=== PATIENT | male | born 1945 | race African-American/Black ===

== ENCOUNTER 2017-06-14 08:28 | Day surgery (SDC) | payer MEDICARE, BC ==
[2017-06-14 08:45] VITALS: BP 171/75; TEMP 98.2
[2017-06-14] MEDS ORDERED: Epoetin (ESRD) 10,000 UNITS/ML VIAL SC SCH (08:45)
[2017-06-14] MEDS ORDERED: FLU VACC TS2017-18 (>65YR) 0.5 ML SYRINGE IM ONE (12:00)
== END 2017-06-14 10:17 | disposition home or self-care (01) ==
LOC: ONC/OP 08:28
PROVIDERS: ATTEND Internal Medicine Nephrology
DX: D63.1 Anemia in chronic kidney disease (principal); E78.5 Hyperlipidemia, unspecified; E11.22 Type 2 diabetes mellitus with diabetic chronic kidney disease; I12.0 Hypertensive chronic kidney disease with stage 5 chronic kidney disease or end stage renal disease; N18.6 End stage renal disease; I25.10 Atherosclerotic heart disease of native coronary artery without angina pectoris; Z99.2 Dependence on renal dialysis; Z88.1 Allergy status to other antibiotic agents; Z87.891 Personal history of nicotine dependence; Z79.01 Long term (current) use of anticoagulants; Z79.82 Long term (current) use of aspirin; Z79.84 Long term (current) use of oral hypoglycemic drugs; Z90.5 Acquired absence of kidney; Z95.9 Presence of cardiac and vascular implant and graft, unspecified
CPT/HCPCS: 85014; 85018; 85049; 96372; Q4081

== ENCOUNTER 2017-06-28 10:04 | Day surgery (SDC) | payer MEDICARE, BC ==
[2017-06-28 10:21] VITALS: BP 115/70; TEMP 98.3
[2017-06-28] MEDS ORDERED: Epoetin (ESRD) 10,000 UNITS/ML VIAL SC SCH (10:30)
[2017-06-28 10:38] LABS: Hematocrit 31.8 % (42.0-52.0)
--- OUTSIDE RECORDS SUMMARY | 2017-07-03 03:56 | XMS | Clinical Summary ---
:1945 Author Organization [facility] Address [address] [place] [address] Phone Care Team Providers Name Role Phone , Primary Care Provider Unavailable Allergies Active Allergy Reactions Severity Noted Date Comments Cefaclor Rash Low 08/21/2012 Current Medications Prescription Sig. Disp. Refills Start Date End Date Status GLYBURIDE ORAL Take 10 mg by mouth Active daily . HYDROcodone-acetaminophen Take 1 tablet by Active (VICODIN) 5-500 mg per mouth every 6 (six) tablet hours as needed. 1-2 tabs as needed sevelamer (RENVELA) 800 Take 800 mg by Active mg tablet mouth 3 (three) times daily with meals . folic acid-multivitamins Take 1 tablet by Active (B COMPLEX-VITAMIN mouth daily. C-FOLIC ACID) 0.8 mg Tab tablet cholecalciferol, vitamin Take 3,000 Units by Active D3, 1,000 unit capsule mouth daily. fluticasone (FLONASE) 50 1 spray by Nasal Active mcg/actuation nasal spray route daily. cetirizine (ZYRTEC) 10 MG Take 10 mg by mouth Active tablet daily. atorvastatin (LIPITOR) 40 Take 40 mg by mouth Active MG tablet daily. metoprolol (TOPROL-XL) 50 Take 50 mg by mouth Active MG 24 hr tablet daily. cinacalcet (SENSIPAR) 30 Take 30 mg by mouth Active MG tablet daily. clopidogrel (PLAVIX) 75 Take 75 mg by mouth Active mg tablet daily. aspirin 81 MG EC tablet Take 81 mg by mouth Active daily. Active Problems Problem Noted Date Secondary hyperparathyroidism of renal origin (HCC) 11/06/2016 Essential hypertension with goal blood pressure less than 140/90 11/06/2016 Coronary artery disease involving [place] coronary artery of [place] heart 11/06 without angina pectoris Patient awaiting renal transplant 11/06/2016 End stage renal disease (HCC) 06/03/2015 Pre-transplant evaluation for ESRD (end stage renal disease) 06/03/2015 History of prostate cancer 06/03/2015 Preop testing 07/24/2013 CAD (coronary artery disease) 07/24/2013 ESRD (end stage renal disease) (HCC) 08/21/2012 HTN (hypertension) 08/21/2012 Hyperlipidemia 08/21/2012 Hemochromatosis 08/21/2012 Smoking 08/21/2012 Family History Medical History Relation Name Comments Unremarkable Brother Cristobal Unremarkable Brother Gus Diabetes Brother Ajay Hypertension Brother Ajay Colon cancer Father from it Breast cancer Mother Hypertension Mother Unremarkable Sister Velma Diabetes Sister Tatiana Hypertension Sister Tatiana Relation Name Status Comments Brother Josh Alive 39 Brother Cristobal Alive Brother Gus Alive 50 Brother Ajay Alive 68 Daughter Martina Alive 48 Daughter Daylin Alive 38 Daughter Scharanda Alive 42 Father (Age 70's) Colon cancer Mother (Age 73) Breast cancer Sister (Age 2 mo) pneumonia Sister Velma Alive 40 Sister Catia Alive 58 Sister Tatiana Alive 62 Son Caio Alive 35 Son Donato Alive 35 Son Afia Alive 25 Son Mauricio Alive 38 Social History Tobacco Use Types Packs/Day Years Used Date Never Smoker Smokeless Tobacco: Never Used Alcohol Use Drinks/Week oz/Week Comments No 0.0 No alcohol use Sex Assigned at Date Recorded Not on file Last Filed Vital Signs Vital Sign Reading Time Taken Blood Pressure 178/84 11/06/2016 10:48 AM AUDIO VIDEO REPAIRER Pulse 97 11/06/2016 10:48 AM AUDIO VIDEO REPAIRER Temperature 35.9 C (96.7 F) 11/06/2016 10:48 AM AUDIO VIDEO REPAIRER Respiratory Rate 18 11/06/2016 10:48 AM AUDIO VIDEO REPAIRER Oxygen Saturation 100% 07/25/2013 11:32 AM AUDIO VIDEO REPAIRER Inhaled Oxygen Concentration - - Weight 98.5 kg (217 lb 1.6 oz) 11/06/2016 10:48 AM AUDIO VIDEO REPAIRER Height 175.3 cm (5' 9") 11/06/2016 10:48 AM AUDIO VIDEO REPAIRER Body Mass Index 32.06 11/06/2016 10:48 AM AUDIO VIDEO REPAIRER Plan of Treatment Health Maintenance Due Date Last Done Comments INFLUENZA VACCINE 06/09/2017 Results Not on filefrom Last 3 Months
== END 2017-06-28 10:50 | disposition home or self-care (01) ==
LOC: ONC/OP 10:04
PROVIDERS: ATTEND Internal Medicine Nephrology
DX: E11.22 Type 2 diabetes mellitus with diabetic chronic kidney disease (principal); N18.6 End stage renal disease; D63.1 Anemia in chronic kidney disease; E78.5 Hyperlipidemia, unspecified; Z88.1 Allergy status to other antibiotic agents; Z87.891 Personal history of nicotine dependence
CPT/HCPCS: 36415; 85014; 85018; 85049; 96372; Q4081

== ENCOUNTER 2017-07-12 09:59 | Day surgery (SDC) | payer MEDICARE, BC ==
[2017-07-12 10:28] LABS: Hematocrit 31.8 % (42.0-52.0)
[2017-07-12] MEDS ORDERED: Epoetin (ESRD) 10,000 UNITS/ML VIAL SC SCH (10:30)
--- OUTSIDE RECORDS SUMMARY | 2017-07-12 10:41 | XMS | Clinical Summary ---
:1945 Author Organization [facility] Address [address] [place] [address] Phone Care Team Providers Name Role Phone [...] than 140/90 11/06/2016 Coronary artery disease involving [place] coronary artery of [place] heart 11/06 without angina pectoris Patient awaiting [...] Taken Blood Pressure 178/84 11/06/2016 10:48 AM TRADE EMBALMER Pulse 97 11/06/2016 10:48 AM TRADE EMBALMER Temperature 35.9 C (96.7 F) 11/06/2016 10:48 AM TRADE EMBALMER Respiratory Rate 18 11/06/2016 10:48 AM TRADE EMBALMER Oxygen Saturation 100% 07/25/2013 11:32 AM TRADE EMBALMER Inhaled Oxygen Concentration - - Weight 98.5 kg (217 lb 1.6 oz) 11/06/2016 10:48 AM TRADE EMBALMER Height 175.3 cm (5' 9") 11/06/2016 10:48 AM TRADE EMBALMER Body Mass Index 32.06 11/06/2016 10:48 AM TRADE EMBALMER Plan of Treatment Health Maintenance Due Date Last Done Comments INFLUENZA VACCINE 06/09/2017 Results Not on filefrom Last 3 Months
[2017-07-12 16:06] VITALS: BP 140/62; TEMP 98.6
== END 2017-07-12 16:06 | disposition home or self-care (01) ==
LOC: ONC/OP 09:59
PROVIDERS: ATTEND Internal Medicine Nephrology
DX: E11.22 Type 2 diabetes mellitus with diabetic chronic kidney disease (principal); N18.6 End stage renal disease; D63.1 Anemia in chronic kidney disease; E78.5 Hyperlipidemia, unspecified; Z88.1 Allergy status to other antibiotic agents; Z87.891 Personal history of nicotine dependence
CPT/HCPCS: 36415; 85014; 85018; 96372; Q4081

== ENCOUNTER 2017-07-29 09:27 | Day surgery (SDC) | payer MEDICARE, BC ==
[2017-07-29 09:41] VITALS: BP 136/63; TEMP 97.9
[2017-07-29] MEDS ORDERED: Epoetin (ESRD) 10,000 UNITS/ML VIAL SC SCH (09:45)
[2017-07-29 10:01] LABS: Hematocrit 29.3 % (42.0-52.0)
== END 2017-07-29 16:59 | disposition home or self-care (01) ==
LOC: ONC/OP 09:27
PROVIDERS: ATTEND Internal Medicine Nephrology
DX: I12.0 Hypertensive chronic kidney disease with stage 5 chronic kidney disease or end stage renal disease (principal); N18.6 End stage renal disease; E11.22 Type 2 diabetes mellitus with diabetic chronic kidney disease; D63.1 Anemia in chronic kidney disease; E78.5 Hyperlipidemia, unspecified; Z79.82 Long term (current) use of aspirin; Z79.02 Long term (current) use of antithrombotics/antiplatelets; Z79.84 Long term (current) use of oral hypoglycemic drugs; Z79.899 Other long term (current) drug therapy; Z99.2 Dependence on renal dialysis; Z88.1 Allergy status to other antibiotic agents; Z90.5 Acquired absence of kidney; Z90.79 Acquired absence of other genital organ(s); Z85.528 Personal history of other malignant neoplasm of kidney; Z85.46 Personal history of malignant neoplasm of prostate; Z87.891 Personal history of nicotine dependence
CPT/HCPCS: 36415; 85014; 85018; 96372

== ENCOUNTER 2017-08-09 09:55 | Day surgery (SDC) | payer MEDICARE, BC ==
[2017-08-09] MEDS ORDERED: Epoetin (ESRD) 20,000 UNITS/ML SC SCH (10:15)
[2017-08-09 10:19] LABS: Hematocrit 29.4 % (42.0-52.0)
[2017-08-09 10:38] VITALS: BP 137/62; TEMP 97.4
[2017-08-09 10:43] LABS: Iron 140 ug/dL (65-175)
== END 2017-08-09 11:53 | disposition home or self-care (01) ==
LOC: ONC/OP 09:55
PROVIDERS: ATTEND Internal Medicine Nephrology
DX: N18.9 Chronic kidney disease, unspecified (principal); D63.1 Anemia in chronic kidney disease; Z88.1 Allergy status to other antibiotic agents; Z87.891 Personal history of nicotine dependence
CPT/HCPCS: 36415; 82728; 83540; 83550; 85014; 85018; 96372; Q4081

== ENCOUNTER 2017-08-23 08:04 | Day surgery (SDC) | payer MEDICARE, BC ==
[2017-08-23 08:19] VITALS: BP 130/60; TEMP 97.5
[2017-08-23 08:30] LABS: Hematocrit 31.1 % (42.0-52.0)
[2017-08-23] MEDS ORDERED: Epoetin (ESRD) 20,000 UNITS/ML SC SCH (08:30)
== END 2017-08-23 08:51 | disposition home or self-care (01) ==
LOC: ONC/OP 08:04
PROVIDERS: ATTEND Internal Medicine Nephrology
DX: E11.22 Type 2 diabetes mellitus with diabetic chronic kidney disease (principal); I12.0 Hypertensive chronic kidney disease with stage 5 chronic kidney disease or end stage renal disease; N18.6 End stage renal disease; E78.5 Hyperlipidemia, unspecified; Z99.2 Dependence on renal dialysis; Z79.84 Long term (current) use of oral hypoglycemic drugs; Z79.02 Long term (current) use of antithrombotics/antiplatelets; Z79.82 Long term (current) use of aspirin; Z79.899 Other long term (current) drug therapy; Z88.1 Allergy status to other antibiotic agents; Z90.5 Acquired absence of kidney; Z85.46 Personal history of malignant neoplasm of prostate; Z85.528 Personal history of other malignant neoplasm of kidney; Z87.891 Personal history of nicotine dependence
CPT/HCPCS: 36415; 85014; 85018; 96372; Q4081

== ENCOUNTER 2017-09-06 09:49 | Day surgery (SDC) | payer MEDICARE, BC ==
[2017-09-06 09:58] VITALS: BP 128/62; TEMP 98.2
[2017-09-06 10:22] LABS: Hemoglobin 10.4 g/dL (14.0-18.0)
[2017-09-06] MEDS ORDERED: Epoetin (NON-ESRD) 20,000 UNITS/ML ML SC SCH (10:45)
== END 2017-09-06 12:29 | disposition home or self-care (01) ==
LOC: ONC/OP 09:49
PROVIDERS: ATTEND Internal Medicine Nephrology
DX: E11.22 Type 2 diabetes mellitus with diabetic chronic kidney disease (principal); I12.0 Hypertensive chronic kidney disease with stage 5 chronic kidney disease or end stage renal disease; N18.6 End stage renal disease; E78.5 Hyperlipidemia, unspecified; Z99.2 Dependence on renal dialysis; Z79.84 Long term (current) use of oral hypoglycemic drugs; Z79.02 Long term (current) use of antithrombotics/antiplatelets; Z79.82 Long term (current) use of aspirin; Z79.899 Other long term (current) drug therapy; Z88.1 Allergy status to other antibiotic agents; Z90.5 Acquired absence of kidney; Z90.79 Acquired absence of other genital organ(s); Z85.46 Personal history of malignant neoplasm of prostate; Z85.528 Personal history of other malignant neoplasm of kidney; Z87.891 Personal history of nicotine dependence
CPT/HCPCS: 36415; 85014; 85018; 96372; J0885

== ENCOUNTER 2017-09-23 08:45 | Day surgery (SDC) | payer MEDICARE, BC ==
[2017-09-23 09:14] VITALS: BP 159/66; TEMP 98.7
[2017-09-23 09:24] LABS: Hemoglobin 10.3 g/dL (14.0-18.0)
[2017-09-23] MEDS ORDERED: Epoetin (NON-ESRD) 20,000 UNITS/ML ML IVP SCH (10:00)
[2017-09-23] MEDS ORDERED: Epoetin (NON-ESRD) 20,000 UNITS/ML ML SC SCH (10:30)
[2017-09-23 10:35] LABS: Anion Gap 11 mmol/L (10-20); BUN (Urea Nitrogen) 52 mg/dL (8.4-25.7); Calc. Creatinine Clearance 0 mL/min (70-130); Calcium 10.5 mg/dL (7.8-10.44); Carbon Dioxide 23 mmol/L (23-31); Chloride 113 mmol/L (98-107); Estimated GFR-MDRD 19; Glucose 120 mg/dL (80-115); Potassium 4.8 mmol/L (3.5-5.1); Sodium 142 mmol/L (136-145)
== END 2017-09-23 11:04 | disposition home or self-care (01) ==
LOC: ONC/OP 08:45
PROVIDERS: ATTEND Internal Medicine Nephrology
DX: E11.22 Type 2 diabetes mellitus with diabetic chronic kidney disease (principal); N18.6 End stage renal disease; E78.5 Hyperlipidemia, unspecified; E83.119 Hemochromatosis, unspecified; Z88.1 Allergy status to other antibiotic agents; Z90.5 Acquired absence of kidney; Z85.46 Personal history of malignant neoplasm of prostate; Z99.2 Dependence on renal dialysis
CPT/HCPCS: 36415; 80048; 85014; 85018; 96372; J0885

== ENCOUNTER 2017-10-04 09:55 | Day surgery (SDC) | payer MEDICARE, BC ==
[2017-10-04 10:22] LABS: Hemoglobin 11.1 g/dL (14.0-18.0)
== END 2017-10-04 10:31 | disposition home or self-care (01) ==
LOC: ONC/OP 09:55
PROVIDERS: ATTEND Internal Medicine Nephrology
DX: E11.22 Type 2 diabetes mellitus with diabetic chronic kidney disease (principal); I12.0 Hypertensive chronic kidney disease with stage 5 chronic kidney disease or end stage renal disease; N18.6 End stage renal disease; E78.5 Hyperlipidemia, unspecified; E11.51 Type 2 diabetes mellitus with diabetic peripheral angiopathy without gangrene; Z53.8 Procedure and treatment not carried out for other reasons; Z99.2 Dependence on renal dialysis; Z79.84 Long term (current) use of oral hypoglycemic drugs; Z79.02 Long term (current) use of antithrombotics/antiplatelets; Z79.82 Long term (current) use of aspirin; Z79.899 Other long term (current) drug therapy; Z88.1 Allergy status to other antibiotic agents; Z90.5 Acquired absence of kidney; Z90.79 Acquired absence of other genital organ(s); Z98.890 Other specified postprocedural states; Z85.528 Personal history of other malignant neoplasm of kidney; Z85.46 Personal history of malignant neoplasm of prostate; Z87.891 Personal history of nicotine dependence
CPT/HCPCS: 36415; 85014; 85018

== ENCOUNTER 2017-10-18 09:30 | Day surgery (SDC) | payer MEDICARE, BC ==
[2017-10-18 09:40] VITALS: BP 129/61; TEMP 97.6
[2017-10-18 10:00] LABS: Hemoglobin 10.6 g/dL (14.0-18.0)
[2017-10-18] MEDS ORDERED: Epoetin (ESRD) 10,000 UNITS/ML VIAL SC SCH (11:00)
== END 2017-10-18 11:21 | disposition home or self-care (01) ==
LOC: ONC/OP 09:30
PROVIDERS: ATTEND Internal Medicine Nephrology
DX: E11.22 Type 2 diabetes mellitus with diabetic chronic kidney disease (principal); I12.0 Hypertensive chronic kidney disease with stage 5 chronic kidney disease or end stage renal disease; N18.6 End stage renal disease; E78.5 Hyperlipidemia, unspecified; Z99.2 Dependence on renal dialysis; Z79.02 Long term (current) use of antithrombotics/antiplatelets; Z79.84 Long term (current) use of oral hypoglycemic drugs; Z79.82 Long term (current) use of aspirin; Z79.899 Other long term (current) drug therapy; Z88.1 Allergy status to other antibiotic agents; Z90.5 Acquired absence of kidney; Z90.79 Acquired absence of other genital organ(s); Z85.46 Personal history of malignant neoplasm of prostate; Z85.528 Personal history of other malignant neoplasm of kidney; Z87.891 Personal history of nicotine dependence
CPT/HCPCS: 36415; 85014; 85018; 96372

== ENCOUNTER 2017-11-01 08:52 | Day surgery (SDC) | payer MEDICARE, BC ==
[2017-11-01 09:27] VITALS: BP 152/69; TEMP 98.2
[2017-11-01 09:41] LABS: Hemoglobin 10.7 g/dL (14.0-18.0)
[2017-11-01] MEDS ORDERED: Epoetin (ESRD) 10,000 UNITS/ML VIAL SC SCH (10:00)
== END 2017-11-01 10:11 | disposition home or self-care (01) ==
LOC: ONC/OP 08:52
PROVIDERS: ATTEND Internal Medicine Nephrology
DX: I12.0 Hypertensive chronic kidney disease with stage 5 chronic kidney disease or end stage renal disease (principal); E11.22 Type 2 diabetes mellitus with diabetic chronic kidney disease; N18.6 End stage renal disease; D63.1 Anemia in chronic kidney disease; E78.5 Hyperlipidemia, unspecified; Z88.1 Allergy status to other antibiotic agents; Z90.5 Acquired absence of kidney; Z99.2 Dependence on renal dialysis
CPT/HCPCS: 36415; 85014; 85018; 96372

== ENCOUNTER 2017-11-15 08:43 | Day surgery (SDC) | payer MEDICARE, BC ==
[2017-11-15 09:25] LABS: Hemoglobin 10.3 g/dL (14.0-18.0)
[2017-11-15] MEDS ORDERED: Epoetin (ESRD) 10,000 UNITS/ML VIAL SC SCH (09:45)
[2017-11-15 10:36] VITALS: BP 147/65; TEMP 97.9
== END 2017-11-15 10:36 | disposition home or self-care (01) ==
LOC: ONC/OP 08:43
PROVIDERS: ATTEND Internal Medicine Nephrology
DX: I12.0 Hypertensive chronic kidney disease with stage 5 chronic kidney disease or end stage renal disease (principal); E11.22 Type 2 diabetes mellitus with diabetic chronic kidney disease; N18.6 End stage renal disease; E11.51 Type 2 diabetes mellitus with diabetic peripheral angiopathy without gangrene; E78.5 Hyperlipidemia, unspecified; Z88.1 Allergy status to other antibiotic agents; Z90.5 Acquired absence of kidney; Z99.2 Dependence on renal dialysis; Z85.528 Personal history of other malignant neoplasm of kidney; Z85.46 Personal history of malignant neoplasm of prostate
CPT/HCPCS: 85014; 85018; 96372; Q4081

== ENCOUNTER 2017-11-29 08:42 | Day surgery (SDC) | payer MEDICARE, BC ==
[2017-11-29 08:50] VITALS: BP 169/69; TEMP 98.1
== END 2017-11-29 09:30 | disposition home or self-care (01) ==
LOC: ONC/OP 08:42
PROVIDERS: ATTEND Internal Medicine Nephrology
DX: D64.9 Anemia, unspecified (principal); Z88.1 Allergy status to other antibiotic agents; Z53.8 Procedure and treatment not carried out for other reasons
CPT/HCPCS: 36415; 85014; 85018

== ENCOUNTER 2018-01-10 09:07 | Day surgery (SDC) | payer MEDICARE, BC ==
[2018-01-10] MEDS ORDERED: Epoetin (ESRD) 10,000 UNITS/ML VIAL SC SCH (09:45)
[2018-01-10 10:00] VITALS: BP 163/70; TEMP 98.1
== END 2018-01-10 10:24 | disposition home or self-care (01) ==
LOC: ONC/OP 09:07
PROVIDERS: ATTEND Internal Medicine Nephrology
DX: E11.22 Type 2 diabetes mellitus with diabetic chronic kidney disease (principal); I12.0 Hypertensive chronic kidney disease with stage 5 chronic kidney disease or end stage renal disease; N18.6 End stage renal disease; D63.1 Anemia in chronic kidney disease; Z99.2 Dependence on renal dialysis; Z79.84 Long term (current) use of oral hypoglycemic drugs; Z79.82 Long term (current) use of aspirin; Z79.02 Long term (current) use of antithrombotics/antiplatelets; Z79.899 Other long term (current) drug therapy; Z88.1 Allergy status to other antibiotic agents; Z90.5 Acquired absence of kidney; Z85.528 Personal history of other malignant neoplasm of kidney; Z85.46 Personal history of malignant neoplasm of prostate
CPT/HCPCS: 36415; 85014; 85018; 96372; Q4081

== ENCOUNTER 2018-02-07 08:48 | Day surgery (SDC) | payer MEDICARE, BC ==
[2018-02-07] MEDS ORDERED: Epoetin (ESRD) 10,000 UNITS/ML VIAL SC SCH (09:00)
[2018-02-07 09:35] LABS: Hemoglobin 8.7 g/dL (14.0-18.0); Platelet Count 141 thou/uL (130-400)
== END 2018-02-07 18:40 | disposition home or self-care (01) ==
LOC: ONC/OP 08:48
PROVIDERS: ATTEND Internal Medicine Nephrology
DX: I12.0 Hypertensive chronic kidney disease with stage 5 chronic kidney disease or end stage renal disease (principal); E11.22 Type 2 diabetes mellitus with diabetic chronic kidney disease; N18.6 End stage renal disease; D63.1 Anemia in chronic kidney disease; Z99.2 Dependence on renal dialysis; Z79.84 Long term (current) use of oral hypoglycemic drugs; Z79.82 Long term (current) use of aspirin; Z79.02 Long term (current) use of antithrombotics/antiplatelets; Z79.899 Other long term (current) drug therapy; Z88.1 Allergy status to other antibiotic agents; Z90.5 Acquired absence of kidney; Z85.528 Personal history of other malignant neoplasm of kidney; Z85.46 Personal history of malignant neoplasm of prostate
CPT/HCPCS: 36415; 85014; 85018; 85049; 96372; Q4081

== ENCOUNTER 2018-03-10 08:48 | Day surgery (SDC) | payer MEDICARE, BC ==
[2018-03-10 09:57] LABS: Hemoglobin 9.9 g/dL (14.0-18.0); Platelet Count 115 thou/uL (130-400)
[2018-03-10] MEDS ORDERED: Epoetin (NON-ESRD) 20,000 UNITS/ML ML IVP SCH (10:15)
[2018-03-10 10:37] VITALS: BP 149/67; TEMP 98
== END 2018-03-10 10:38 | disposition home or self-care (01) ==
LOC: ONC/OP 08:48
PROVIDERS: ATTEND Internal Medicine Nephrology
DX: N18.9 Chronic kidney disease, unspecified (principal); D63.1 Anemia in chronic kidney disease; Z88.1 Allergy status to other antibiotic agents
CPT/HCPCS: 36415; 85014; 85018; 85049; 96372; J0885

== ENCOUNTER 2018-04-18 08:53 | Day surgery (SDC) | payer MEDICARE, BC ==
[2018-04-18 09:13] VITALS: BP 127/61; TEMP 97.8
[2018-04-18 09:55] LABS: Hemoglobin 8.5 g/dL (14.0-18.0); Platelet Count 269 thou/uL (130-400)
[2018-04-18] MEDS ORDERED: Epoetin (ESRD) 20,000 UNITS/ML SC SCH (10:00)
== END 2018-04-18 13:11 | disposition home or self-care (01) ==
LOC: ONC/OP 08:53
PROVIDERS: ATTEND Internal Medicine Nephrology
DX: N18.9 Chronic kidney disease, unspecified (principal); D63.1 Anemia in chronic kidney disease; Z79.02 Long term (current) use of antithrombotics/antiplatelets; Z79.82 Long term (current) use of aspirin; Z79.84 Long term (current) use of oral hypoglycemic drugs; Z79.899 Other long term (current) drug therapy; Z88.1 Allergy status to other antibiotic agents
CPT/HCPCS: 36415; 85014; 85018; 85049; 96372; Q4081

== ENCOUNTER 2018-06-13 08:50 | Day surgery (SDC) | payer MEDICARE, BC ==
[2018-06-13 09:11] VITALS: BP 169/71; TEMP 98.1
[2018-06-13 09:26] LABS: Hemoglobin 10.5 g/dL (14.0-18.0); Platelet Count 132 thou/uL (130-400)
[2018-06-13] MEDS ORDERED: Epoetin (ESRD) 20,000 UNITS/ML SC SCH (09:45)
== END 2018-06-13 10:12 | disposition home or self-care (01) ==
LOC: ONC/OP 08:50
PROVIDERS: ATTEND Internal Medicine Nephrology
DX: N18.9 Chronic kidney disease, unspecified (principal); D63.1 Anemia in chronic kidney disease
CPT/HCPCS: 36415; 85014; 85018; 85049; 96372; Q4081

== ENCOUNTER 2018-07-11 08:59 | Day surgery (SDC) | payer MEDICARE, BC ==
[2018-07-11 09:32] LABS: Hemoglobin 10.7 g/dL (14.0-18.0); Platelet Count 124 thou/uL (130-400)
[2018-07-11] MEDS ORDERED: Epoetin (ESRD) 10,000 UNITS/ML VIAL ONE (09:43)
[2018-07-11] MEDS ORDERED: Epoetin (ESRD) 10,000 UNITS/ML VIAL SC SCH (10:00)
[2018-07-11 12:01] VITALS: BP 163/71; TEMP 97.9
== END 2018-07-11 12:01 | disposition home or self-care (01) ==
LOC: ONC/OP 08:59
PROVIDERS: ATTEND Internal Medicine Nephrology
DX: N18.9 Chronic kidney disease, unspecified (principal); D63.1 Anemia in chronic kidney disease
CPT/HCPCS: 36415; 85014; 85018; 85049; 96372; Q4081

== ENCOUNTER 2018-08-08 08:45 | Day surgery (SDC) | payer MEDICARE, BC ==
[2018-08-08 09:23] LABS: Hemoglobin 10.2 g/dL (14.0-18.0)
[2018-08-08] MEDS ORDERED: Epoetin (ESRD) 10,000 UNITS/ML VIAL ONE (09:42)
[2018-08-08 10:00] VITALS: BP 191/83; TEMP 98.4
[2018-08-08] MEDS ORDERED: Epoetin (ESRD) 10,000 UNITS/ML VIAL SC SCH (10:00)
== END 2018-08-08 14:32 | disposition home or self-care (01) ==
LOC: ONC/OP 08:45
PROVIDERS: ATTEND Internal Medicine Nephrology
DX: N18.9 Chronic kidney disease, unspecified (principal); D63.1 Anemia in chronic kidney disease
CPT/HCPCS: 36415; 85014; 85018; 96372; Q4081

== ENCOUNTER 2018-09-05 08:17 | Day surgery (SDC) | payer MEDICARE, BC ==
[2018-09-05 08:43] VITALS: BP 156/71; TEMP 97.9
[2018-09-05 09:06] LABS: Hemoglobin 9.9 g/dL (14.0-18.0)
[2018-09-05] MEDS ORDERED: Epoetin (ESRD) 10,000 UNITS/ML VIAL ONE (09:10)
== END 2018-09-05 10:06 | disposition home or self-care (01) ==
LOC: ONC/OP 08:17
PROVIDERS: ATTEND Internal Medicine Nephrology
DX: N18.9 Chronic kidney disease, unspecified (principal); D63.1 Anemia in chronic kidney disease
CPT/HCPCS: 36415; 85014; 85018; 96372; Q4081

== ENCOUNTER 2018-10-03 07:35 | Day surgery (SDC) | payer MEDICARE, BC ==
[2018-10-03 08:55] LABS: Hemoglobin 9.4 g/dL (14.0-18.0)
[2018-10-03] MEDS ORDERED: Epoetin (ESRD) 10,000 UNITS/ML VIAL ONE (08:59)
[2018-10-03 09:15] VITALS: BP 151/69; TEMP 98.4
[2018-10-03] MEDS ORDERED: Epoetin (ESRD) 10,000 UNITS/ML VIAL SC SCH (09:15)
== END 2018-10-03 11:04 | disposition home or self-care (01) ==
LOC: ONC/OP 07:35
PROVIDERS: ATTEND Internal Medicine Nephrology
DX: N18.9 Chronic kidney disease, unspecified (principal); D63.1 Anemia in chronic kidney disease; Z79.02 Long term (current) use of antithrombotics/antiplatelets; Z79.82 Long term (current) use of aspirin; Z79.84 Long term (current) use of oral hypoglycemic drugs; Z79.899 Other long term (current) drug therapy; Z88.1 Allergy status to other antibiotic agents
CPT/HCPCS: 36415; 85014; 85018; 96374; Q4081

== ENCOUNTER 2018-11-03 08:46 | Day surgery (SDC) | payer MEDICARE, BC ==
[2018-11-03 09:05] VITALS: BP 156/70; TEMP 98.3
[2018-11-03 09:42] LABS: Band 1 % (5-11); Eosinophils 2 % (0-10); Hemoglobin 10.1 g/dL (14.0-18.0); Hypochromia SLIGHT = 6-15 cells (100X) (0-5/hpf); Lymphocytes 19 % (21-51); MDiff Complete? YES; Mean Corpuscular HGB CONC 30.6 g/dL (32.0-36.0); Mean Corpuscular Hemoglobin 30.9 pg (27.0-31.0); Mean Platelet Volume 10.8 fL (7.4-10.4); Monocytes 5 % (0-10); Neutrophil 73 % (42-75); Ovalocytes SLIGHT = 2-5 cells (100X) (0-1/hpf); Platelet Clumps SLIGHT; Platelet Count 52 thou/uL (130-400); Platelet Morphology Comment Appears Decreased; Polychromasia SLIGHT = 2-3 cells (100X) (0-2/hpf); Red Blood Cell (RBC) Count 3.28 mill/uL (4.70-6.10); Schistocytes SLIGHT = 2-5 cells (100X) (0-1/hpf); White Blood Cell (WBC) Count 4.1 thou/uL (4.8-10.8)
[2018-11-03] MEDS ORDERED: Epoetin (ESRD) 10,000 UNITS/ML VIAL FS SCH (10:00)
== END 2018-11-03 11:31 | disposition home or self-care (01) ==
LOC: ONC/OP 08:46
PROVIDERS: ATTEND Internal Medicine Nephrology
DX: N18.9 Chronic kidney disease, unspecified (principal); D63.1 Anemia in chronic kidney disease
CPT/HCPCS: 36415; 85025; 96372; Q4081

== ENCOUNTER 2018-12-05 08:15 | Day surgery (SDC) | payer MEDICARE, BC ==
[2018-12-05 08:54] LABS: #Lymphocytes 0.4 thou/uL (1.20-3.40); #Monocytes 0.3 thou/uL (0.11-0.59); #Neutrophils 2.4 thou/uL (1.40-6.50); %Basophils 1.1 % (0.0-1.0); %Eosinophils 1.4 % (0.0-10.0); %Lymphocytes 11.9 % (21.0-51.0); %Monocytes 10.1 % (0.0-10.0); %Neutrophils 75.6 % (42.0-75.0); Hemoglobin 9.7 g/dL (14.0-18.0); Mean Corpuscular HGB CONC 32.1 g/dL (32.0-36.0); Mean Corpuscular Hemoglobin 30.5 pg (27.0-31.0); Mean Corpuscular Volume 95.1 fL (78.0-98.0); Mean Platelet Volume 8.6 fL (7.4-10.4); Platelet Count 122 thou/uL (130-400); RBC Distribution Width 14.4 % (11.5-14.5); Red Blood Cell (RBC) Count 3.16 mill/uL (4.70-6.10); White Blood Cell (WBC) Count 3.2 thou/uL (4.8-10.8)
[2018-12-05] MEDS ORDERED: Epoetin (ESRD) 10,000 UNITS/ML VIAL IVP SCH (09:00)
[2018-12-05 12:46] VITALS: BP 175/71; TEMP 97.7
== END 2018-12-05 12:47 | disposition home or self-care (01) ==
LOC: ONC/OP 08:15
PROVIDERS: ATTEND Internal Medicine Nephrology
DX: N18.9 Chronic kidney disease, unspecified (principal); D63.1 Anemia in chronic kidney disease; Z88.1 Allergy status to other antibiotic agents
CPT/HCPCS: 85025; 96372; Q4081

== ENCOUNTER 2019-01-02 08:20 | Day surgery (SDC) | payer MEDICARE, BC ==
[2019-01-02 08:40] VITALS: BP 170/67; TEMP 97.7
[2019-01-02 09:04] LABS: Hemoglobin 8.8 g/dL (14.0-18.0)
[2019-01-02] MEDS ORDERED: Epoetin (ESRD) 10,000 UNITS/ML VIAL SC SCH ×2 (09:15)
== END 2019-01-02 09:32 | disposition home or self-care (01) ==
LOC: ONC/OP 08:20
PROVIDERS: ATTEND Internal Medicine Nephrology
DX: N18.9 Chronic kidney disease, unspecified (principal); D63.1 Anemia in chronic kidney disease; Z88.1 Allergy status to other antibiotic agents
CPT/HCPCS: 85014; 85018; 96372; Q4081

== ENCOUNTER 2019-01-27 12:47 | Inpatient (IN) | payer MEDICARE, BC ==
[2019-01-27 13:37] LABS: #Lymphocytes 0.4 thou/uL (1.20-3.40); #Monocytes 0.3 thou/uL (0.11-0.59); #Neutrophils 2.9 thou/uL (1.40-6.50); %Basophils 0.1 % (0.0-1.0); %Lymphocytes 11.3 % (21.0-51.0); %Monocytes 7.2 % (0.0-10.0); %Neutrophils 80.4 % (42.0-75.0); Hemoglobin 9.6 g/dL (14.0-18.0); Mean Corpuscular HGB CONC 31.9 g/dL (32.0-36.0); Mean Corpuscular Hemoglobin 31.9 pg (27.0-31.0); Mean Platelet Volume 9.6 fL (7.4-10.4); Platelet Count 122 thou/uL (130-400); RBC Distribution Width 15.1 % (11.5-14.5); White Blood Cell (WBC) Count 3.6 thou/uL (4.8-10.8)
[2019-01-27 14:04] LABS: ALT (SGPT) 26 U/L (8-55); AST (SGOT) 28 U/L (5-34); Albumin 4.3 g/dL (3.4-4.8); Alkaline Phosphatase 94 U/L (40-150); Anion Gap 12 mmol/L (10-20); BUN (Urea Nitrogen) 63 mg/dL (8.4-25.7); Bilirubin, Total 0.4 mg/dL (0.2-1.2); Calc. Creatinine Clearance 0 mL/min (70-130); Calcium 9.9 mg/dL (7.8-10.44); Carbon Dioxide 16 mmol/L (23-31); Chloride 114 mmol/L (98-107); Estimated GFR-MDRD 15; Globulin 3.1 g/dL (2.4-3.5); Glucose 111 mg/dL (83-110); Lipase 65 U/L (8-78); Potassium 5.2 mmol/L (3.5-5.1); Protein, Total 7.4 g/dL (5.8-8.1); Sodium 137 mmol/L (136-145)
[2019-01-27 14:15] LABS: Phosphorus 4.8 mg/dL (2.3-4.7)
[2019-01-27 14:18] LABS: Hemoglobin A1c 4.4 % (4.0-6.0)
[2019-01-27 15:21] LABS: Bilirubin Negative (Negative); Blood, Urine Negative (Negative); Clarity CLEAR (Clear); Glucose, Urine (Dipstick) Negative (Negative); Leukocyte Negative (Negative); Nitrite Negative (Negative); Protein, Urine (Dipstick) 100 mg/dL (Neg-Trace); Specific Gravity, Urine 1.013 (1.002-1.036); Urobilinogen 0.2 mg/dL (0.2-1.0); pH, Urine 5.5 (5.0-9.0)
[2019-01-27 15:27] LABS: Bacteria/HPF None Seen HPF (None Seen); Hyaline Casts/LPF 0-3 HYALINE CAST LPF (0-3 Hyaline); Squamous Epithelial None Seen HPF (0-3); WBC/HPF None Seen HPF (0-3)
[2019-01-27] MEDS ORDERED: cloNIDine 0.1 MG TAB PO SCH (18:15)
[2019-01-27] MEDS ORDERED: Ondansetron PF 4 MG/2 ML Vial IVP PRN (20:25)
[2019-01-27] MEDS ORDERED: Ondansetron ODT 4 MG TAB PO PRN ×2 (20:25→20:26)
[2019-01-27] MEDS ORDERED: Acetaminophen 325 MG TAB PO PRN (20:25)
[2019-01-27] MEDS ORDERED: Dronabinol 2.5 MG CAP PO PRN (20:26)
[2019-01-27] MEDS ORDERED: Dextrose 5% in Water 1,000 ML IV PRN (20:51)
[2019-01-27] MEDS ORDERED: Dextrose 50% Abboject 50 ML SYRINGE SLOW IVP PRN (20:51)
[2019-01-27] MEDS ORDERED: HumaLOG 300 UNITS/3 ML VIAL SC PRN (20:51)
[2019-01-27] MEDS ORDERED: Famotidine 20 MG TAB PO SCH (21:00)
[2019-01-27] MEDS: Sodium Bicarbonate 150 MEQ in Dextrose 5% in Water 1,000 ML IV SCH (21:32)
[2019-01-27] MEDS: Tacrolimus 0.5 MG CAP PO SCH (21:42)
[2019-01-27] MEDS: Tacrolimus 1 MG CAP PO SCH (21:42)
[2019-01-28 05:39] LABS: #Lymphocytes 0.4 thou/uL (1.20-3.40); #Monocytes 0.2 thou/uL (0.11-0.59); #Neutrophils 1.5 thou/uL (1.40-6.50); %Eosinophils 1.7 % (0.0-10.0); %Lymphocytes 18.6 % (21.0-51.0); %Monocytes 9.4 % (0.0-10.0); %Neutrophils 70.4 % (42.0-75.0); Hemoglobin 7.8 g/dL (14.0-18.0); Mean Corpuscular Hemoglobin 31.8 pg (27.0-31.0); Mean Corpuscular Volume 99.4 fL (78.0-98.0); Mean Platelet Volume 9.9 fL (7.4-10.4); Platelet Count 88 thou/uL (130-400); RBC Distribution Width 14.9 % (11.5-14.5); Red Blood Cell (RBC) Count 2.44 mill/uL (4.70-6.10); White Blood Cell (WBC) Count 2.2 thou/uL (4.8-10.8)
[2019-01-28] MEDS: Levothyroxine Sodium 50 MCG TAB PO SCH (05:52)
[2019-01-28 05:57] LABS: Albumin 3.5 g/dL (3.4-4.8); Anion Gap 12 mmol/L (10-20); BUN (Urea Nitrogen) 60 mg/dL (8.4-25.7); BUN/Creatinine Ratio 14.49; Calc. Creatinine Clearance 16 mL/min (70-130); Calcium 9.5 mg/dL (7.8-10.44); Carbon Dioxide 17 mmol/L (23-31); Chloride 114 mmol/L (98-107); Estimated GFR-MDRD 17; Glucose 94 mg/dL (83-110); Phosphorus 4.3 mg/dL (2.3-4.7); Potassium 4.6 mmol/L (3.5-5.1); Sodium 138 mmol/L (136-145)
[2019-01-28] MEDS: Atenolol 50 MG TAB PO SCH (07:31)
[2019-01-28] MEDS: Enoxaparin Sodium 30 MG/0.3 ML SYRINGE SC SCH (07:32)
--- NOTE | 2019-01-28 07:55 | HP ---
PRIMARY CARE DOCTOR: None reported. The patient used to see a doctor in [facility]. CODE STATUS: Full code. TIME OF EVALUATION: 8 p.m. CHIEF COMPLAINT: Weight loss of 20 pounds. HISTORY OF PRESENT ILLNESS: This is a 73 years old male patient with past medical history of kidney transplant, colon cancer, status post colon resection, prostate cancer. The patient came with severe diarrhea for more than a month with severe weigh loss of 20 pounds since November. The patient reported having 3-4 diarrhea on a daily basis and reported appetite is good. Also, he reported having generalized weakness. His symptoms were severe. No clear triggers, no alleviating factors. The patient follows with Dr. Smith, who is an oncologist in [facility]. He is not very familiar with the treatment that he is getting for cancer. He reported just having surgery, however, in the medication reconciliation there are other medications reported. REVIEW OF SYSTEMS: CONSTITUTIONAL: The patient had no fever or chills. The patient had generalized weakness, significant weight loss. RESPIRATORY: No cough, sputum production, or shortness of breath. CARDIOVASCULAR: No chest pain or palpitation. GASTROINTESTINAL: No nausea, no vomiting. The patient has severe diarrhea. No abdominal pain. BEHAVIORAL PEDIATRICIAN: No dizziness, headache or feeling lightheaded. GENITOURINARY: No burning on urination. EXTREMITIES: No leg swelling. All other systems were reviewed and negative except for the findings mentioned above. PAST MEDICAL HISTORY: Positive for stents, diabetes type 2, hypertension, dialysis fistula in the left arm. SURGICAL HISTORY: Dialysis shunt, kidney transplant recipient. PSYCHIATRIC HISTORY: No previous psych history. SOCIAL HISTORY: The patient denies alcohol, drugs and is a former tobacco user. FAMILY HISTORY: Reviewed, reported negative by the patient. KNOWN ALLERGIES: Ceclor, Ceftin, cephalosporins. REPORTED MEDICATIONS: 1. Atenolol. 2. Azathioprine. 3. Calcitriol. 4. Cyanocobalamin. 5. Dronabinol. 6. Procrit. 7. Famotidine. 8. Hydralazine. 9. Levothyroxine. 10. Zofran. 11. Prednisone. 12. Sodium bicarb. 13. Tacrolimus. PHYSICAL EXAMINATION: VITAL SIGNS: On presentation blood pressure 168/71 with heart rate 55, respiratory rate 19, temperature 97.5. Pain 0/10, oxygen saturation was 100 on room air. GENERAL APPEARANCE: The patient is alert, oriented, not in acute distress. HEENT: Eyes normal conjunctivae. Moist oral mucosa. Anicteric. No JVD. RESPIRATORY: Bilateral air entry. No rales. No wheezes. Symmetric expansion. CARDIOVASCULAR: Normal rate. Regular rhythm. No murmurs. No gallop. No edema. ABDOMEN: Soft. Normal bowel sounds. MUSCULOSKELETAL: Baseline range of motion and strength. No tenderness. SKIN: Warm, intact. No pallor. No rash. No redness. EXTREMITIES: Peripheral pulses are present. Capillary refill seems to be intact. NEUROLOGICAL: No evidence of any new focal weakness. Baseline speech. Cranial nerves seems to be intact. PSYCH: The patient is in good mood. No anxiety. Optimal judgment. LABORATORY DATA: Labs were reviewed. The patient has white count 3.6, hemoglobin 9.6, MCV 100, platelet count 122. Chemistry 137, potassium 5.2, chloride 114, carbon dioxide 16, anion gap 12, BUN 63, creatinine 4.72 with a GFR of 15, glucose 111. Hemoglobin A1c is 4.4, calcium 9.9, phosphorus 4.8. UA was done and was negative. ASSESSMENT AND PLAN: The patient will be placed in the hospital for the following medical problems. 1. Chronic diarrhea with significant weight loss. This most likely is a recurrence of colon cancer, the patient does have an oncologist here who might need to be consulted. We will start with consult from Gastroenterology since the last colonoscopy was done before colon surgery that was done in [facility]. Dr. Madison did a colonoscopy on 07/14/2014 with polypectomy. 2. Chronic kidney disease, status post kidney transplant. The patient is not on hemodialysis right now, however, creatinine is 4.72 and has been in that range before as per previous records. Dr. Prasad has been following this patient. We will call him for consultation. Reconcile home medications. 3. Uncontrolled hypertension. The patient presented with systolic blood pressure 218 and diastolic within normal limits. This has corrected. Reconcile home medications. Restart clonidine, hydralazine, and atenolol. 4. Controlled diabetes which was 111, reconcile home medications. Place the patient on sliding scale for optimal control. 5. Microcytic anemia. Hemoglobin 9.6. We will monitor, we will defer to Nephrology any further correction of anemia. 6. High non gap metabolic acidosis due to chronic kidney disease stage 4. Dr. Prasad is being consulted. 7. Deep venous thrombosis prophylaxis. 8. History of coronary artery disease is chronic, seems to be stable. Job ID: [id number]
--- NOTE | 2019-01-28 08:43 | CON ---
DATE OF CONSULTATION: 01/27/2019 REASON FOR CONSULTATION: Severe diarrhea, weight loss of 30 pounds over the last 2 months. HISTORY OF PRESENT ILLNESS: Mr. Mauricio Marsh is a very pleasant 73-year-old male, who is known to me for more than 20 years. The patient has not seen me over the last couple of years. The patient has had type 2 diabetes mellitus, hypothyroidism, chronic kidney disease. He had a left kidney transplant at [facility] in [place] in 2017. The patient has had a GI bleeding in 2018 and had a colonoscopy in [place]. He was found to have a sessile polyp over the ileocecal area, which was removed. The polyp showed carcinoma in situ with focal area of adenocarcinoma. He underwent right colectomy with ileostomy in April 2018 in [place]. The patient did well surgery. He has had some transient diarrhea for a while. The diarrhea began a problem in November 2018. He had been having diarrhea. He has had multiple large volume watery stools. Everytime he eats, he has to run to the bathroom. He says when he drinks water, the water comes out right away. He has been losing weight steadily. He lost about 10 pounds as per the patient's . The ER MD states he lost 20 pounds. The patient had 3 to 4 stools and stools are large volume watery stools. He has some minimal abdominal discomfort in the right upper quadrant area. He has had no fever. He has had no nausea, no vomiting. The patient has had some stool exam done in the past, which came back negative for any pathology. His tells me that they checked his stool for C. difficile sometime back and stools came back negative. The stool has been very foul smelling as per the patient and the patient's . There is no history of nausea or vomiting. There is history of hematochezia and dark stools. The patient complains of fatigue, tiredness, and weakness because of progressive weight loss, not able to keep any maintenance as he just has diarrhea after each meal. The patient has no history of any lactose intolerance. He has no relevant history. MEDICAL ILLNESS: 1. Hemochromatosis, has multiple phlebotomies over the years. 2. Coronary artery disease, status post stent placement. 3. Type 2 diabetes mellitus. 4. Hypertension. 5. Hemochromatosis. 6. Chronic kidney disease. 7. Colon polyps. 8. Colon cancer in April 2018, status post right colectomy and ileostomy. 9. Left radical nephrectomy for kidney transplant. 10. History of prostate cancer surgery in the past. 11. AV fistula for dialysis access. 12. Status post kidney transplant. He also had a right nephrectomy. ALLERGIES: CECLOR, CEFTIN, CEPHALOSPORINS. SOCIAL HISTORY: The patient does not smoke or drink alcohol. MEDICATIONS: Medication list reviewed. 1. Atenolol 100 mg p.o. once a day. 2. Azathioprine 50 mg once a day. 3. Calcitriol 0.25 mg once a day. 4. Vitamin B12 at 1000 mcg once a day. 5. Dronabinol 5 mg strength once a day. 6. He is on Procrit. 7. Famotidine. 8. Hydralazine. 9. Levothyroxine. 10. Zofran ODT. 11. Prednisone 5 mg once a day. 12. Sodium bicarbonate, etcetera. REVIEW OF SYSTEMS: A 10-point system review: CONSTITUTIONAL: History of weight loss, poor exercise tolerance, fatigue, and tiredness. No fever. HEAD: No chronic headache. No TIA. No syncope. EYES: No diplopia. No impaired vision. EARS: No ear pain or discharge. NOSE;: No nose bleeding. THROAT: No sore throat or difficulty swallowing. NECK: No neck pain or stiffness. LUNGS: No chronic coughing, hemoptysis, dyspnea. CARDIOVASCULAR: No chest pain. No palpitation. No dyspnea, orthopnea, or PND. GI: As in the history of present illness. : No dysuria or hematuria. MUSCULOSKELETAL: Occasional back pain, arthralgias. PHYSICAL EXAMINATION: GENERAL: He is a very pleasant, fragile-looking male, who appears very comfortable. He is awake, alert, and communicative. He is in no distress. VITAL SIGNS: Stable. Afebrile. Pulse is 63, blood pressure 218/88. HEENT: Conjunctivae are clear. NECK: Supple. No adenitis or thyromegaly noted. CARDIOVASCULAR: First and second heart sounds are heard. LUNGS: Clear to auscultation. ABDOMEN: Soft and nontender. He has a midline scar and also scar over the right quadrant from previous nephrectomy. No rebound or guarding. Bowel sounds are normal. EXTREMITIES: No edema. LABORATORY DATA: CBC; WBC 3600, hemoglobin is 9.6, hematocrit 30.1, MCV 100, platelet count is 122,000, polymorphs 80, lymphocytes 11. Serum chemistry; sodium 137, potassium 5.2, chloride 114, bicarb 16, BUN 63, creatinine 4.72, glucose is 111, phosphorus 4.8, calcium 9.9. Liver tests are normal. Lipase 65. CLINICAL IMPRESSION: 1. A 73-year-old with chronic diarrhea over the last 2 months. The patient has had a right colectomy with ileal resection in April 2018. The patient has lost may be about 20 to 30 pounds. He has no abdominal pain. No fever. No rectal bleeding. 2. Status post kidney transplant in 2017. 3. Diabetes. 4. Hypertension. 5. Kidney cancer, status post nephrectomy. 6. Prostate cancer surgery. 7. Hemochromatosis with phlebotomies in the past. 8. Colon polyps. RECOMMENDATIONS: I will send stool for ova and parasites, culture and C. difficile. If the stool studies come back negative, we will consider a trial of Questran 1 packet twice a day for possible bile salt malabsorption, which could be from ileal resection. I will make further recommendation after stool studies. Job ID: [id number]
[2019-01-28] MEDS: Tacrolimus 1 MG CAP PO SCH ×2 (08:53→21:07)
[2019-01-28] MEDS: Famotidine 20 MG TAB PO SCH (08:53)
[2019-01-28] MEDS: predniSONE 5 MG TAB PO SCH (08:54)
[2019-01-28] MEDS: azaTHIOprine 50 MG TAB PO SCH (08:54)
[2019-01-28] MEDS: Calcitriol 0.25 MCG CAP PO SCH (08:54)
[2019-01-28] MEDS: Tacrolimus 0.5 MG CAP PO SCH ×2 (08:54→21:07)
[2019-01-28] MEDS: Cyanocobalamin (Vitamin B-12) 1,000 MCG TAB PO SCH (08:54)
[2019-01-28] MEDS ORDERED: hydrALAZINE 25 MG TAB PO SCH (09:00)
--- NOTE | 2019-01-28 09:22 | CON ---
DATE OF CONSULTATION: 01/27/2019 CONSULTING PHYSICIAN: Osmar Martines MD REASON FOR CONSULTATION: Advanced chronic kidney disease in a patient with kidney transplant. IMPRESSION: 1. Severe allograft nephropathy, status post -donor renal transplant at [facility]. 2. Metabolic acidosis related to reduced GFR as well as chronic diarrhea. 3. Anemia of chronic kidney disease, on erythropoiesis-stimulating agent. 4. Mild metabolic acidosis related to advanced renal failure as well as metabolic acidosis with its potassium. 5. Failure to thrive with chronic diarrhea. PLAN: 1. Avoid dairy products as the patient likely does have wide lactulose intolerance at this stage. 2. Gentle rehydration with a bicarb-based infusion. 3. Renally dose all medications and avoid potentially nephrotoxic agents. 4. Gastroenterology workup. 5. Stool studies especially organisms given the immunosuppressed status of this patient. HISTORY OF PRESENT ILLNESS: History is that of 73-year-old gentleman with end-stage renal disease, status post renal transplant with significant allograft nephropathy, who for the past couple of months has lost about 20 to 25 pounds of body weight and continues to lose. The patient has been having diarrhea for quite some time. Once the patient eats anything, he moves his bowels. Therefore, this patient was brought to the ER, where on clinical evaluation revealed significant metabolic acidosis, mild hyperkalemia, and allograft nephropathy. As a result of these findings, the decision was taken to involve Renal in the management of this case. PAST MEDICAL HISTORY: Significant for, 1. End-stage renal disease, status post allograft nephropathy. 2. Hypertension. 3. Prostatic carcinoma, status post radical prostatectomy. 4. Anemia of chronic kidney disease. MEDICATIONS: Reviewed and as documented on [employer]. FAMILY HISTORY AND SOCIAL HISTORY: Pretty much unremarkable. No alcohol, no tobacco, and no illicit drug use. ALLERGIES: CEPHALOSPORINS AND QUINOLONES. REVIEW OF SYSTEMS: As documented in the body of the history. All other systems were reviewed and found not to be significantly related to presenting illness. PHYSICAL EXAMINATION: GENERAL: The patient was noted to be hemodynamically stable, but somewhat malnourished. CARDIOVASCULAR SYSTEM: First and second heart sounds were heard. RESPIRATORY SYSTEM: Clear to auscultation. DIGESTIVE SYSTEM: Revealed a benign abdomen with positive bowel sounds. EXTREMITIES: No peripheral edema. SKIN: No new gross rash. LYMPHATICS: No peripheral lymphadenopathy. SUMMARY: A 73-year-old gentleman with end-stage renal disease, status post allograft nephropathy, who presented here with chronic diarrhea and continued weight loss . Job ID: [id number]
[2019-01-28] MEDS: Sodium Bicarbonate 150 MEQ in Dextrose 5% in Water 1,000 ML IV SCH ×2 (10:34→23:58)
[2019-01-28 14:48] VITALS: BMI 21.7
[2019-01-28] MEDS: hydrALAZINE 20 MG/ML VIAL SLOW IVP PRN (16:06)
--- NOTE | 2019-01-28 16:45 | PRG ---
DATE OF SERVICE: 01/28/2019 SUBJECTIVE: This is a 73-year-old male, hospitalized with severe diarrhea, weight loss of nearly 20 pounds. The patient has had he is tolerating diet. No abdominal pain. No nausea. No vomiting. His vital signs are stable. He offers no complaints. OBJECTIVE: VITAL SIGNS: Afebrile, pulse is 64, blood pressure 150/68. CARDIOVASCULAR: Within normal limits. LUNGS: Within normal limits. ABDOMEN: Soft. No organomegaly. No tenderness. No masses. LABORATORY DATA: From today, WBC 2200, hemoglobin 7.8, hematocrit 24.3, MCV 99.4, platelet count 88,000. Chemistry panel; sodium 138, potassium 4.6, chloride 114, bicarb 17, BUN is 60, creatinine 4.14, glucose 94, calcium 9.5. CLINICAL IMPRESSION: 1. Chronic diarrhea with weight loss. 2. Colon cancer, status post right colectomy and ileal resection in April 2018. RECOMMENDATION: Obtain stool for C difficile, culture, ova and parasites. We will plan for a colonoscopy tomorrow. Job ID: [id number]
--- NOTE | 2019-01-28 18:56 | PRG ---
DATE OF SERVICE: 01/28/2019 SUBJECTIVE: Mr. Marsh is an extremely pleasant 73-year-old male with past medical history that is fairly complicated, which includes status post nephrectomy and kidney transplant in the past, recent right hemicolectomy after being diagnosed with colon cancer, hypertension, and coronary artery disease, who presented to the hospital with complaints of chronic diarrhea and unintentional weight loss of 20 pounds. While the patient has had chronic diarrhea for the past several months, he has had no bowel movement yet this morning at the time of my interview. He denies any nausea, vomiting. He denies any chest pain or shortness of breath. He has been seen in consultation with both Dr. Prasad and Dr. Madison. OBJECTIVE: VITAL SIGNS: Blood pressure 150/68, pulse 64, O2 saturation is 99% on room air, respirations 16, temperature 98.3. GENERAL: The patient is an male, resting comfortably in bed, in no acute distress. HEENT: Head is atraumatic and normocephalic. Mucous membranes are moist. NECK: Supple. No lymphadenopathy. No JVD CV: S1 and S2. Regular rate and rhythm. No appreciable murmurs, rubs, or gallops. LUNGS: Regular respiratory rate and pattern, overall clear to auscultation bilaterally. ABDOMEN: Soft. Positive bowel sounds. Nontender. Postsurgical scars evident and well healed. EXTREMITIES: No edema. +2 DP pulses bilaterally. NEUROLOGIC: Cranial nerves 2 through 12 intact. The patient is nonfocal. LABORATORY DATA: White blood cell count 2.2, RBC 2.44, hemoglobin 7.8, hematocrit 24.3, platelet count is 88, sodium 138, potassium 4.6, chloride 114, carbon dioxide 17, anion gap 12, BUN is 60, creatinine 4.14, glucose 142. Urinalysis negative aside from high level of proteinuria. ASSESSMENT: 1. Chronic diarrhea and unintentional weight loss over the last several months. 2. Colon cancer, status post right hemicolectomy 2017, with ileal resection. 3. History of prostate cancer, status post prostatectomy. 4. Status post kidney transplant December 31, 2016, now stage 4 chronic kidney disease with creatinine 4.1, on immunosuppressive therapy. 5. Pancytopenia. 6. Coronary artery disease, status post stent in the past, stable. 7. Type 2 diabetes mellitus. 8. Labile hypertension. PLAN: At this time Dr. Madison is planning for colonoscopy to be performed tomorrow. Regarding the patient's hypertension, we will increase the patient's hydralazine to 50 mg t.i.d., we will avoid all nephrotoxins. Appreciate GI and Nephrology input. Dr. Madison has recommended Questran Lite which we have also added to the patient's medication regimen. The patient is high risk given his multiple comorbidities, and meets inpatient criteria and will require at least two midnights at this time. Further recommendations based on hospital course. Job ID: [id number]
--- NOTE | 2019-01-28 20:44 | PRG ---
DATE OF SERVICE: 01/28/2019 SUBJECTIVE: The patient is seen and examined, noted with the following vital signs. OBJECTIVE: VITAL SIGNS: Afebrile. Temperature 98, pulse 57, respiratory rate of 16, O2 saturation of 100%, with blood pressure of 196/84 to 206/86. HEENT: Unremarkable. CARDIOVASCULAR SYSTEM: First and second heart sounds were heard. RESPIRATORY SYSTEM: Clear to auscultation. DIGESTIVE SYSTEM: Revealed a benign abdomen with positive bowel sounds. EXTREMITIES: No peripheral edema. SKIN: No new gross rash. LYMPHATICS: No peripheral lymphadenopathy. LABORATORY INVESTIGATION: Showed a hemoglobin of 7.8, with a white count of 2.2, platelets of 88,000. Chemistry showed a creatinine down to 4.14, BUN of 60, bicarb of 17. IMPRESSION: 1. End-stage renal disease, status post renal transplant. 2. Severe allograft nephropathy. 3. Anemia, partly anemia of chronic kidney disease, plus or minus iron deficiency. 4. Metabolic acidosis, marginal improvement. 5. Hypertension, seems to be suboptimally controlled. PLAN: 1. We will re-evaluate this patient's antihypertensive medications and make necessary adjustment to optimize hemodynamics. 2. We will continue with bicarb infusion for now. 3. Continue to hold dairy products. The patient's diarrhea seems to have improved status post discontinuation of all dairy products. 4. Renally dose all medications and avoid potentially nephrotoxic agents. 5. Further management to be dependent on the clinical course. The patient to undergo colonoscopy tomorrow. Job ID: [id number]
[2019-01-28] MEDS ORDERED: EPOETIN ALFA-EPBX (ESRD) 10,000 UNIT/ML VIAL SC SCH (21:00)
[2019-01-28] MEDS: hydrALAZINE 25 MG TAB PO SCH (21:07)
[2019-01-29] MEDS: hydrALAZINE 20 MG/ML VIAL SLOW IVP PRN ×2 (04:25→12:35)
[2019-01-29] MEDS: Levothyroxine Sodium 50 MCG TAB PO SCH (05:44)
[2019-01-29] MEDS: Atenolol 50 MG TAB PO SCH (05:45)
[2019-01-29] MEDS ORDERED: GoLYTELY 4,000 ml Bottle PO SCH (06:00)
[2019-01-29 06:11] LABS: Iron 67 ug/dL (65-175); Iron Binding Capacity, Total 178 mcg/dL (261-462)
[2019-01-29 06:12] LABS: Albumin 3.6 g/dL (3.4-4.8); Anion Gap 11 mmol/L (10-20); BUN (Urea Nitrogen) 54 mg/dL (8.4-25.7); BUN/Creatinine Ratio 14.06; Calc. Creatinine Clearance 17 mL/min (70-130); Calcium 9.4 mg/dL (7.8-10.44); Carbon Dioxide 24 mmol/L (23-31); Chloride 106 mmol/L (98-107); Estimated GFR-MDRD 19; Glucose 90 mg/dL (83-110); Iron 68 ug/dL (65-175); Phosphorus 3.3 mg/dL (2.3-4.7); Sodium 137 mmol/L (136-145)
[2019-01-29] MEDS: hydrALAZINE 25 MG TAB PO SCH ×3 (08:39→19:14)
[2019-01-29] MEDS: Famotidine 20 MG TAB PO SCH (08:40)
[2019-01-29] MEDS: predniSONE 5 MG TAB PO SCH (08:40)
[2019-01-29] MEDS: Calcitriol 0.25 MCG CAP PO SCH (08:40)
[2019-01-29] MEDS: azaTHIOprine 50 MG TAB PO SCH (08:40)
[2019-01-29] MEDS: Cyanocobalamin (Vitamin B-12) 1,000 MCG TAB PO SCH (08:40)
[2019-01-29] MEDS: Tacrolimus 0.5 MG CAP PO SCH ×2 (08:45→19:15)
[2019-01-29] MEDS: Enoxaparin Sodium 30 MG/0.3 ML SYRINGE SC SCH (08:47)
[2019-01-29] MEDS: Tacrolimus 1 MG CAP PO SCH ×2 (08:47→19:15)
[2019-01-29] MEDS: Cholestyramine/Aspartame 4 gm Packet PO SCH (12:31)
--- NOTE | 2019-01-29 12:33 | PDOC.PN ---
- Subjective Encounter Start Date: 01/29/19 Encounter Start Time: 10:00 Subjective: no abd pain or nausea -: almost finished his bowel prep -: family at bedside - Objective Resuscitation Status - Order Detail: 01/27/19 20:25 Resuscitation Status Routine Resuscitation Status: FULL: Full Resuscitation MAR Reviewed: Yes Vital Signs & Weight: Vital Signs (12 hours) Temp Pulse Resp BP BP Pulse Ox 01/29/19 11:34 98.2 F 56 L 20 179/72 H 100 01/29/19 08:39 57 L 199/69 H 01/29/19 08:00 97.6 F 57 L 18 199/69 H 98 01/29/19 05:45 186/78 H 01/29/19 04:25 186/78 H 01/29/19 04:00 98.4 F 70 16 186/78 H 98 Weight Admit Weight 155 lb 4.8 oz Weight 153 lb 14.4 oz I&O: 01/28/19 01/29/19 01/30/19 06:59 06:59 06:59 Intake Total 1081 360 Output Total 500 Balance 581 360 Result Diagrams: 01/28/19 04:46 01/29/19 05:12 Additional Labs: Accuchecks 01/29/19 01/29/19 01/28/19 11:38 04:15 21:19 POC Glucose 120 H 94 112 H 01/28/19 16:44 POC Glucose 158 H Phys Exam - Physical Examination HEENT: PERRLA, moist MMs Neck: no JVD, supple Respiratory: no wheezing, no rales Cardiovascular: RRR, no significant murmur Gastrointestinal: soft, non-tender, positive bowel sounds Musculoskeletal: no edema, pulses present Neurological: non-focal, moves all 4 limbs Psychiatric: normal affect, A&O x 3 Dx/Plan (1) CKD (chronic kidney disease) stage 4, GFR 15-29 ml/min Code(s): N18.4 - CHRONIC KIDNEY DISEASE, STAGE 4 (SEVERE) Status: Chronic (2) H/O malignant neoplasm of colon Code(s): Z85.038 - PERSONAL HISTORY OF MALIGNANT NEOPLASM OF LARGE INTESTINE Status: Chronic Comment: with prior right hemicolectomy and prox ilectomy 2017 (3) H/O kidney transplant Status: Acute (4) CAD (coronary artery disease) Code(s): I25.10 - ATHSCL HEART DISEASE OF [place] CORONARY ARTERY W/O ANG PCTRS Status: Chronic Qualifiers: Coronary Disease-Associated Artery/Lesion type: [place] artery [place] vs. transplanted heart: [place] heart Associated angina: without angina Qualified Code(s): I25.10 - Atherosclerotic heart disease of [place] coronary artery without angina pectoris (5) Anemia in chronic kidney disease Code(s): N18.9 - CHRONIC KIDNEY DISEASE, UNSPECIFIED; D63.1 - ANEMIA IN CHRONIC KIDNEY DISEASE Status: Chronic Qualifiers: Chronic kidney disease stage: stage 4 (severe) Qualified Code(s): N18.4 - Chronic kidney disease, stage 4 (severe); D63.1 - Anemia in chronic kidney disease (6) LARRY (acute kidney injury) Code(s): N17.9 - ACUTE KIDNEY FAILURE, UNSPECIFIED Status: Acute (7) Metabolic acidosis Code(s): E87.2 - ACIDOSIS Status: Acute Comment: sec to ckd/larry - Plan for colonoscopy today, h/o colon ca with weight loss -: has larry with ckd and met acidosis -: continue iv fluids with hco3 -: on imuran, prograf, prednisone for renal tx -: atenolol, hydralazine, questran, epogen weekly and synthroid * . Review of Systems - Medications/Allergies Allergies/Adverse Reactions: Allergies Allergy/AdvReac Type Severity Reaction Status Date / Time Cephalosporins Allergy Verified 01/27/19 17:27 ciprofloxacin [From Cipro] Allergy Hives Verified 01/27/19 17:27 ciprofloxacin HCl Allergy Verified 01/27/19 17:27 [From Cipro] Medications: Current Medications Acetaminophen (Tylenol) 650 mg PO Q4H PRN PRN Reason: Headache/Fever/Mild Pain (1-3) Atenolol (Tenormin) 100 mg PO DAILY [facility] Last Admin: 01/29/19 05:45 Dose: 100 mg Azathioprine (Imuran) 50 mg PO DAILY [facility] Last Admin: 01/29/19 08:40 Dose: 50 mg Calcitriol (Rocaltrol) 0.25 mcg PO DAILY [facility] Last Admin: 01/29/19 08:40 Dose: 0.25 mcg Cholestyramine Resin (Questran Light) 4 gm PO DAILY [facility] Cyanocobalamin (Vitamin B-12) 1,000 mcg PO DAILY [facility] Last Admin: 01/29/19 08:40 Dose: 1,000 mcg Dextrose/Water (Dextrose 50%) 25 gm SLOW IVP PRN PRN PRN Reason: Hypoglycemia Dronabinol (Marinol) 5 mg PO DAILY PRN PRN Reason: Nausea Enoxaparin Sodium (Lovenox) 30 mg SC 0900 [facility] Last Admin: 01/29/19 08:47 Dose: Not Given Famotidine (Pepcid) 20 mg PO QAM [facility] Last Admin: 01/29/19 08:40 Dose: 20 mg Glucagon (Glucagon) 1 mg IM PRN PRN PRN Reason: Hypoglycemia Hydralazine HCl (Apresoline) 10 mg SLOW IVP Q4H PRN PRN Reason: Hypertension Last Admin: 01/29/19 04:25 Dose: 10 mg Hydralazine HCl (Apresoline) 50 mg PO TID [facility] Last Admin: 01/29/19 08:39 Dose: 50 mg Sodium Bicarbonate 150 meq/ (Dextrose/Water) 1,150 mls @ 75 mls/hr IV .[id number] [facility] Last Admin: 01/28/19 23:58 Dose: 1,150 mls Dextrose/Water (D5w) 1,000 mls @ 0 mls/hr IV .Q0M PRN PRN Reason: Hypoglycemia Insulin Human Lispro (Humalog) 0 units SC .MILD SLIDING SCALE PRN PRN Reason: Mild Correctional Scale Levothyroxine Sodium (Synthroid) 50 mcg PO 0600 [facility] Last Admin: 01/29/19 05:44 Dose: 50 mcg Ondansetron HCl (Zofran) 4 mg IVP Q6H PRN PRN Reason: Nausea/Vomiting Ondansetron HCl (Zofran Odt) 4 mg PO Q6H PRN PRN Reason: Nausea Prednisone (Prednisone) 5 mg PO DAILY [facility] Last Admin: 01/29/19 08:40 Dose: 5 mg Sodium Chloride (Flush - Normal Saline) 10 ml IVF Q12HR [facility] Last Admin: 01/29/19 08:49 Dose: Not Given Sodium Chloride (Flush - Normal Saline) 10 ml IVF PRN PRN PRN Reason: Saline Flush Tacrolimus (Prograf) 0.5 mg PO BID [facility] Last Admin: 01/29/19 08:45 Dose: 0.5 mg Tacrolimus (Prograf) 2 mg PO BID [facility] Last Admin: 01/29/19 08:47 Dose: 2 mg
[2019-01-29] MEDS ORDERED: Ondansetron HCl/PF 4 MG/2 ML Vial IVP PRN (17:55)
[2019-01-29] MEDS ORDERED: Promethazine HCl 25 MG/ML VIAL IM PRN (17:55)
[2019-01-29] MEDS ORDERED: Promethazine HCl 25 MG/ML VIAL SLOW IVP PRN (17:55)
--- NOTE | 2019-01-29 19:56 | PRG ---
DATE OF SERVICE: 01/29/2019 SUBJECTIVE: The patient was noted with the following vital signs. PHYSICAL EXAMINATION: VITAL SIGNS: Afebrile, temperature 97.8, pulse 65, respiratory rate 16, O2 saturations 98%, blood pressure 175 to 192 over 80. GENERAL: The patient seems to be improving overall. HEENT: Unremarkable. CARDIOVASCULAR SYSTEM: First and second heart sounds were heard. RESPIRATORY SYSTEM: Clear to auscultation. DIGESTIVE SYSTEM: Benign abdomen. Positive bowel sounds. EXTREMITIES: No peripheral edema. SKIN: No new gross rash. LYMPHATICS: No peripheral lymphadenopathy. LABORATORY INVESTIGATION: Significant for chemistry with the creatinine down to 3.84, bicarb of 24, BUN of 84. Ferritin 1381 and iron of 67. IMPRESSION: 1. End-stage renal disease, status post renal transplant. 2. Severe allograft nephropathy, improving since patient got placed on bicarb drip. 3. Metabolic acidosis, resolved. 4. Anemia of chronic kidney disease. PLAN: 1. Continue with erythropoietin stimulating agent. 2. Discontinue bicarb drip. 3. If the patient's bicarb level begins to drop again, we will likely place the patient on long-term bicarb tablets. 4. Renally dose all medications and avoid potentially nephrotoxic agents. 5. Further management to be dependent on the clinical course. Job ID: [id number]
[2019-01-30] MEDS: Levothyroxine Sodium 50 MCG TAB PO SCH (06:07)
[2019-01-30 06:26] LABS: Albumin 3.5 g/dL (3.4-4.8); Anion Gap 12 mmol/L (10-20); BUN (Urea Nitrogen) 48 mg/dL (8.4-25.7); BUN/Creatinine Ratio 11.97; Calc. Creatinine Clearance 17 mL/min (70-130); Calcium 9.6 mg/dL (7.8-10.44); Carbon Dioxide 27 mmol/L (23-31); Chloride 105 mmol/L (98-107); Estimated GFR-MDRD 18; Glucose 76 mg/dL (83-110); Phosphorus 3.4 mg/dL (2.3-4.7); Potassium 4.2 mmol/L (3.5-5.1); Sodium 140 mmol/L (136-145)
[2019-01-30] MEDS: Atenolol 50 MG TAB PO SCH (07:58)
[2019-01-30] MEDS: Cyanocobalamin (Vitamin B-12) 1,000 MCG TAB PO SCH (07:58)
[2019-01-30] MEDS: Calcitriol 0.25 MCG CAP PO SCH (07:58)
[2019-01-30] MEDS: hydrALAZINE 25 MG TAB PO SCH ×2 (07:58→15:25)
[2019-01-30] MEDS: Cholestyramine/Aspartame 4 gm Packet PO SCH (07:59)
[2019-01-30] MEDS: azaTHIOprine 50 MG TAB PO SCH (07:59)
[2019-01-30] MEDS: Famotidine 20 MG TAB PO SCH (07:59)
[2019-01-30] MEDS: predniSONE 5 MG TAB PO SCH (07:59)
[2019-01-30] MEDS: Enoxaparin Sodium 30 MG/0.3 ML SYRINGE SC SCH (08:02)
--- NOTE | 2019-01-30 08:27 | OP ---
DATE OF PROCEDURE: 01/29/2019 OPERATIVE PROCEDURE: Colonoscopy with biopsy. PREOPERATIVE DIAGNOSES: A 73-year-old male with diarrhea and weight loss. He has had diarrhea for at least 2 months now. The patient has weight loss. The patient is status post right colectomy in 2018 for colon carcinoma. He is also a liver transplant patient. POSTOPERATIVE DIAGNOSES: 1. Sigmoid diverticular disease. 2. Hemorrhoids. 3. No colitis seen. 4. Healthy anastomosis. Biopsy obtained of the transverse colon and sigmoid colon to rule out microscopic colitis. DESCRIPTION OF PROCEDURE: The patient was placed on his left lateral position and was given sedation by Anesthesia Department. A rectal exam was done before the scope was advanced into the rectum. No lesions felt on rectal exam. A [employer]ax video colonoscope was introduced into the rectum and advanced all the way to the . The mucosa appears normal throughout the colon. No colitis seen. The anastomotic area appeared healthy. Withdrawal of the scope from the transverse colon into the splenic flexure, descending colon, sigmoid colon, rectum, no lesions. He does have scattered sigmoid diverticulosis. Rectal hemorrhoids. Biopsies obtained from transverse colon and also from the sigmoid colon to rule out microscopic colitis. The stomach decompressed and the scope removed. Job ID: [id number]
[2019-01-30] MEDS: Tacrolimus 0.5 MG CAP PO SCH (08:31)
[2019-01-30] MEDS: Tacrolimus 1 MG CAP PO SCH (08:31)
[2019-01-30 11:47] VITALS: TEMP 98.6
--- NOTE | 2019-01-30 13:21 | PDOC.PN ---
- Subjective Encounter Start Date: 01/30/19 Encounter Start Time: 09:40 Subjective: no sob, had 1 loose stool this am no blood in it -: is amb in hallway - Objective Resuscitation Status - Order Detail: 01/27/19 20:25 Resuscitation Status Routine Resuscitation Status: FULL: Full Resuscitation MAR Reviewed: Yes Vital Signs & Weight: Vital Signs (12 hours) Temp Pulse Resp BP BP BP Pulse Ox 01/30/19 11:00 98.6 F 65 18 167/72 H 96 01/30/19 08:00 99 01/30/19 07:58 69 171/72 H 01/30/19 07:14 98.7 F 69 18 171/72 H 99 01/30/19 04:00 98.9 F 67 16 173/77 H 97 Weight Admit Weight 155 lb 4.8 oz Weight 153 lb 14.4 oz I&O: 01/29/19 01/30/19 01/31/19 06:59 06:59 06:59 Intake Total 360 480 Balance 360 480 Result Diagrams: 01/28/19 04:46 01/30/19 05:40 Additional Labs: Accuchecks 01/30/19 01/30/19 01/29/19 11:07 06:09 19:15 POC Glucose 118 H 78 116 H Phys Exam - Physical Examination HEENT: PERRLA, moist MMs Neck: no JVD, supple Respiratory: no wheezing, no rales Cardiovascular: RRR, no significant murmur Gastrointestinal: soft, non-tender, positive bowel sounds Musculoskeletal: pulses present left UE edema likely chronic with prior AV fistula Neurological: non-focal, moves all 4 limbs Psychiatric: normal affect, A&O x 3 Dx/Plan (1) CKD (chronic kidney disease) stage 4, GFR 15-29 ml/min Code(s): N18.4 - CHRONIC KIDNEY DISEASE, STAGE 4 (SEVERE) Status: Chronic (2) H/O malignant neoplasm of colon Code(s): Z85.038 - PERSONAL HISTORY OF MALIGNANT NEOPLASM OF LARGE INTESTINE Status: Chronic Comment: with prior right hemicolectomy and prox ilectomy 2017 (3) H/O kidney transplant Status: Acute (4) CAD (coronary artery disease) Code(s): I25.10 - ATHSCL HEART DISEASE OF [place] CORONARY ARTERY W/O ANG PCTRS Status: Chronic Qualifiers: Coronary Disease-Associated Artery/Lesion type: [place] artery [place] vs. transplanted heart: [place] heart Associated angina: without angina Qualified Code(s): I25.10 - Atherosclerotic heart disease of [place] coronary artery without angina pectoris (5) Anemia in chronic kidney disease Code(s): N18.9 - CHRONIC KIDNEY DISEASE, UNSPECIFIED; D63.1 - ANEMIA IN CHRONIC KIDNEY DISEASE Status: Chronic Qualifiers: Chronic kidney disease stage: stage 4 (severe) Qualified Code(s): N18.4 - Chronic kidney disease, stage 4 (severe); D63.1 - Anemia in chronic kidney disease (6) LARRY (acute kidney injury) Code(s): N17.9 - ACUTE KIDNEY FAILURE, UNSPECIFIED Status: Acute (7) Metabolic acidosis Code(s): E87.2 - ACIDOSIS Status: Acute Comment: sec to ckd/larry - Plan hemostable -: d/w patient and , colon biopsy awaited to r/o microscopic colitis -: stool studies are -ve for inf etiology -: low fiber, renal heart healthy diet -: may dc home, d/w , no levels of prograf/imuran to be checked * .
--- NOTE | 2019-01-30 13:36 | PQF ---
DATE: 01-30-19 ATTN: MAGALYS FRANCO Please exercise your independent, professional judgment in responding to the clarification form. Clinical indicators are provided on the bottom of this form for your review Please check appropriate box(s): Conflicting documentation was noted in the Medical Record, please clarify if patient is being treated/monitored for: [ ] ESRD, S/P RENAL TRANSPLANT [ x ] LARRY / CKD 4 [ ] Other diagnosis [ ] Unable to determine In addition, please specify: Present on Admission (POA): [ x] Yes [ ] No [ ] Unable to determine For continuity of documentation, please document condition throughout progress notes and discharge summary. Thank You. CLINICAL INDICATORS - SIGNS / SYMPTOMS/ LABS PN DR. FRANCO 01-29-19: LARRY / CKD [address] 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 RHODES 01-27-[address] RHODES 01-29-19: RENALLY DOSE ALL MEDICATIONS AND AVOID POTENTIALLY NEPHROTOXIC AGENTS (This form is maintained as a part of the permanent medical record) 2014 [employer], [employer]. All Rights Reserved NICOLASA [email or web address] Office: [phone] JUANJOSE
[2019-01-30 15:25] VITALS: BP 154/69
--- NOTE | 2019-01-30 19:54 | PRG ---
DATE OF SERVICE: 01/30/2019 SUBJECTIVE: The patient is seen and examined with no new complaint. Noted with the following vital signs. OBJECTIVE: VITAL SIGNS: Afebrile, temperature 98.6, pulse 60, respiratory rate of 18, O2 saturation 97%, and blood pressure 154/69. HEENT: Unremarkable. CARDIOVASCULAR: First and second heart sounds were heard. RESPIRATORY SYSTEM: Clear to auscultation. EXTREMITIES: No peripheral edema. SKIN: No new gross rash. LYMPHATICS: No peripheral lymphadenopathy. IMPRESSION: 1. Advanced renal disease in the context of allograft nephropathy. 2. Metabolic acidosis, which seems to be improved status post bicarb infusion and slowing down of the diarrhea. 3. Chronic diarrhea, query cause. PLAN: 1. Continue to avoid dairy products. 2. Continue renal supportive measures. 3. Close outpatient Nephrology followup strongly recommended. Job ID: [id number]
--- NOTE | 2019-01-31 15:58 | DIS ---
DATE OF ADMISSION: 01/28/2019 DATE OF DISCHARGE: 01/30/2019 DISCHARGE DISPOSITION: To home. PRIMARY DISCHARGE DIAGNOSES: Acute kidney injury on top of chronic kidney disease stage 4, weight loss with prior history of colon cancer, chronic anemia, metabolic acidosis due to kidney disease, history of renal transplant, prior history of right hemicolectomy in April of 2018 for colon cancer, and coronary artery disease. PROCEDURES DONE DURING HOSPITALIZATION: H and H 8 and 24, platelet count is 88, and MCV is 99. Discharge BUN and creatinine is 48 and 4.0. Serum bicarb is 27 on the day of discharge. Albumin is 3.5. Serum iron 67, TIBC 178, percent saturation iron is 38, and ferritin is 1381. Phosphorus 4.3, magnesium 1.8, and TSH 1.03. Liver enzymes within normal limits. Initial BUN and creatinine were 63 and 4.7 with bicarb of 16 on the day of admission. Potassium was 5.2 on the day of admission. Stool for C. diff, Campylobacter antigen, shiga toxin, and E. coli 0157, all were negative. Stool for rapid parasite including Giardia and Cryptosporidium were negative. Colonoscopy with biopsies were obtained on 01/29/[address] Madison. The findings were sigmoid diverticular disease, hemorrhoids were seen. No colitis was seen. Healthy anastomosis was seen. Biopsy was obtained from transverse colon and sigmoid colon to rule out microscopic colitis. DISCHARGE MEDICATIONS: 1. Atenolol 100 mg p.o. daily. 2. Azathioprine 50 mg p.o. daily. 3. Tacrolimus 2.5 mg p.o. twice daily. 4. Prednisone 5 mg p.o. daily. 5. Synthroid 50 mcg p.o. daily. 6. Epogen 10,000 units subcu once a month. 7. Marinol 5 mg p.o. daily p.r.n. 8. Vitamin B12 of 1000 mcg p.o. daily. 9. Calcitriol 0.25 mcg p.o. daily. 10. Questran 4 g p.o. daily. 11. Pepcid 20 mg daily. 12. Hydralazine 50 mg p.o. three times daily. ALLERGIES: TO CEPHALOSPORINS AND CIPROFLOXACIN. INPATIENT CONSULTS: Dr. Madison for Gastroenterology and Dr. Prasad for Nephrology. DISCHARGE PLAN: The patient to follow up with Dr. Dick, his bdc manager in 1 to 2 weeks. The patient needs to follow up with Dr. Prasad as advised and primary care physician in 1 week. BRIEF COURSE DURING HOSPITALIZATION: The patient initially was brought to emergency room on the with complaints of weight loss for 20 pounds with severe diarrhea for almost a month. As the patient was immunocompromised due to renal transplant and him being on Imuran and Prograf, the patient was admitted to medical floor. He has had stool studies done, which have been negative for any infectious etiology. He has had consultation with Dr. Madison for Gastroenterology and had colonoscopy done in view of prior history of colon cancer and right hemicolectomy. The findings of colonoscopy have been described above. Biopsies have been obtained to rule out microscopic colitis. The patient had acute kidney injury on top of chronic kidney disease stage 4 with history of renal transplant and was gently hydrated during his stay. His creatinine has remained stable. BUN has come back to his baseline. He was evaluated by Dr. Prasad as well. He needs to follow up with Dr. Dick, his bdc manager in 1 to 2 weeks. The patient still has 1 to 2 episodes of diarrhea. He was placed on Questran for the same. He is to remain hemodynamically stable, ambulating in the room, and tolerating solid food prior to discharge. Please see a [id number] documentation for the day of discharge on [employer]. Job ID: [id number]
== END 2019-01-30 15:56 | disposition home or self-care (01) | DRG 392 ==
LOC: ERS 12:47 → 2SW 15:40 → OBSVTOIN 01-28 17:12 → T4-A 01-28 20:50
PROVIDERS: ADMIT Internal Medicine; ATTEND Internal Medicine
PROC: 0DBN8ZX Excision of Sigmoid Colon, Via Natural or Artificial Opening Endoscopic, Diagnostic (ICD-10-PCS; principal; 2019-01-29)
PROC: 0DBL8ZX Excision of Transverse Colon, Via Natural or Artificial Opening Endoscopic, Diagnostic (ICD-10-PCS; 2019-01-29)
DX: K52.9 Noninfective gastroenteritis and colitis, unspecified (principal); E87.2 Acidosis; D61.818 Other pancytopenia; N18.4 Chronic kidney disease, stage 4 (severe); N17.9 Acute kidney failure, unspecified; T86.12 Kidney transplant failure; D50.9 Iron deficiency anemia, unspecified; I25.10 Atherosclerotic heart disease of native coronary artery without angina pectoris; E03.9 Hypothyroidism, unspecified; R63.4 Abnormal weight loss; D63.1 Anemia in chronic kidney disease; E11.22 Type 2 diabetes mellitus with diabetic chronic kidney disease; I12.9 Hypertensive chronic kidney disease with stage 1 through stage 4 chronic kidney disease, or unspecified chronic kidney disease; K57.30 Diverticulosis of large intestine without perforation or abscess without bleeding; K64.9 Unspecified hemorrhoids; Z85.038 Personal history of other malignant neoplasm of large intestine; Z85.46 Personal history of malignant neoplasm of prostate; Z90.49 Acquired absence of other specified parts of digestive tract; Z87.891 Personal history of nicotine dependence; Z88.1 Allergy status to other antibiotic agents; Z88.8 Allergy status to other drugs, medicaments and biological substances; Z90.79 Acquired absence of other genital organ(s); Z68.21 Body mass index [BMI] 21.0-21.9, adult; Y83.0 Surgical operation with transplant of whole organ as the cause of abnormal reaction of the patient, or of later complication, without mention of misadventure at the time of the procedure
CPT/HCPCS: 36415; 36416; 80053; 80069; 81003; 81015; 82728; 83036; 83540; 83550; 83690; 83735; 84100; 84443; 85025; 86850; 86900; 86901; 87045; 87046; 87081; 87328; 87329; 87449; 87899; J0360; J1650; J7070; J7500; J7507; J7512; Q5105

== ENCOUNTER 2019-02-27 07:57 | Day surgery (SDC) | payer MEDICARE, BC ==
[2019-02-27 08:17] LABS: Hemoglobin 9.6 g/dL (14.0-18.0)
[2019-02-27] MEDS ORDERED: EPOETIN ALFA-EPBX (ESRD) 10,000 UNIT/ML VIAL ONE ×2 (08:20→08:28)
[2019-02-27] MEDS ORDERED: EPOETIN ALFA-EPBX (ESRD) 10,000 UNIT/ML VIAL SC SCH (08:45)
[2019-02-27 09:06] VITALS: BP 144/93; TEMP 97.7
== END 2019-02-27 09:06 | disposition home or self-care (01) ==
LOC: ONC/OP 07:57
PROVIDERS: ATTEND Internal Medicine Nephrology
DX: N18.9 Chronic kidney disease, unspecified (principal); D63.1 Anemia in chronic kidney disease
CPT/HCPCS: 85014; 85018; 96372; Q5105

== ENCOUNTER 2019-03-27 08:05 | Day surgery (SDC) | payer MEDICARE, BC ==
[2019-03-27 09:15] LABS: Platelet Count 98 thou/uL (130-400)
[2019-03-27] MEDS: EPOETIN ALFA-EPBX (ESRD) 10,000 UNIT/ML VIAL ONE (09:44)
[2019-03-27 12:59] VITALS: BP 199/80; TEMP 97.7
== END 2019-03-27 15:33 | disposition home or self-care (01) ==
LOC: ONC/OP 08:05
PROVIDERS: ATTEND Internal Medicine Nephrology
DX: N18.9 Chronic kidney disease, unspecified (principal); D63.1 Anemia in chronic kidney disease; Z88.1 Allergy status to other antibiotic agents
CPT/HCPCS: 85014; 85018; 85049; 96372; Q5105

== ENCOUNTER 2019-04-20 09:03 | Inpatient (IN) | payer MEDICARE, BC ==
--- NOTE | 2019-04-20 10:23 | CT ---
CT Abdomen Pelvis WO Con History: Abdominal pain. Diarrhea. Comparison: CT abdomen pelvis 2013 Findings: Lung bases are clear. No pericardial effusion. Transplanted right pelvic kidney is without hydronephrosis. No atrophy of the transplant kidney. Left [place] kidney slightly atrophic multiple vascular calcifications and numerous hypodensities like ly cysts. Prior right colectomy with dilatation of the colon at the suture which may be neurogenic in nature. M ild diverticular disease sigmoid colon without active current formation. Prior prostatectomy with pelvic surgical clips. No pelvic adenopathy. Advanced facet arthropathy lower lumbar spine. Ankylosis of the SI joints. Calcification of the right greater trochanteric bursa. Impression: 1. No hydronephrosis of the right pelvic kidney. No acute inflammatory process. 2. Cholelithiasis without cholecystitis.
[2019-04-20 10:31] LABS: #Eosinphils 0.1 thou/uL (0.0-0.7); #Lymphocytes 0.7 thou/uL (1.20-3.40); #Monocytes 0.4 thou/uL (0.11-0.59); #Neutrophils 1.9 thou/uL (1.40-6.50); %Basophils 0.7 % (0.0-1.0); %Eosinophils 2.1 % (0.0-10.0); %Lymphocytes 21.4 % (21.0-51.0); %Monocytes 13.6 % (0.0-10.0); %Neutrophils 62.3 % (42.0-75.0); Hemoglobin 12.4 g/dL (14.0-18.0); Mean Corpuscular HGB CONC 30.9 g/dL (32.0-36.0); Mean Corpuscular Volume 97.2 fL (78.0-98.0); Mean Platelet Volume 11.3 fL (7.4-10.4); Platelet Count 119 thou/uL (130-400); RBC Distribution Width 13.5 % (11.5-14.5); Red Blood Cell (RBC) Count 4.13 mill/uL (4.70-6.10); White Blood Cell (WBC) Count 3.1 thou/uL (4.8-10.8)
[2019-04-20 10:54] LABS: ALT (SGPT) 11 U/L (8-55); AST (SGOT) 26 U/L (5-34); Albumin 4.6 g/dL (3.4-4.8); Alkaline Phosphatase 102 U/L (40-150); Anion Gap 14 mmol/L (10-20); BUN (Urea Nitrogen) 69 mg/dL (8.4-25.7); Bilirubin, Total 0.5 mg/dL (0.2-1.2); Calc. Creatinine Clearance 0 mL/min (70-130); Calcium 10.5 mg/dL (7.8-10.44); Carbon Dioxide 12 mmol/L (23-31); Chloride 114 mmol/L (98-107); Estimated GFR-MDRD 12; Globulin 3.6 g/dL (2.4-3.5); Glucose 104 mg/dL (83-110); Lipase 45 U/L (8-78); Potassium 6.1 mmol/L (3.5-5.1); Protein, Total 8.2 g/dL (5.8-8.1); Sodium 134 mmol/L (136-145)
[2019-04-20] MEDS ORDERED: Dextrose 50% Abboject 50 ML SYRINGE ONE (11:33)
[2019-04-20] MEDS ORDERED: Insulin Regular 300 UNITS/3 ML VIAL ONE (11:33)
[2019-04-20] MEDS ORDERED: Calcium Chloride 1 GM/10 ML Abboject SYRINGE ONE (11:33)
[2019-04-20] MEDS ORDERED: Sodium Bicarbonate 150 MEQ in Dextrose 5% in Water 1,000 ML IV SCH (11:45)
[2019-04-20] MEDS ORDERED: Sodium Chloride 0.45% 1,000 ML IV SCH (11:45)
[2019-04-20 12:48] LABS: Bilirubin Negative (Negative); Blood, Urine Trace (Negative); Clarity Clear (Clear); Glucose, Urine (Dipstick) Normal (Negative); Leukocyte Negative Leu/uL (Negative); Nitrite Negative (Negative); Protein, Urine (Dipstick) 300 mg/dL (Neg-Trace); RBC/HPF 0-3 HPF (0-3); Squamous Epithelial 0-3 HPF (0-3); Urobilinogen Normal mg/dL (Less than 2); WBC/HPF 0-3 HPF (0-3)
[2019-04-20 13:12] LABS: Bacteria/HPF None Seen HPF (None Seen)
[2019-04-20] MEDS ORDERED: hydrALAZINE 25 MG TAB ONE (16:47)
[2019-04-20] MEDS ORDERED: Sodium Chloride 0.9% 1,000 ML IV SCH (20:31)
[2019-04-20] MEDS ORDERED: Acetaminophen 325 MG TAB PO PRN (20:31)
[2019-04-20] MEDS ORDERED: Ondansetron ODT 4 MG TAB SL PRN (20:31)
[2019-04-20] MEDS ORDERED: Ondansetron PF 4 MG/2 ML Vial IVP PRN (20:31)
[2019-04-20] MEDS ORDERED: cloNIDine 0.1 MG TAB PO PRN (20:32)
[2019-04-20] MEDS ORDERED: Dextrose 5% in Water 1,000 ML IV PRN (20:33)
[2019-04-20] MEDS ORDERED: Insulin Regular 300 UNITS/3 ML VIAL SC PRN ×2 (20:33)
[2019-04-20] MEDS ORDERED: Dextrose 50% Abboject 50 ML SYRINGE IVP PRN (20:33)
[2019-04-20 20:38] VITALS: BMI 21.9
[2019-04-20] MEDS ORDERED: hydrALAZINE 20 MG/ML VIAL SLOW IVP SCH (23:30)
[2019-04-20] MEDS: Sodium Bicarbonate 150 MEQ in Dextrose 5% in Water 1,000 ML IV SCH (23:34)
[2019-04-21 07:09] LABS: Anion Gap 8 mmol/L (10-20); BUN (Urea Nitrogen) 54 mg/dL (8.4-25.7); BUN/Creatinine Ratio 11.97; Calc. Creatinine Clearance 15 mL/min (70-130); Carbon Dioxide 31 mmol/L (23-31); Chloride 100 mmol/L (98-107); Estimated GFR-MDRD 16; Glucose 556 mg/dL (83-110); Phosphorus 3.4 mg/dL (2.3-4.7); Sodium 135 mmol/L (136-145)
--- NOTE | 2019-04-21 08:08 | HP ---
CHIEF COMPLAINT: Persistent diarrhea, nausea, as well as weakness. HISTORY OF PRESENT ILLNESS: Mr. Marsh is a 73-year-old male with past medical history of diabetes, hypertension, colon cancer, status post resection and chronic kidney disease, started having diarrhea for 4-5 days ago . He did not have any fever, or abdominal pain. He has nausea, but no vomiting. The patient was able to eat, but he has lost about 10 pounds in one week He has been feeling very weak, that is the reason for this visit. The patient states that there is no blood in stool. The patient was evaluated here in the ER, found to have possible acute kidney injury, started on IV fluids. Blood pressure was elevated as well. He was given a dose of hydralazine, is being admitted for further evaluation. He did not have any chest pain. No fever, shortness of breath, or headache. PAST MEDICAL HISTORY: 1. Hypertension. 2. Diabetes mellitus. 3. Coronary artery disease, status post stent. 4. Hyperlipidemia. 5. Chronic diarrhea. 6. Colon cancer, status post resection. 7. Renal cell carcinoma,, status post nephrectomy. 8. End-stage renal disease, status post renal transplant. PAST SURGICAL HISTORY: Status post colon resection, status post nephrectomy. CURRENT MEDICATIONS: The patient is on; 1. Atenolol 100 mg daily. 2. Azathioprine 50 mg daily. 3. Calcitriol 0.25 mcg daily. 4. Vitamin B12. 5. Dronabinol 5 mg. 6. Procrit weekly. 7. Pepcid 20 mg b.i.d. 8. Levothyroxine 50 mcg daily. 9. Prednisone 5 mg daily. 10. Sodium bicarbonate 650 mg b.i.d. 11. asa 81 mg daily 12. Tacrolimus 2.5 mg b.i.d. ALLERGIES: CECLOR, CEFTIN, CEPHALOSPORINS. FAMILY HISTORY: Nothing contributory. SOCIAL HISTORY: The patient lives with family. no smoking,no drinking alcohol. REVIEW OF SYSTEMS: unremarkable except diarrhoea.. PHYSICAL EXAMINATION: VITAL SIGNS: Temperature 98, pulse 56, respiration 20, blood pressure 170/ 100. HEENT: Head is normocephalic and atraumatic. Pupils are equal and reactive. Nasopharynx is pale and dry. Hard and soft palate, no lesions. SKIN: Turgor decreased. NECK: Supple. No JVD. LUNGS: Bilateral air entry. No rales. No rhonchi. HEART: SI and S2 regular. ABDOMEN: Soft, mildly distended and tender diffusely. No guarding. No rigidity. Normal bowel sounds present. RECTAL: Deferred. NEUROLOGIC: No focal deficits. LABORATORY DATA: CBC shows WBC 3.1, hemoglobin 12, hematocrit 40, platelets 119. Metabolic panel; sodium 134, potassium 6.1, chloride 114, C02 is 12, . CT scan of the abdomen unremarkable except for cholelithiasis without cholecystitis. ASSESSMENT: 1. Severe persistent diarrhea. 2. Weakness secondary to severe persistent diarrhea, acute kidney injury. 3. End-stage renal disease, status post renal transplant. 4. Uncontrolled hypertension. 5. History of colon cancer, status post right hemicolectomy. 6. Hemochromatosis. 7. Hypothyroidism. PLAN: 1. Vital signs q.4 hours. 2. Activity as tolerated. 3. Allergies, cephalosporin. 4. IV fluids, half normal at 80 mL/h. 5. Diet: Renal ADA. 6. Continue home medications. 7. GI consult. 8. Stool studies. Job ID: [id number] [facility]
[2019-04-21] MEDS: Calcitriol 0.25 MCG CAP PO SCH (08:52)
[2019-04-21] MEDS: predniSONE 5 MG TAB PO SCH (08:52)
[2019-04-21] MEDS: hydrALAZINE 25 MG TAB PO SCH ×3 (08:52→21:31)
[2019-04-21] MEDS ORDERED: Tacrolimus 1 MG CAP PO SCH ×2 (09:00→21:00)
[2019-04-21] MEDS ORDERED: Cholestyramine/Aspartame 4 gm Packet PO SCH (09:00)
--- NOTE | 2019-04-21 09:01 | CON ---
DATE OF CONSULTATION: CONSULTING PHYSICIAN: Osmar Martines MD REQUESTING PHYSICIAN: ER physician. REASON FOR CONSULTATION: Advanced renal failure in a patient with kidney transplant as well as severe hyperkalemia. IMPRESSION: 1. Advanced renal failure, query acute on chronic allograft nephropathy versus progression of his chronic allograft nephropathy. 2. Hyperkalemia related to problem #1. 3. Metabolic acidosis, likely due to diarrhea compounded by reduced GFR. 4. Dehydration. PLAN: 1. We will recommend bicarbonate infusion. We will discontinue normal saline to avoid worsening of the metabolic acidosis due to re-expansion acidosis. We will rather use a bicarbonate infusion, which will also help to address the hyperkalemia in this patient. 2. Medical treatment for hyperkalemia with insulin and glucose plus or minus calcium carbonate. 3. If the patient's renal function does not improve, renal replacement therapy (hemodialysis medically indicated). 4. Renally dose all medications and avoid potentially nephrotoxic agents. 5. Adjust antihypertensive medications to optimize hemodynamics. HISTORY OF PRESENT ILLNESS: History is that of a 73-year-old gentleman, status post renal transplant, who suffered significant allograft nephropathy has been dealing with advanced kidney disease. The patient presented with history of nausea, vomiting, and diarrhea. A clinical evaluation in the ER revealed evidence of renal dysfunction with worsening metabolic acidosis and hyperkalemia. SOCIAL HISTORY: . REVIEW OF SYSTEMS: As documented in the body of the history. All the other systems were reviewed and found not to be significantly related to presenting illness. PHYSICAL EXAMINATION: GENERAL: The patient was found to be in respiratory distress. CARDIOVASCULAR SYSTEM: First and second heart sounds were heard. RESPIRATORY SYSTEM: Clear to auscultation. DIGESTIVE SYSTEM: Revealed a benign abdomen. EXTREMITIES: No peripheral edema. SKIN: No new gross rash. LYMPHATICS: No peripheral lymphadenopathy. SUMMARY: A 73-year-old gentleman with significant allograft nephropathy, who presented here with nausea, vomiting, and diarrhea, noted to be severely hyperkalemic. I am afraid if his renal function based on allograft nephropathy in this patient, the patient might need to resume dialysis. We will go ahead and check the Prograf level in this patient also. Job ID: [id number]
[2019-04-21] MEDS: Sodium Chloride 0.45% 1,000 ML IV SCH ×2 (11:05→23:36)
[2019-04-21] MEDS: Sodium Bicarbonate 150 MEQ in Dextrose 5% in Water 1,000 ML IV SCH (11:08)
[2019-04-21] MEDS ORDERED: Ondansetron ODT 4 MG TAB PO PRN (18:05)
[2019-04-21] MEDS ORDERED: EPOETIN ALFA-EPBX (ESRD) 10,000 UNIT/ML VIAL SC SCH (18:15)
[2019-04-21] MEDS ORDERED: Prevnar 13-Val Conj/PF 0.5 ML SYRINGE IM ONE (21:00)
[2019-04-21] MEDS ORDERED: hydrALAZINE 25 MG TAB PO SCH (21:00)
[2019-04-21] MEDS: Cholestyramine/Aspartame 4 gm Packet PO SCH (21:33)
[2019-04-21] MEDS: Tacrolimus 1 MG CAP PO SCH (21:33)
[2019-04-22] MEDS: hydrALAZINE 20 MG/ML VIAL SLOW IVP PRN ×2 (02:12→11:57)
[2019-04-22] MEDS: Levothyroxine Sodium 50 MCG TAB PO SCH (05:11)
[2019-04-22 05:47] LABS: #Eosinphils 0.1 thou/uL (0.0-0.7); #Lymphocytes 0.6 thou/uL (1.20-3.40); #Monocytes 0.4 thou/uL (0.11-0.59); #Neutrophils 2.4 thou/uL (1.40-6.50); %Basophils 0.3 % (0.0-1.0); %Eosinophils 1.8 % (0.0-10.0); %Lymphocytes 18.5 % (21.0-51.0); %Monocytes 10.8 % (0.0-10.0); %Neutrophils 68.7 % (42.0-75.0); Hemoglobin 9.8 g/dL (14.0-18.0); Mean Corpuscular HGB CONC 32.1 g/dL (32.0-36.0); Mean Corpuscular Hemoglobin 30.7 pg (27.0-31.0); Mean Corpuscular Volume 95.8 fL (78.0-98.0); Mean Platelet Volume 9.5 fL (7.4-10.4); Platelet Count 115 thou/uL (130-400); RBC Distribution Width 13.1 % (11.5-14.5); Red Blood Cell (RBC) Count 3.19 mill/uL (4.70-6.10); White Blood Cell (WBC) Count 3.4 thou/uL (4.8-10.8)
[2019-04-22 06:13] LABS: ALT (SGPT) 7 U/L (8-55); AST (SGOT) 13 U/L (5-34); Albumin 3.5 g/dL (3.4-4.8); Alkaline Phosphatase 81 U/L (40-150); Anion Gap 10 mmol/L (10-20); BUN (Urea Nitrogen) 60 mg/dL (8.4-25.7); BUN/Creatinine Ratio 12.07; Bilirubin, Total 0.5 mg/dL (0.2-1.2); Calc. Creatinine Clearance 13 mL/min (70-130); Calcium 9.7 mg/dL (7.8-10.44); Carbon Dioxide 20 mmol/L (23-31); Chloride 111 mmol/L (98-107); Estimated GFR-MDRD 14; Globulin 2.5 g/dL (2.4-3.5); Glucose 85 mg/dL (83-110); Phosphorus 3.7 mg/dL (2.3-4.7); Potassium 4.6 mmol/L (3.5-5.1); Sodium 136 mmol/L (136-145)
[2019-04-22] MEDS: azaTHIOprine 50 MG TAB PO SCH (08:47)
[2019-04-22] MEDS: predniSONE 5 MG TAB PO SCH (08:47)
[2019-04-22] MEDS: hydrALAZINE 25 MG TAB PO SCH ×3 (08:47→21:13)
[2019-04-22] MEDS: Famotidine 20 MG TAB PO SCH (08:47)
[2019-04-22] MEDS: Calcitriol 0.25 MCG CAP PO SCH (08:47)
[2019-04-22] MEDS: Tacrolimus 1 MG CAP PO SCH ×2 (08:48→21:12)
[2019-04-22] MEDS: Atenolol 50 MG TAB PO SCH (08:48)
[2019-04-22] MEDS: Cyanocobalamin (Vitamin B-12) 1,000 MCG TAB PO SCH (08:50)
[2019-04-22] MEDS ORDERED: Calcitriol 0.25 MCG CAP PO SCH (09:00)
[2019-04-22] MEDS ORDERED: predniSONE 5 MG TAB PO SCH (09:00)
[2019-04-22] MEDS ORDERED: Cholestyramine/Aspartame 4 gm Packet PO SCH (09:00)
[2019-04-22] MEDS ORDERED: Tacrolimus 1 MG CAP PO SCH (09:00)
--- NOTE | 2019-04-22 09:57 | CON ---
DATE OF CONSULTATION: 04/21/2019 REASON FOR CONSULTATION: Acute diarrhea, volume depletion, worsening kidney failure. HISTORY OF PRESENT ILLNESS: Mr. Martínez is a very pleasant 73-year-old male, who is known to me from before. The patient has had multiple colon polyps removed in the past. He had a colonoscopy and was found to have when he was in [place] last year. He underwent right colectomy. He has done well after surgery. The patient was hospitalized here in January of 2019 because of acute diarrhea which lasted for several weeks. He also lost about 20 pounds. He was hospitalized and underwent stool testing and it was negative. He had a colonoscopy, which revealed no pathology. The patient was empirically placed on Questran 1 packet twice a day. He saw me about 3 weeks ago and was doing very well. He was gaining weight. He was eating well. He developed some acute diarrhea again this past Saturday. He felt weak and lethargic and also lost about 10 pounds. He was brought to the ER by the family yesterday Yesterday, the lab shows sodium 134, potassium 6.1 BUN 69, creatinine 5.8, carbon dioxide 12, calcium 10.5. Today, his numbers are getting better His BUN dropped down to 54, creatinine to 4.51. His glucose is very high. The patient had one watery stool yesterday and also received studies came back negative for Campylobacter, also C diff is pending. The patient is actually feeling better today. No abdominal pain, no nausea or vomiting. . MEDICAL ILLNESSES: 1. Colon cancer, status post surgery in [place] in 2018. 2. Hypertension. 3. Diabetes mellitus. 4. . 5. He has history of hemochromatosis before and was getting periodic phlebotomies. SOCIAL HISTORY: The patient is . Does not smoke or drink alcohol. MEDICATIONS: 1. Atenolol. 2. Azathioprine. 3. Calcitriol. 4. Vitamin B12. 5. Dronabinol. 6. Procrit. 7. Pepcid. 8. Levothyroxine 50 mcg daily. 9. Prednisone 5 mg daily. 10. Sodium bicarbonate. ALLERGIES: CELCOR, CEFTIN, CEPHALOSPORINS. REVIEW OF SYSTEMS: Reveals generalized weakness, fatigue acute diarrhea, history of weight loss PHYSICAL EXAMINATION: GENERAL: He is awake, alert, and communicative. He is oriented to time, place, and person. VITAL SIGNS: Afebrile. Pulse 67, respirations 18, blood pressure 187/64. NECK: Supple. No adenitis or thyromegaly. CARDIOVASCULAR SYSTEM: First and second heart sounds. ABDOMEN: Soft. Abdomen is nondistended No organomegaly. EXTREMITIES: Reveal no edema. LABORATORY DATA: Abdomen CAT scan shows no acute findings except for Lab data from today; sodium 135, potassium 4, chloride 100, bicarb 31, BUN 54, creatinine 4.51 stool for c difficile, Campylobacter cultures all negative. IMPRESSION: Acute on chronic diarrhea. He was doing well on Questran twice a day, but apparently he only takes Questran once a day. He has had a previous colonoscopy last admission that showed negative. He has had multiple stool studies as an outpatient also which revealed no pathology. The patient has had right colectomy malabsorption. He responds to Questran showed no pathology. RECOMMENDATION: Can increase Questran to 4 g p.o. twice a day. The diarrhea gets better, continue same treatment. If diarrhea gets worse I will follow along with the patient while in hospital. Job ID: [id number]
[2019-04-22] MEDS: Cholestyramine/Aspartame 4 gm Packet PO SCH ×2 (10:53→21:14)
[2019-04-22] MEDS: Sodium Chloride 0.45% 1,000 ML IV SCH (14:48)
--- NOTE | 2019-04-22 15:07 | PRG ---
DATE OF SERVICE: 04/22/2019 SUBJECTIVE: The patient was seen and examined today. Continues to maintain sustained clinical improvement, noted with following vital signs; OBJECTIVE: VITAL SIGNS: Afebrile, temperature 97.6, pulse 63, blood pressure 194/80 with a respiratory rate of 18, and O2 saturation of 100%. HEENT: Unremarkable. Moist oral mucosa. No conjunctival injection or icterus. NECK: Supple. CARDIOVASCULAR SYSTEM: First and second heart sounds were heard. RESPIRATORY SYSTEM: Clear to auscultation. DIGESTIVE SYSTEM: Revealed a benign abdomen. Positive bowel sounds. EXTREMITIES: No peripheral edema. SKIN: No new gross rash. LYMPHATICS: No peripheral lymphadenopathy. LABORATORY INVESTIGATION: Showed a creatinine of 4.97 with BUN of 16 and bicarb of 20. Blood sugar down to 142. CBC showed hemoglobin of 9.8, white count 3.4, platelets 115,000. 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 2. Metabolic acidosis. 3. Hyperkalemia. 4. Chronic diarrhea which seems to have improved, status post resumption of cholestyramine. 5. Anemia of chronic kidney disease. PLAN: 1. The patient to continue with current renal supportive measures; however, we discontinue the current IV fluid. 2. The patient to receive his monthly dose of Procrit. 3. Continue to avoid potentially nephrotoxic agents and renally dose all medications for low GFR. 4. Further management will be dependent on the clinical course. From all indication, if the patient continues to maintain sustained clinical improvement, discharge might be possible within the next 24 hours. Job ID: [id number]
--- NOTE | 2019-04-22 15:12 | PRG ---
DATE OF SERVICE: 04/21/2019 SUBJECTIVE: The patient was seen and examined, seems to be feeling much better. Noted with the following vital signs. OBJECTIVE: VITAL SIGNS: Afebrile, temperature 98, pulse 64, respiratory rate of 20, O2 saturation of 99% on room air with blood pressure of 176/71. HEENT: Unremarkable. Moist oral mucosa. No conjunctival injection or icterus. NECK: Supple. CARDIOVASCULAR: First and second sounds were heard. RESPIRATORY: Clear to auscultation. DIGESTIVE SYSTEM: Revealed a benign abdomen with positive bowel sounds. EXTREMITIES: No peripheral edema. SKIN: No new gross rash. LYMPHATICS: No peripheral lymphadenopathy. LABORATORY INVESTIGATION: Showed a potassium that has gone down to 4.0, bicarb of 31, BUN of 54 with a creatinine of 4.51, glucose of 556. PTH of 377.5. IMPRESSION: 1. [id number] kidney disease in the context of allograft nephropathy due to problem #2. 2. Diarrhea resulting in some prerenal state. 3. Metabolic acidosis, which has resolved. 4. Hyperkalemia, which has resolved. PLAN: 1. The patient's bicarb infusion to be discontinued at this point. 2. We will switch over to half-normal saline. 3. Continue to adjust antihypertensive medications to optimize hemodynamics. 4. Renally dose all medications and avoid potentially nephrotoxic agents. 5. At this juncture, there is no emergent indication for renal replacement therapy (hemodialysis); however, this modality of treatment is still around the corner given the advanced renal insufficiency in this patient. We will continue to follow with you. Job ID: [id number]
--- NOTE | 2019-04-22 15:26 | PRG ---
DATE OF SERVICE: 04/22/2019 SUBJECTIVE: This is a 73-year-old male admitted to hospital with severe diarrhea, weight loss of 10 pounds. Interestingly, he had one stool on admission, which was watery. Next was formed. He had one stool yesterday. The stool was again formed. He has no stool today. He is tolerating diet. No abdominal pain. No nausea. No vomiting. He is on IV fluids. He offers no complaints. Stool studies including C. difficile, Cryptosporidium, ova and parasite, and culture have been negative. The same thing happened 2 months ago. Again, the cultures were negative at that time. After he was placed on Questran, his symptoms got better. He is back on Questran 4 g p.o. twice a day. He offers no complaints. OBJECTIVE: VITAL SIGNS: Afebrile, pulse 63, blood pressure 177/68. HEENT: Conjunctivae clear. CARDIOVASCULAR: First and second heart sounds heard. LUNGS: Clear to auscultation. ABDOMEN: Soft. No organomegaly. No tenderness. No masses. CLINICAL IMPRESSION: Intermittent diarrhea with negative stool studies. He has had a right colon resection last year. It is possible that could have been bile acid malabsorption diarrhea. Other possibility, he could have ischemic bowel disease. However, he has no abdominal pain whatsoever, and again, the diarrhea stopped . RECOMMENDATIONS: 1. Continue Questran. 2. Observe another day and see how he does. If he does well, hopefully can be sent to home in the next 24 to 48 hours. Job ID: [id number]
[2019-04-23] MEDS: hydrALAZINE 20 MG/ML VIAL SLOW IVP PRN (00:11)
[2019-04-23] MEDS: Levothyroxine Sodium 50 MCG TAB PO SCH (05:19)
[2019-04-23 06:21] LABS: Albumin 3.4 g/dL (3.4-4.8); Anion Gap 12 mmol/L (10-20); BUN (Urea Nitrogen) 56 mg/dL (8.4-25.7); BUN/Creatinine Ratio 11.91; Calc. Creatinine Clearance 14 mL/min (70-130); Calcium 9.8 mg/dL (7.8-10.44); Carbon Dioxide 18 mmol/L (23-31); Chloride 111 mmol/L (98-107); Estimated GFR-MDRD 15; Glucose 75 mg/dL (83-110); Potassium 4.7 mmol/L (3.5-5.1); Sodium 136 mmol/L (136-145)
[2019-04-23] MEDS: Cholestyramine/Aspartame 4 gm Packet PO SCH ×2 (08:30→21:00)
[2019-04-23] MEDS: Calcitriol 0.25 MCG CAP PO SCH (08:31)
[2019-04-23] MEDS: Tacrolimus 1 MG CAP PO SCH ×2 (08:31→20:51)
[2019-04-23] MEDS: predniSONE 5 MG TAB PO SCH (08:31)
[2019-04-23] MEDS: azaTHIOprine 50 MG TAB PO SCH (08:31)
[2019-04-23] MEDS: Cyanocobalamin (Vitamin B-12) 1,000 MCG TAB PO SCH (08:32)
[2019-04-23] MEDS: hydrALAZINE 25 MG TAB PO SCH ×3 (08:32→20:50)
[2019-04-23] MEDS: Famotidine 20 MG TAB PO SCH (08:32)
[2019-04-23] MEDS: Atenolol 50 MG TAB PO SCH (08:35)
[2019-04-23 17:09] LABS: Tacrolimus 3.8 ng/mL (2.0-20.0)
--- NOTE | 2019-04-23 20:23 | PRG ---
DATE OF SERVICE: 04/23/2019 SUBJECTIVE: The patient is seen and examined with no new complaints, very eager to go home, noted with the following vital signs. OBJECTIVE: VITAL SIGNS: Afebrile. Temperature 98.5, pulse 65, respiratory rate of 18, O2 saturations are 99%, blood pressure 187/72 to 210/85. HEENT: Unremarkable. CARDIOVASCULAR: First and second heart sounds were heard. RESPIRATORY SYSTEM: Clear to auscultation. DIGESTIVE SYSTEM: Revealed a benign abdomen with positive bowel sounds. EXTREMITIES: No peripheral edema. SKIN: No new gross rash. LYMPHATICS: No peripheral lymphadenopathy. LABORATORY INVESTIGATION: Showed a creatinine of 4.7 with BUN of 56 and bicarb of 18. IMPRESSION: 1. Severe allograft nephropathy. 2. Metabolic acidosis. 3. Hypertension, suboptimally controlled. 4. Chronic diarrhea, which seems to have resolved. 5. Hyperkalemia, resolved. PLAN: 1. The patient's blood pressure medications to be adjusted to optimize the hemodynamics. 2. We will start this patient on supplemental sodium bicarbonate. 3. Further management will be dependent on the clinical course. Once the blood pressure is improved, the patient will be due for discharge from the renal standpoint with a very close outpatient Nephrology followup. Job ID: [id number]
[2019-04-23] MEDS: Sodium Bicarbonate Tab 325 MG TAB PO SCH (20:51)
[2019-04-24] MEDS: hydrALAZINE 20 MG/ML VIAL SLOW IVP PRN (00:15)
[2019-04-24] MEDS: Levothyroxine Sodium 50 MCG TAB PO SCH (05:38)
[2019-04-24 06:15] LABS: Albumin 3.4 g/dL (3.4-4.8); Anion Gap 11 mmol/L (10-20); BUN (Urea Nitrogen) 53 mg/dL (8.4-25.7); BUN/Creatinine Ratio 10.97; Calc. Creatinine Clearance 14 mL/min (70-130); Calcium 9.3 mg/dL (7.8-10.44); Carbon Dioxide 18 mmol/L (23-31); Chloride 110 mmol/L (98-107); Estimated GFR-MDRD 15; Glucose 121 mg/dL (83-110); Phosphorus 3.8 mg/dL (2.3-4.7); Potassium 4.5 mmol/L (3.5-5.1); Sodium 134 mmol/L (136-145)
[2019-04-24] MEDS: Tacrolimus 1 MG CAP PO SCH (08:28)
[2019-04-24] MEDS: Sodium Bicarbonate Tab 325 MG TAB PO SCH (08:28)
[2019-04-24] MEDS: Cholestyramine/Aspartame 4 gm Packet PO SCH (08:28)
[2019-04-24] MEDS: Calcitriol 0.25 MCG CAP PO SCH (08:28)
[2019-04-24] MEDS: hydrALAZINE 25 MG TAB PO SCH (08:29)
[2019-04-24] MEDS: Atenolol 50 MG TAB PO SCH (08:29)
[2019-04-24] MEDS: azaTHIOprine 50 MG TAB PO SCH (08:29)
[2019-04-24] MEDS: predniSONE 5 MG TAB PO SCH (08:29)
[2019-04-24] MEDS: Cyanocobalamin (Vitamin B-12) 1,000 MCG TAB PO SCH (08:30)
[2019-04-24] MEDS: Famotidine 20 MG TAB PO SCH (08:30)
[2019-04-24 12:25] VITALS: BP 181/69; TEMP 98
--- NOTE | 2019-04-24 12:38 | PRG ---
DATE OF SERVICE: 04/23/2019 SUBJECTIVE: This is a 73-year-old male, hospitalized with severe diarrhea, weight loss. Presently, his diarrhea symptoms got better. He is having only one stool per day, stool is formed. He is eating well. Stool studies negative for any pathology. He is on Questran 4 g twice a day. His kidney function is also getting better. Lab data today shows BUN 56, creatinine 4.7. Lytes are normal. OBJECTIVE:: VITAL SIGNS: Afebrile, . HEENT: Conjunctivae clear. CARDIOVASCULAR: First and second heart sounds heard. LUNGS: Clear to auscultation. ABDOMEN: Soft. No organomegaly. No tenderness. No masses. CLINICAL IMPRESSION:: . RECOMMENDATIONS:: 1. Continue Questran. 2. If he does well, hopefully can be sent to home in the next 24 hours. Job ID: [id number]
--- NOTE | 2019-04-26 18:41 | PRG ---
DATE OF SERVICE: SUBJECTIVE: The patient noted with the following vital signs. OBJECTIVE: VITAL SIGNS: Afebrile. Temperature 98, pulse 61, respiratory rate of 18, O2 saturations are 99% with a blood pressure of 181/69. HEENT: Unremarkable. CARDIOVASCULAR SYSTEM: First and second heart sounds were heard. RESPIRATORY SYSTEM: Clear to auscultation. DIGESTIVE SYSTEM: Revealed a benign abdomen with positive bowel sounds. EXTREMITIES: No peripheral edema. SKIN: No new gross rash. LYMPHATICS: No peripheral lymphadenopathy. LABORATORY INVESTIGATION: Showed a creatinine of 4.83 with BUN of 53, bicarb of 18. IMPRESSION: 1. Severe allograft nephropathy. 2. Dehydration, improved, status post rehydration. 3. Diarrhea, . 4. Metabolic acidosis. 5. Hyperkalemia, resolved. PLAN: 1. Close outpatient Nephrology followup. 2. The patient seems to be very close to renal replacement therapy (hemodialysis). 3. We will consider sodium bicarb supplementation. 4. Further management will be dependent on the clinical course. 5. Continue to monitor the hemodynamics and adjust blood pressure accordingly. Job ID: [id number]
--- NOTE | 2019-04-27 12:14 | PRG ---
DATE OF SERVICE: 04/24/2019 SUBJECTIVE: The patient was seen and noted with the following vital signs. OBJECTIVE: VITAL SIGNS: Afebrile, temperature 98, pulse 61, respiratory rate 18, O2 saturations 99%, blood pressure 181/69. HEENT: Unremarkable. CARDIOVASCULAR: First and second heart sounds were heard. RESPIRATORY: Clear to auscultation. DIGESTIVE SYSTEM: Revealed a benign abdomen with positive bowel sounds. EXTREMITIES: No peripheral edema. SKIN: No new gross rash. LYMPHATICS: No peripheral lymphadenopathy. IMPRESSION: 1. Acute on chronic kidney disease in the context of acute on chronic allograft nephropathy due to increased GI loss . 2. End-stage renal disease, status post renal transplant. 3. Chronic allograft nephropathy. 4. Hypertension, suboptimally controlled. PLAN: 1. From the renal standpoint, the patient to follow up with me as an outpatient. 2. We will continue to adjust antihypertensive medications to optimize the hemodynamics. 3. Anemia management will be with erythropoiesis stimulating agent. The patient is already scheduled . 4. Further management will be dependent on the clinical course. Job ID: [id number]
== END 2019-04-24 12:53 | disposition home or self-care (01) | DRG 699 ==
LOC: ERS 09:03 → ERHOLD 12:22 → T4-B 20:01
PROVIDERS: ADMIT Internal Medicine; ATTEND Internal Medicine
DX: T86.12 Kidney transplant failure (principal); N17.9 Acute kidney failure, unspecified; E87.2 Acidosis; E87.5 Hyperkalemia; E86.9 Volume depletion, unspecified; E86.0 Dehydration; E11.22 Type 2 diabetes mellitus with diabetic chronic kidney disease; E11.21 Type 2 diabetes mellitus with diabetic nephropathy; D63.1 Anemia in chronic kidney disease; E83.119 Hemochromatosis, unspecified; E03.9 Hypothyroidism, unspecified; K52.9 Noninfective gastroenteritis and colitis, unspecified; I12.9 Hypertensive chronic kidney disease with stage 1 through stage 4 chronic kidney disease, or unspecified chronic kidney disease; N18.9 Chronic kidney disease, unspecified; Y83.8 Other surgical procedures as the cause of abnormal reaction of the patient, or of later complication, without mention of misadventure at the time of the procedure; I25.10 Atherosclerotic heart disease of native coronary artery without angina pectoris; Z99.2 Dependence on renal dialysis; Z79.4 Long term (current) use of insulin; Z85.038 Personal history of other malignant neoplasm of large intestine; Z90.49 Acquired absence of other specified parts of digestive tract; Z88.8 Allergy status to other drugs, medicaments and biological substances; Z86.010 Personal history of colon polyps; Z85.528 Personal history of other malignant neoplasm of kidney
CPT/HCPCS: 36415; 36416; 74176; 80053; 80069; 80197; 81003; 81015; 83690; 83970; 85025; 87045; 87046; 87324; 87328; 87329; 87427; 87449; 96361; 96365; 96375; J0360; J1815; J7070; J7500; J7507; J7512; Q5105

== ENCOUNTER 2019-05-29 08:05 | Day surgery (SDC) | payer MEDICARE, BC ==
[2019-05-29 08:24] LABS: #Lymphocytes 0.6 thou/uL (1.20-3.40); #Monocytes 0.4 thou/uL (0.11-0.59); #Neutrophils 2.6 thou/uL (1.40-6.50); %Basophils 0.3 % (0.0-1.0); %Eosinophils 1.4 % (0.0-10.0); %Lymphocytes 16.5 % (21.0-51.0); %Monocytes 10.7 % (0.0-10.0); %Neutrophils 71.1 % (42.0-75.0); Hemoglobin 9.7 g/dL (14.0-18.0); Mean Corpuscular HGB CONC 31.2 g/dL (32.0-36.0); Mean Corpuscular Hemoglobin 30.9 pg (27.0-31.0); Mean Corpuscular Volume 99.1 fL (78.0-98.0); Mean Platelet Volume 8.8 fL (7.4-10.4); Platelet Count 103 thou/uL (130-400); RBC Distribution Width 13.7 % (11.5-14.5); Red Blood Cell (RBC) Count 3.13 mill/uL (4.70-6.10); White Blood Cell (WBC) Count 3.6 thou/uL (4.8-10.8)
[2019-05-29] MEDS: EPOETIN ALFA-EPBX (ESRD) 10,000 UNIT/ML VIAL ONE ×2 (08:31→08:32)
[2019-05-29 10:22] VITALS: BP 162/72; TEMP 98.4
== END 2019-05-29 10:22 | disposition home or self-care (01) ==
LOC: ONC/OP 08:05
PROVIDERS: ATTEND Internal Medicine Nephrology
DX: N18.9 Chronic kidney disease, unspecified (principal); D63.1 Anemia in chronic kidney disease; Z88.1 Allergy status to other antibiotic agents
CPT/HCPCS: 85025; 96372; Q5105

== ENCOUNTER 2019-06-25 08:18 | Day surgery (SDC) | payer MEDICARE, BC ==
[2019-06-25 08:40] LABS: Hemoglobin 10.1 g/dL (14.0-18.0); Platelet Count 97 thou/uL (130-400)
[2019-06-25 08:51] VITALS: TEMP 97.6
[2019-06-25] MEDS: EPOETIN ALFA-EPBX (ESRD) 10,000 UNIT/ML VIAL ONE ×2 (08:54→08:55)
[2019-06-25] MEDS ORDERED: EPOETIN ALFA-EPBX (ESRD) 10,000 UNIT/ML VIAL SC SCH (09:30)
== END 2019-06-25 09:05 | disposition home or self-care (01) ==
LOC: ONC/OP 08:18
PROVIDERS: ATTEND Internal Medicine Nephrology
DX: N18.9 Chronic kidney disease, unspecified (principal); D63.1 Anemia in chronic kidney disease; Z88.1 Allergy status to other antibiotic agents
CPT/HCPCS: 85014; 85018; 85049; 96372; Q5105

== ENCOUNTER 2019-07-24 08:11 | Day surgery (SDC) | payer MEDICARE, BC ==
[2019-07-24 08:50] LABS: Hemoglobin 8.7 g/dL (14.0-18.0)
[2019-07-24] MEDS: EPOETIN ALFA-EPBX (ESRD) 10,000 UNIT/ML VIAL ONE (08:58)
[2019-07-24 10:38] VITALS: BP 169/74; TEMP 98.5
[2019-08-07] MEDS ORDERED: EPOETIN ALFA-EPBX (ESRD) 10,000 UNIT/ML VIAL SC SCH (09:00)
== END 2019-07-24 10:41 | disposition home or self-care (01) ==
LOC: ONC/OP 08:11
PROVIDERS: ATTEND Internal Medicine Nephrology
DX: N18.9 Chronic kidney disease, unspecified (principal); D63.1 Anemia in chronic kidney disease; Z88.1 Allergy status to other antibiotic agents
CPT/HCPCS: 36415; 85014; 85018; 96372; Q5105

== ENCOUNTER 2019-08-21 08:13 | Day surgery (SDC) | payer MEDICARE, BC ==
[2019-08-21 08:40] LABS: Hemoglobin 7.7 g/dL (14.0-18.0)
[2019-08-21] MEDS: EPOETIN ALFA-EPBX (ESRD) 10,000 UNIT/ML VIAL ONE (09:17)
[2019-08-21] MEDS ORDERED: EPOETIN ALFA-EPBX (ESRD) 10,000 UNIT/ML VIAL SC SCH (09:30)
[2019-08-21] MEDS ORDERED: EPOETIN ALFA-EPBX (ESRD) 40,000 UNIT/ML VIAL ONE (09:36)
[2019-08-21 10:52] VITALS: BP 154/70; TEMP 97.6
== END 2019-08-21 09:50 | disposition home or self-care (01) ==
LOC: ONC/OP 08:13
PROVIDERS: ATTEND Internal Medicine Nephrology
DX: D64.9 Anemia, unspecified (principal)
CPT/HCPCS: 85014; 85018; 96372; Q5105

== ENCOUNTER 2019-08-31 09:31 | Observation (INO) | payer MEDICARE, BC ==
[2019-08-31 11:02] LABS: ALT (SGPT) 16 U/L (8-55); AST (SGOT) 23 U/L (5-34); Albumin 4.2 g/dL (3.4-4.8); Alkaline Phosphatase 99 U/L (40-110); Anion Gap 16 mmol/L (10-20); BUN (Urea Nitrogen) 63 mg/dL (8.4-25.7); Bilirubin, Total 0.7 mg/dL (0.2-1.2); Calc. Creatinine Clearance 0 mL/min (70-130); Calcium 7.9 mg/dL (7.8-10.44); Carbon Dioxide 16 mmol/L (23-31); Chloride 113 mmol/L (98-107); Estimated GFR-MDRD 9; Globulin 3.1 g/dL (2.4-3.5); Glucose 87 mg/dL (83-110); Lipase 26 U/L (8-78); Potassium 4.7 mmol/L (3.5-5.1); Protein, Total 7.3 g/dL (5.8-8.1); Sodium 140 mmol/L (136-145)
[2019-08-31 11:29] LABS: #Lymphocytes 0.3 thou/uL (1.20-3.40); #Monocytes 0.3 thou/uL (0.11-0.59); #Neutrophils 2.6 thou/uL (1.40-6.50); %Eosinophils 1.4 % (0.0-10.0); %Lymphocytes 9.1 % (21.0-51.0); %Neutrophils 78.5 % (42.0-75.0); Anisocytosis SLIGHT = 6-15 cells (100X) (0-5/hpf); Hemoglobin 8.3 g/dL (14.0-18.0); MDiff Complete? YES; Macrocytosis SLIGHT = 6-15 cells (100X) (0-5/hpf); Mean Corpuscular HGB CONC 30.7 g/dL (32.0-36.0); Mean Corpuscular Hemoglobin 31.5 pg (27.0-31.0); Mean Platelet Volume 9.3 fL (7.4-10.4); Platelet Count 113 thou/uL (130-400); Platelet Morphology Comment Appears Decreased; Poikilocytosis SLIGHT = 6-15 cells (100X) (0-5/hpf); RBC Distribution Width 16.7 % (11.5-14.5); Red Blood Cell (RBC) Count 2.64 mill/uL (4.70-6.10); White Blood Cell (WBC) Count 3.3 thou/uL (4.8-10.8)
--- NOTE | 2019-08-31 12:57 | CT ---
CT ABDOMEN AND PELVIS WITHOUT CONTRAST: HISTORY: Diarrhea. COMPARISON: 04/20/2019 FINDINGS: The visualized lung bases are clear. Liver: Unremarkable. Gallbladder: Stable appearing Pancreas: Stable noncontrast appearance. Spleen: Unremarkable. Adrenal glands: Unremarkable. Kidneys: Surgical absence of right kidney. The unenhanced left kidney is grossly stable without hydro nephrosis. Parenchymal hypodensities of left kidney remain, incompletely assessed by noncontrast CT imaging, although grossly stable. Right lower quadrant renal transplant is incompletely assessed by n oncontrast CT imaging. Bowel: Incomplete assessment of bowel without IV or enteric contrast. Nonspecific fluid density of the right lateral and posterior pelvis. Urinary Bladder: Mildly distended and unopacified urinary bladder. Free Air: No free air. Ascites: Pelvic ascites, as above. Osseous structures: Diffuse patchy density of the osseous structures is stable in light of the concom itant findings. A component of renal osteodystrophy could produce this imaging appearance. Correlate clinically. IMPRESSION: 1. Moderate free pelvic fluid, new from prior exam, of indeterminate etiology. Correlate clinically. 2. Additional details are described above, within limitations of noncontrast technique. Transcribed Date/Time: 08/31/2019 1:10 PM
[2019-08-31 15:48] LABS: Bacteria/HPF None Seen HPF (None Seen); Bilirubin Negative (Negative); Blood, Urine Negative (Negative); Clarity Clear (Clear); Glucose, Urine (Dipstick) Normal (Negative); Leukocyte Negative Leu/uL (Negative); Nitrite Negative (Negative); Protein, Urine (Dipstick) 100 mg/dL (Neg-Trace); RBC/HPF 0-3 HPF (0-3); Squamous Epithelial 0-3 HPF (0-3); Urobilinogen Normal mg/dL (Less than 2); WBC/HPF 0-3 HPF (0-3)
[2019-08-31] MEDS ORDERED: Acetaminophen 325 MG TAB PO PRN (17:23)
[2019-08-31] MEDS ORDERED: Sodium Chloride 0.9% 1,000 ML IV SCH (17:30)
[2019-08-31] MEDS ORDERED: Atenolol 50 MG TAB PO SCH (19:15)
[2019-08-31] MEDS ORDERED: Ondansetron ODT 4 MG TAB PO PRN (19:58)
[2019-08-31] MEDS ORDERED: Sodium Bicarbonate Tab 325 MG TAB PO SCH (21:00)
[2019-08-31] MEDS ORDERED: Magnesium Oxide 400 MG TAB PO SCH (21:45)
[2019-08-31] MEDS ORDERED: Cinacalcet HCl 30 MG TAB PO SCH (21:45)
[2019-08-31] MEDS ORDERED: Dronabinol 2.5 MG CAP PO SCH (21:45)
[2019-08-31] MEDS: Tacrolimus 1 MG CAP PO SCH (21:53)
[2019-08-31] MEDS: Atenolol 50 MG TAB PO SCH (21:53)
[2019-08-31] MEDS: Famotidine 20 MG TAB PO SCH (21:55)
[2019-09-01] MEDS: cloNIDine 0.1 MG TAB PO PRN ×3 (01:05→17:30)
[2019-09-01] MEDS ORDERED: Dextrose 50% Abboject 50 ML SYRINGE SLOW IVP PRN (01:29)
[2019-09-01] MEDS ORDERED: Dextrose 5% in Water 1,000 ML IV PRN (01:29)
[2019-09-01] MEDS ORDERED: HumaLOG 300 UNITS/3 ML VIAL SC PRN (01:29)
--- NOTE | 2019-09-01 02:31 | HP ---
PRIMARY CARE PHYSICIAN: Abner Cheung MD CHIEF COMPLAINT: Sore throat. HISTORY OF PRESENT ILLNESS: Mr. Marsh is a very pleasant 73-year-old man, who reported to the emergency room today for complaint of itchy throat and chills, onset is 2 weeks ago. Reports he started to have diarrhea at 0200 hours this morning. Reports that he did not have any upset stomach. He just woke up twice and noted that he had runny diarrhea x2. Reports that he got up times, cleaned himself up, went back to bed, went back to sleep, and then came to the emergency room for evaluation. He reports some intermittent abdominal pain, diffuse. Denied any nausea or any vomiting. PAST MEDICAL HISTORY: Pertinent for diabetes type 2; cardiac stents, 1; coronary artery disease; hypertension; has a fistula in the left arm, which is inactive. He has had kidney cancer, colon cancer, prostate cancer, and had a kidney transplant in 2018. Reports that he sees Dr. Prasad for Nephrology and reports that Dr. Franco is covering for him, and his reports that they have already spoken to Dr. Franco and that he is aware of their impending visit to the emergency room. LABORATORY DATA: White blood cell count 3.3, he is on immunosuppressant drugs for his kidney transplant, and this is close to baseline for him. Hemoglobin 8.3, last time it was checked 10 days ago, it was 7.7. Hematocrit 27.1. Platelet count 113. Chemistry; sodium 140, potassium 4.7, chloride 113, carbon dioxide 16, BUN 63, creatinine 7.64 with an estimated GFR of 9, in June 2019 it was 11, and has gone between 12 and 16 since January of this year. Other chemistry is unremarkable. He had a CT scan of abdomen and pelvis, that shows a moderate free pelvic fluid of indeterminate etiology. The patient was given a liter of sodium chloride in the emergency room. The patient states he feels about the same, but has not had any further diarrhea, and he will be admitted to [facility] for further management and observation. REVIEW OF SYSTEMS: The patient reports a sore throat and rhinorrhea. Denies any voice changes. Denies any cough or shortness of breath. Does report some diffuse abdominal pain. Reports diarrhea. Denies any recent constipation, nausea or vomiting. All systems are reviewed and are negative unless mentioned in the HPI or above. PAST MEDICAL HISTORY: See HPI. PAST SURGICAL HISTORY: He has had a dialysis shunt placed, kidney transplant recipient, colon resection, and both kidneys were removed, he does not have one on the right, his left one was transplanted. PSYCHIATRIC HISTORY: None. SOCIAL HISTORY: Denies any alcohol or drug use, is a former tobacco smoker. ALLERGIES: CECLOR, CEFUROXIME, CEPHALOSPORINS, AND CIPRO. HOME MEDICATIONS: 1. Atenolol 50 mg p.o. three times a day. 2. Azathioprine 50 mg p.o. daily. 3. Calcitriol 0.25 mcg p.o. daily. 4. Sensipar 30 mg p.o. b.i.d. 5. Vitamin B12 1000 mcg p.o. daily. 6. Marinol 5 mg p.o. at bedtime. 7. Procrit 10,000 units q.30 days. 8. Levothyroxine 50 mcg p.o. at 0600 hours. 9. Magnesium oxide 400 mg p.o. b.i.d. 10. Zofran 4 mg p.o. q.4 hours as needed. 11. Veltassa 8.4 g p.o. daily. 12. Prednisone 5 mg p.o. daily. 13. Tacrolimus 3 mg p.o. b.i.d. 14. Questran 4 g p.o. b.i.d. 15. Pepcid 20 mg p.o. daily. 16. Sodium bicarbonate 650 mg p.o. b.i.d. PHYSICAL EXAMINATION: VITAL SIGNS: Blood pressure is 160/64, pulse is 63, respirations are 16, temperature is 98.2, and pO2 sats are 100% on room air. CONSTITUTIONAL: The patient is nontoxic appearing. He is alert and oriented to person, place, and time. HEENT: Head is atraumatic and normocephalic. Eyes; pupils are equally round and reactive to light, extraocular muscles are intact. ENT; mouth exam is normal, mucous membranes are moist. NECK: Normal range of motion. Trachea is midline. RESPIRATORY/CHEST: Breath sounds are clear. Chest expansion is equal. CARDIOVASCULAR: Regular rate and rhythm. Heart sounds are normal. ABDOMEN: Some tenderness to the right lower quadrant. Bowel sounds are heard. BACK: Normal inspection. Normal range of motion. EXTREMITIES: Upper extremity; normal range of motion, motor strength is normal, radial pulse is normal. Lower extremity; normal range of motion, motor strength is normal, pedal pulse is normal, no edema is noted. NEUROLOGIC: The patient is oriented to person, place, and time. Speech is normal. SKIN: Warm, dry, normal in color that is visualized. PSYCHIATRIC: He has a normal affect. PLAN/ASSESSMENT: 1. Possible upper respiratory infection. With the patient's immunosuppressed state, we will observe overnight. The patient is anemic with a hemoglobin of 8.1, although this is within the normal range for the patient. White blood cell count is also 3.3, which is normal range for the patient. BUN and creatinine although elevated, that is also within normal limits for this patient. We have called Dr. Franco, who is covering for Dr. Prasad, to have him come see the patient and give us any further recommendations. Gentle hydration at 50 mL per hour. 2. Kidney transplant. The patient is on immunosuppressant therapy. We will restart this. See #1. 3. History of hypertension. Restart home medications. Add p.r.n. medications as needed. 4. History of hypothyroidism. Restart home medications. Check TSH level. 5. Diarrhea. The patient reports that he has not had any further stools while he has been in the emergency room. If he has another bout of diarrhea while he is hospitalized, we will collect this, send it off for C diff and culture. 6. History of diabetes, type 2. A.c. and at bedtime Accu-Cheks. The patient's blood glucose has been within normal limits while here. We will monitor sliding scale as needed for coverage. 7. Deep venous thrombosis and gastrointestinal prophylaxis have been started. 8. Case discussed with Dr. Pepper, who agrees with plan. 9. Hospital course is dependent on clinical findings. Job ID: [id number]
[2019-09-01 04:35] VITALS: BMI 21.7
[2019-09-01 05:44] LABS: #Lymphocytes 0.2 thou/uL (1.20-3.40); #Monocytes 0.3 thou/uL (0.11-0.59); #Neutrophils 1.8 thou/uL (1.40-6.50); %Basophils 1.8 % (0.0-1.0); %Eosinophils 1.5 % (0.0-10.0); %Lymphocytes 10.1 % (21.0-51.0); %Monocytes 12.4 % (0.0-10.0); %Neutrophils 74.2 % (42.0-75.0); Hemoglobin 7.8 g/dL (14.0-18.0); Mean Corpuscular HGB CONC 30.7 g/dL (32.0-36.0); Mean Corpuscular Hemoglobin 31.9 pg (27.0-31.0); Mean Platelet Volume 9.4 fL (7.4-10.4); Platelet Count 105 thou/uL (130-400); RBC Distribution Width 16.6 % (11.5-14.5); Red Blood Cell (RBC) Count 2.45 mill/uL (4.70-6.10); White Blood Cell (WBC) Count 2.4 thou/uL (4.8-10.8)
[2019-09-01] MEDS ORDERED: Levothyroxine Sodium 50 MCG TAB PO SCH (06:00)
[2019-09-01 06:10] LABS: ALT (SGPT) 11 U/L (8-55); AST (SGOT) 18 U/L (5-34); Albumin 3.6 g/dL (3.4-4.8); Alkaline Phosphatase 77 U/L (40-110); Anion Gap 14 mmol/L (10-20); BUN (Urea Nitrogen) 59 mg/dL (8.4-25.7); Bilirubin, Total 0.6 mg/dL (0.2-1.2); Calc. Creatinine Clearance 9 mL/min (70-130); Calcium 7.3 mg/dL (7.8-10.44); Carbon Dioxide 15 mmol/L (23-31); Chloride 116 mmol/L (98-107); Estimated GFR-MDRD 9; Globulin 2.6 g/dL (2.4-3.5); Glucose 79 mg/dL (83-110); Potassium 5.3 mmol/L (3.5-5.1); Protein, Total 6.2 g/dL (5.8-8.1); Sodium 140 mmol/L (136-145)
[2019-09-01] MEDS: Famotidine 20 MG TAB PO SCH (08:23)
[2019-09-01] MEDS: Sodium Bicarbonate Tab 325 MG TAB PO SCH ×2 (08:23→15:37)
[2019-09-01] MEDS: Atenolol 50 MG TAB PO SCH ×2 (08:23→15:37)
[2019-09-01] MEDS: Tacrolimus 1 MG CAP PO SCH (08:24)
[2019-09-01] MEDS: Cinacalcet HCl 30 MG TAB PO SCH ×2 (08:24→17:22)
[2019-09-01] MEDS ORDERED: Magnesium Oxide 400 MG TAB PO SCH (09:00)
[2019-09-01] MEDS ORDERED: Amlodipine 5 MG TAB PO SCH (09:00)
[2019-09-01] MEDS ORDERED: Calcitriol 0.25 MCG CAP PO SCH (09:00)
[2019-09-01] MEDS ORDERED: FLU VACC TS2019-20(65YR UP)/PF 180 MCG/0.5 ML SYRINGE IM ONE (09:00)
[2019-09-01] MEDS ORDERED: predniSONE 5 MG TAB PO SCH (09:00)
[2019-09-01] MEDS ORDERED: Cyanocobalamin (Vitamin B-12) 1,000 MCG TAB PO SCH (09:00)
[2019-09-01] MEDS ORDERED: azaTHIOprine 50 MG TAB PO SCH (09:00)
[2019-09-01] MEDS: Cholestyramine/Aspartame 4 gm Packet PO SCH ×2 (09:00→17:21)
[2019-09-01] MEDS ORDERED: Cinacalcet HCl 30 MG TAB PO SCH (09:00)
[2019-09-01] MEDS ORDERED: Patiromer Calcium Sorbitex [Veltassa] 8.4 GM PO SCH (09:00)
--- NOTE | 2019-09-01 10:02 | ULT ---
Left upper extremity venous Doppler ultrasound: 09/01/2019 HISTORY: Swelling, edema, assess for DVT TECHNIQUE: Multiplanar grayscale sonographic imaging of the venous structures FINDINGS: Left internal jugular vein, subclavian vein, and axillary vein are patent. There is a graft in the left upper extremity which is patent. Left basilic vein, cephalic vein, brachial vein patent as well. Venous structures of the forearm are not imaged. IMPRESSION: No evidence for left upper extremity DVT.
--- NOTE | 2019-09-01 11:36 | CON ---
DATE OF CONSULTATION: 09/01/2019 SERVICE: Nephrology. REASON FOR CONSULTATION: Transplant kidney management. REQUESTING PHYSICIAN/PROVIDER: Nurse practitioner, Tere Reeves. HISTORY OF PRESENT ILLNESS: A 73-year-old male with end-stage renal disease status post renal transplant, hypertension, amongst others, who presents to the hospital with itchy throat associated with chills as well as acute onset of frequent loose stools and abdominal discomfort. The patient denied fever, nausea, vomiting, hematemesis, hematuria, dysuria, hematochezia, or melena. He also denied headache, focal weakness, leg swelling, or dizziness. He also denied cough or shortness of breath. He was evaluated in the ER with CT scan of the abdomen, which showed some free fluid in the abdomen of unclear etiology. Given history of transplant with immunosuppression, the patient was admitted for observation overnight. He reports feeling better this morning. Denied fever. He desires to eat some solid food. PAST MEDICAL HISTORY: 1. Status post renal transplant. 2. End-stage renal disease. 3. Type 2 diabetes mellitus. 4. Coronary artery disease. 5. Hypertension. 6. Kidney cancer status post resection. 7. Prostatic cancer. PAST SURGICAL HISTORY: 1. Left arm AV fistula creation. 2. Cardiac catheterization. 3. Nephrectomy. 4. Kidney transplant. 5. Colon resection. FAMILY HISTORY: Reviewed, but noncontributory. SOCIAL HISTORY: The patient lives with spouse. He is a former smoker. Denied alcohol or recreational drug use. ALLERGIES: CECLOR, CEFUROXIME, CEPHALOSPORINS, AND CIPRO. HOME MEDICATIONS: 1. Zofran 4 mg q.4 p.r.n. 2. Procrit 10,000 units subcutaneously every 30 days. 3. Atenolol 50 mg t.i.d. 4. Azathioprine 50 mg p.o. daily. 5. Calcitriol 0.25 p.o. daily. 6. Cinacalcet 30 mg p.o. b.i.d. 7. Vitamin B12 of 1000 mcg p.o. daily. 8. Marinol 5 mg p.o. daily at bedtime. 9. Levothyroxine 50 mcg p.o. daily. 10. Magnesium oxide 400 mg p.o. b.i.d. 11. Patiromer, Veltassa 8.4 g p.o. daily. 12. Prednisone 5 mg p.o. daily. 13. Tacrolimus 3 mg p.o. b.i.d. 14. Cholestyramine or Questran 4 g p.o. b.i.d. 15. Pepcid 20 mg p.o. daily. 16. Sodium bicarbonate 650 mg p.o. b.i.d. REVIEW OF SYSTEMS: Twelve-point review of system performed was negative other than pertinent positives and negatives included in the history of present illness. PHYSICAL EXAMINATION: VITAL SIGNS: Temperature 98.1, pulse 63, respiratory rate 20, SpO2 of 96 on room air, and blood pressure is 176/76. GENERAL: Comfortable male patient, in no obvious distress. Afebrile. Anicteric. Acyanotic. HEENT: Normocephalic and atraumatic. Oral mucosa is moist. NECK: Supple and nontender with no JVD. CARDIOVASCULAR: Regular rhythm and rate. Normal heart sounds 1 and 2. RESPIRATORY: Fair air entry bilaterally with no obvious crackle or rhonchi or use of accessory muscles. GI: Full, soft. Mild diffuse tenderness with normal bowel sounds. EXTREMITIES: Grossly normal looking, atraumatic with no edema or erythema. Left upper limb global swelling noted as well as left upper arm AV fistula with thrill. FX ARTIST: Conscious, alert, oriented x3 with appropriate mental status. Cranial nerves 2 through 12 are grossly intact. The patient moves all extremities. DIAGNOSTIC DATA: CBC today showed WBC count of 2.4, hemoglobin of 7.8, MCV of 104, platelets of 105. On presentation yesterday, 08/31/2019, WBC was 3.3, hemoglobin 8.3, MCV 103, and platelets 113. BMP today showed sodium 140, potassium 5.3, chloride 116, CO2 of 15, BUN 59, creatinine 7.32, glucose 79, and calcium 7.3. Total bilirubin 0.6, AST 18, ALT 11, alkaline phosphatase 77, total protein 6.2, albumin 3.6, and globulin 2.6. Of note, on presentation yesterday, 08/31, sodium was 140, potassium 4.7, chloride 113, CO2 of 16, BUN 63, creatinine 7.62. Review of medical record showed that the patient's creatinine was 7.51 on 08/18 and 7.82 on 08/24. However, on 07/08, creatinine was 5.99. Urinalysis showed clear light yellow urine with pH of 6.0, specific gravity of 1.011, urine protein of 100 mg/dL, normal glucose and negative ketone, blood, nitrite, bilirubin, and leukocyte esterase. Microscopy showed 0 to 3 rbc and 0 to 3 wbc with no bacteria. The CT scan of the abdomen without contrast showed moderate free pelvic fluids, new from prior exam, of unclear etiology. Absent right kidney as well as unenhanced left kidney, that is stable with no hydronephrosis noted. ASSESSMENT: 1. Chronic allograft nephropathy: The acute component from fluid deficit/volume depletion cannot be ruled out. The patient appeared clinically dry. Creatinine and BUN are down with IV fluid therapy. 2. Hyperkalemia: Chronic. The patient is on Veltassa. Acute hyperkalemia overnight from 4.7 to 5.3 today, most likely related to worsening metabolic acidosis of hyperchloremic type, given normal saline therapy. 3. Acute upper respiratory infection: Improved. Flu screen was negative. The patient reports feeling better. 4. Transient frequent loose stool: Subsided. 5. Hypertension: Control is suboptimal. The patient also was getting IV fluid therapy. 6. Type 2 diabetes mellitus. 7. Status post right nephrectomy. 8. Hypothyroidism. 9. Left upper extremity edema. Deep vein thrombosis is a concern. 10. Abdominal tenderness. 11. Pelvic free fluid of unclear etiology. PLAN: 1. We discontinue normal saline therapy due to worsening metabolic acidosis. Mostly, the patient is tolerating clear liquid. We will also advance diet to regular renal diabetic diet. 2. We will also start the patient on amlodipine 5 mg to get adequate BP control. We will increase the dose to 10 if BP is not adequately controlled. 3. We will restart Veltassa if it is available in this hospital. 4. We will also increase sodium bicarbonate therapy to t.i.d. due to worsening metabolic acidosis. 5. We will get left upper extremity ultrasound to rule out DVT. DISPOSITION: Given that the patient is feeling a lot better, the patient can be discharged from Nephrology point of view if he is tolerating oral diet. Many thanks for involving us in the care of this patient. We will continue to follow along with you. If, however, the patient is still in the hospital, we will get Prograf level given increased creatinine to rule out calcium urine toxicity. Job ID: [id number]
[2019-09-01] MEDS ORDERED: Cepastat Lozenges 1 LOZ PO PRN (12:29)
[2019-09-01 12:51] LABS: #Lymphocytes 0.2 thou/uL (1.20-3.40); #Monocytes 0.3 thou/uL (0.11-0.59); #Neutrophils 2.2 thou/uL (1.40-6.50); %Eosinophils 0.8 % (0.0-10.0); %Lymphocytes 8.2 % (21.0-51.0); %Monocytes 10.1 % (0.0-10.0); %Neutrophils 80.8 % (42.0-75.0); Anion Gap 10 mmol/L (10-20); BUN (Urea Nitrogen) 59 mg/dL (8.4-25.7); Calc. Creatinine Clearance 9 mL/min (70-130); Calcium 7.4 mg/dL (7.8-10.44); Carbon Dioxide 19 mmol/L (23-31); Chloride 114 mmol/L (98-107); Estimated GFR-MDRD 9; Glucose 144 mg/dL (83-110); Hemoglobin 7.7 g/dL (14.0-18.0); Mean Corpuscular HGB CONC 30.9 g/dL (32.0-36.0); Mean Corpuscular Hemoglobin 31.8 pg (27.0-31.0); Mean Platelet Volume 9.6 fL (7.4-10.4); Platelet Count 98 thou/uL (130-400); Potassium 5.4 mmol/L (3.5-5.1); RBC Distribution Width 16.4 % (11.5-14.5); Red Blood Cell (RBC) Count 2.42 mill/uL (4.70-6.10); Sodium 138 mmol/L (136-145); White Blood Cell (WBC) Count 2.7 thou/uL (4.8-10.8)
[2019-09-01] MEDS ORDERED: Atenolol 50 MG TAB PO SCH (13:00)
[2019-09-01 13:09] LABS: Albumin 3.5 g/dL (3.4-4.8)
[2019-09-01 13:10] LABS: Chloride 113 mmol/L (98-107); Potassium 5.3 mmol/L (3.5-5.1); Sodium 138 mmol/L (136-145)
[2019-09-01 13:11] LABS: Calcium 7.3 mg/dL (7.8-10.44); Glucose 142 mg/dL (83-110)
[2019-09-01 13:13] LABS: Anion Gap 11 mmol/L (10-20); Carbon Dioxide 19 mmol/L (23-31)
[2019-09-01 13:14] LABS: Phosphorus 4.8 mg/dL (2.3-4.7)
[2019-09-01 13:15] LABS: Calc. Creatinine Clearance 9 mL/min (70-130); Estimated GFR-MDRD 9
[2019-09-01 13:16] LABS: BUN (Urea Nitrogen) 59 mg/dL (8.4-25.7); BUN/Creatinine Ratio 8.01
[2019-09-01 18:34] VITALS: BP 168/77; TEMP 98.4
[2019-09-01] MEDS ORDERED: DRONABINOL 5 MG PO SCH (21:00)
[2019-09-01] MEDS ORDERED: Dronabinol 2.5 MG CAP PO SCH (21:00)
--- NOTE | 2019-09-03 11:40 | DIS ---
DATE OF ADMISSION: 08/31/2019 DATE OF DISCHARGE: 09/01/2019 DISCHARGE DIAGNOSES: 1. Diarrhea. 2. Possible upper respiratory infection like infection, which was ruled out. 3. History of kidney transplant, on immunocompromised medication. 4. Hypothyroidism. 5. Chronic kidney disease. No need for dialysis. HOSPITAL COURSE: The patient is a very pleasant 73-year-old male with history of multiple cancers. He stated that he had large diarrhea x1 on the day he came into the hospital. The patient had generalized weakness. He also complained of a little bit of itchy throat. The patient states that he just recently completed a course of antibiotics a couple of days ago with amoxicillin for about 10 days. His respiratory viral panel was negative for any kind of infectious etiology. His stool also was negative including Campylobacter and E coli shiga, C diff, and also the stool culture just showed normal enteric betzy. The patient was hydrated gently. He also was seen by Nephrology given his CKD. He did have some hyperkalemia. However, he is on a medication, which the patient's did not bring and we do not carry that medication. The medication it called Veltassa. I did speak with the pairing machine operator who stated that if he is able to tolerate his meals, he is okay for discharge. The patient did tolerate his meals. I spoke with his . He will be discharged. His only new prescription will be amlodipine 5 mg and also his bicarb has been increased from twice a day to three times a day. I have conveyed this to the patient and the patient's . HOME MEDICATIONS: 1. Norvasc 5 mg daily. 2. Sodium bicarb 650 t.i.d. 3. He is on cholestyramine 4 g b.i.d. 4. Levothyroxine 50 mcg daily. 5. Prednisone 5 mg daily. 6. Atenolol 50 mg three times a day. 7. Marinol 5 mg daily. 8. He is on Sensipar 30 mg b.i.d. 9. He is on Veltassa also. 10. Tacrolimus 3 mg b.i.d. 11. Pepcid. 12. Azathioprine. DISCHARGE PHYSICAL EXAMINATION: VITAL SIGNS: On discharge, temperature of 98.4, pulse 65, respirations 16, O2 saturations 96% on room air, blood pressure 168/77. GENERAL: He is awake, alert, and oriented x3. He does not appear in distress. CARDIOVASCULAR: S1 and S2 present. No murmurs, rubs, or gallops. Again, he will be discharged home. He will follow up with his primary and also with Nephrology. Job ID: [id number]
[2019-09-04 01:07] LABS: Tacrolimus 7.6 ng/mL (2.0-20.0)
== END 2019-09-01 17:50 | disposition home or self-care (01) ==
LOC: ERS 09:31 → T4-B 15:17
PROVIDERS: ADMIT Hospitalist; ATTEND Hospitalist
DX: R19.7 Diarrhea, unspecified (principal); J02.9 Acute pharyngitis, unspecified; I12.9 Hypertensive chronic kidney disease with stage 1 through stage 4 chronic kidney disease, or unspecified chronic kidney disease; E11.22 Type 2 diabetes mellitus with diabetic chronic kidney disease; N18.9 Chronic kidney disease, unspecified; I25.10 Atherosclerotic heart disease of native coronary artery without angina pectoris; E03.9 Hypothyroidism, unspecified; D64.9 Anemia, unspecified; Z79.899 Other long term (current) drug therapy; Z87.891 Personal history of nicotine dependence; Z88.1 Allergy status to other antibiotic agents; E87.5 Hyperkalemia; Z95.5 Presence of coronary angioplasty implant and graft; Z94.0 Kidney transplant status
CPT/HCPCS: 74176; 80048; 80053; 80069; 80197; 82962 ×2; 83690; 85025 ×2; 87045; 87046; 87086; 87324; 87427 ×2; 87449 ×2; 87804 ×2; 90662; 93971; 96360; 96361 ×3; 97139; 99285; G0008; G0378 ×3; 36415; 36416; 81003; 81015; 84443; 87081; 90471; J7500; J7507; J7512

== ENCOUNTER 2019-09-24 08:12 | Day surgery (SDC) | payer MEDICARE, BC ==
[2019-09-24] MEDS ORDERED: EPOETIN ALFA-EPBX (ESRD) 40,000 UNIT/ML VIAL ONE (08:15)
[2019-09-24 08:33] LABS: Hemoglobin 7.6 g/dL (14.0-18.0)
[2019-09-24] MEDS ORDERED: EPOETIN ALFA-EPBX (ESRD) 40,000 UNIT/ML VIAL SC SCH (09:00)
== END 2019-09-24 09:03 | disposition home or self-care (01) ==
LOC: ONC/OP 08:12
PROVIDERS: ATTEND Internal Medicine Nephrology
DX: N18.9 Chronic kidney disease, unspecified (principal); D63.1 Anemia in chronic kidney disease; Z88.1 Allergy status to other antibiotic agents
CPT/HCPCS: 85014; 85018; 96372; Q5105

== ENCOUNTER 2019-09-29 08:52 | Inpatient (IN) | payer MEDICARE, BC ==
[2019-09-29 10:48] LABS: Anion Gap 15 mmol/L (10-20); BUN (Urea Nitrogen) 61 mg/dL (8.4-25.7); Calc. Creatinine Clearance 0 mL/min (70-130); Calcium 7.5 mg/dL (7.8-10.44); Carbon Dioxide 19 mmol/L (23-31); Chloride 114 mmol/L (98-107); Estimated GFR-MDRD 8; Glucose 88 mg/dL (83-110); Potassium 5.8 mmol/L (3.5-5.1); Sodium 142 mmol/L (136-145)
[2019-09-29] MEDS ORDERED: Ondansetron PF 4 MG/2 ML Vial IVP PRN (12:17)
[2019-09-29] MEDS ORDERED: Acetaminophen 325 MG TAB PO PRN (12:17)
--- NOTE | 2019-09-29 16:01 | RAD ---
EXAM: Two views chest PROVIDED CLINICAL HISTORY: Evaluate for tuberculosis be COMPARISON: 08/07/2016. FINDINGS: Cardiac silhouette is at the upper limits of normal. The pulmonary vasculature is within normal limit s. The lungs are clear. Degenerative changes are seen in the spine. Vascular calcifications are seen in thoracic aorta. Multiple vascular stents overlie the region of the left subclavian vessels as well as overlying the left axillary vessels and medial aspect left proximal forearm. Multiple surgical clips overlie the right upper quadrant. IMPRESSION: 1. No acute cardiopulmonary process. 2. No radiographic findings to suggest active tuberculosis based on this exam.
--- NOTE | 2019-09-29 16:02 | CON ---
DATE OF CONSULTATION: 09/29/2019 SUBJECTIVE: A 73-year-old male with known history of end-stage renal disease, status post renal transplant, complicated with chronic allograft nephropathy, admitted due to worsening nausea, vomiting, and poor appetite. The patient is felt to have end-stage renal disease of the transplanted kidney and dialysis is planned. The nausea and vomiting are felt to be uremic symptoms. Hence, the patient is admitted for initiation of hemodialysis. The patient was supposed to have EGD earlier today by Gastroenterology, but that was canceled due to inability to get IV access. OBJECTIVE: VITAL SIGNS: Temperature 98.3, pulse 68, respiratory rate 18, SpO2 of 97% on room air, blood pressure is 168/75. GENERAL: Comfortable male patient, in no distress. Afebrile. Anicteric. Acyanotic. HEENT: Normocephalic and atraumatic. Oral mucosa is moist. NECK: Supple and nontender. CARDIOVASCULAR: Regular rhythm and rate. Normal heart sounds 1 and 2. RESPIRATORY: Fair air entry bilaterally with few bibasilar transmitted breath sounds. No obvious crackle, rhonchi, or use of accessory muscles. GI: Full, soft, nontender, nondistended with normal bowel sounds. EXTREMITIES: Grossly normal looking atraumatic with no obvious edema or erythema. Left upper arm AV fistula with thrill noted. STEAM BOX TENDER: Conscious, alert, oriented x3 with appropriate mental status. Cranial nerves 2 through 12 are grossly intact. DIAGNOSTIC DATA: BMP showed sodium 142, potassium 5.8, chloride 114, CO2 19, BUN 61, creatinine 7.78, glucose 88, calcium 7.5. ASSESSMENT: 1. Chronic kidney disease, stage 5/end-stage renal disease: Due to acute-on- chronic allograft nephropathy. 2. Hyperkalemia, chronic. The patient is still on Veltassa yet. Potassium is still 5.8. 3. Metabolic acidosis due to chronic kidney disease. 4. Hypertension. 5. Type 2 diabetes mellitus. 6. End-stage renal disease due to right nephrectomy and diabetic nephropathy, status post renal transplant. 7. Hypothyroidism. PLAN: 1. We will initiate hemodialysis on this patient. We will plan to do dialysis for 2 hours today. 2. We will also get hepatitis panel as well as chest x-ray to help with placement. 3. Continue immunosuppression. 4. We will also consult script worker to help with placement. Once placement can be concluded, the patient can be discharged to continue outpatient hemodialysis. 5. We will reassess the patient tomorrow. We will also get renal function panel and CBC tomorrow. Many thanks for involving us in the care of this patient. We will follow along with you. Job ID: [id number] MTDD
[2019-09-29 16:24] LABS: Hep B Core Total Ab Non-Reactive (NonReactive); Hep B Core Total Index 0.12 S/CO (0-0.79)
[2019-09-29 16:28] LABS: HBSAB Concentration 1.74 mIU/mL; HBSAg Index 0.45 S/CO (0-0.99); Hep B Surf AB Non-Reactive (NonReactive); Hep B Surf Ag Non-Reactive S/CO (NonReactive)
[2019-09-29 16:29] LABS: Hep C IgG Ab Non-Reactive (NonReactive); Hep C Index 0.15 S/CO (0-0.79)
--- NOTE | 2019-09-29 18:49 | PDOC.HHP ---
Hospitalist HPI - History of Present Illness Persistent nausea History of Present Illness: 73 YO M with a PMH of HTN, DM, ESRD s/p renal transplant 2 days which pt has rejected. Pt has been having persistent nausea and dry heaves for about 4 month. Nephrology felt pt was getting uremic and wanted to restart pt's HD but wanted to get a GI w/u first to ensure his symps were not from a GI source. Pt was scheduled to have an EGD today, but that was canceled due to pt not able to get an IV access. Nephrology however wanted pt admitted to start HD and get a HD chair. Hospitalist ROS - Review of Systems Constitutional: denies: fever, chills, sweats, weakness, malaise, other Eyes: denies: pain, vision change, conjunctivae inflammation, eyelid inflammation, redness, other ENT: denies: ear pain, ear discharge, nose pain, nose discharge, nose congestion , mouth pain, mouth swelling, throat pain, throat swelling, other Respiratory: denies: cough, dry, shortness of breath, hemoptysis, SOB with excertion, pleuritic pain, sputum, wheezing, other Cardiovascular: denies: chest pain, palpitations, orthopnea, paroxysmal noc. dyspnea, edema, light headedness, other Gastrointestinal: reports: nausea. denies: vomiting, abdominal pain, diarrhea, constipation, melena, hematochezia, other Genitourinary: denies: dysuria, frequency, incontinence, hematuria, retention, other Musculoskeletal: denies: neck pain, shoulder pain, arm pain, back pain, hand pain, leg pain, foot pain, other Skin: denies: rash, lesions, edilson, bruising, other Neurological: denies: weakness, numbness, incoordination, change in speech, confusion, seizures, other Hospitalist History - Past Medical History Cardiac: reports: CAD Heme/Onc: reports: Cancer (Prostate cancer. Colon Cancer. Renal cancer.) Renal/: reports: Chronic renal failure Endocrine: reports: Diabetes - Past Surgical History Past Surgical History: reports: Other (AVG placement. Right renal nephrectomy. Right renal transplant. Cardiac stent.) - Family History Family History: reports: hypertension - Social History Alcohol: reports: None Drugs: reports: none Living Situation: With Family Activity level: independent ambulation - Exam General Appearance: NAD, awake alert Eye: PERRL, anicteric sclera ENT: normocephalic atraumatic, no oropharyngeal lesions, moist mucosa Neck: supple, symmetric, no thyromegaly, no lymphadenopathy Heart: RRR, no murmur, no gallops, no rubs, normal peripheral pulses Respiratory: CTAB, no wheezes, no rales, no ronchi, normal chest expansion Gastrointestinal: soft, non-tender, non-distended, normal bowel sounds Extremities: no cyanosis, no clubbing, no edema Skin: no lesions, no rashes Neurological: cranial nerve grossly intact, no focal deficits Musculoskeletal: normal strength, no muscle wasting Psychiatric: normal affect, normal behavior, A&O x 3 Hospitalist Results - Labs Result Diagrams: 09/29/19 08:30 Lab results: Sodium 142 mmol/L (136-145) 09/29/19 08:30 Potassium 5.8 mmol/L (3.5-5.1) H 09/29/19 08:30 Chloride 114 mmol/L (98-107) H 09/29/19 08:30 Carbon Dioxide 19 mmol/L (23-31) L 09/29/19 08:30 BUN 61 mg/dL (8.4-25.7) H 09/29/19 08:30 Creatinine 7.78 mg/dL (0.7-1.3) H 09/29/19 08:30 Glucose 88 mg/dL (83-110) 09/29/19 08:30 Calcium 7.5 mg/dL (7.8-10.44) L 09/29/19 08:30 Hospitalist H&P A/P - Problem (1) ESRD (end stage renal disease) Code(s): N18.6 - END STAGE RENAL DISEASE Status: Acute Assessment and Plan: s/p failed renal transplant. Nephrology wants pt to be started on HD for possible uremia. Will defer mgt to them. Will consult case planner for HD chair. (2) Metabolic acidosis Code(s): E87.2 - ACIDOSIS Status: Chronic Assessment and Plan: Due to CKD, will defer mgt to Nephrology. (3) Nausea Code(s): R11.0 - NAUSEA Status: Acute Assessment and Plan: A/w dry heaves. Nephrology feels this is due to early stage uremia. Pt was to have an EGd which was canceld today. This wuill be reschdule for later. Will start HD and see if pts symps improve. For now will give Karonfran PRN. (4) Diabetes Code(s): E11.9 - TYPE 2 DIABETES MELLITUS WITHOUT COMPLICATIONS Status: Acute Qualifiers: Diabetes mellitus type: type 2 Diabetes mellitus jail insulin use: unspecified jail insulin use status Diabetes mellitus complication status : without complication Qualified Code(s): E11.9 - Type 2 diabetes mellitus without complications Assessment and Plan: Will resume home meds, monitor BG, cover with SSI. (5) H/O malignant neoplasm of colon Code(s): Z85.038 - PERSONAL HISTORY OF MALIGNANT NEOPLASM OF LARGE INTESTINE Status: Chronic Assessment and Plan: s/p resection. No issues at this time. (6) Prostate cancer Code(s): C61 - MALIGNANT NEOPLASM OF PROSTATE Status: Acute Assessment and Plan: s/p Sx. No issues at this time. (7) Renal cell cancer Code(s): C64.9 - MALIGNANT NEOPLASM OF UNSP KIDNEY, EXCEPT RENAL PELVIS Status : Acute Assessment and Plan: s/p nephrectomy. No issues at this time. (8) Hyperkalemia Code(s): E87.5 - HYPERKALEMIA Status: Acute Assessment and Plan: Asymptomatic. Expect this to resolve with HD. Will monitor K levels. - Plan Plan: PPx: PPI. CODE: FULL. Dispo: Admit as inpt.
[2019-09-29] MEDS ORDERED: Ondansetron ODT 4 MG TAB PO PRN (19:09)
[2019-09-29] MEDS ORDERED: Epoetin (ESRD) 10,000 UNITS/ML VIAL SC SCH (19:15)
[2019-09-29] MEDS ORDERED: Amlodipine 5 MG TAB PO SCH (21:45)
[2019-09-29] MEDS ORDERED: Atenolol 50 MG TAB PO SCH (21:45)
[2019-09-29] MEDS ORDERED: HumaLOG 300 UNITS/3 ML VIAL SC PRN ×2 (23:31)
[2019-09-29] MEDS ORDERED: Dextrose 5% in Water 1,000 ML IV PRN (23:31)
[2019-09-29] MEDS ORDERED: Dextrose 50% Abboject 50 ML SYRINGE IVP PRN (23:31)
[2019-09-29] MEDS: Sodium Bicarbonate Tab 325 MG TAB PO SCH (23:58)
[2019-09-29] MEDS: Tacrolimus 1 MG CAP PO SCH (23:58)
[2019-09-29] MEDS: hydrALAZINE 25 MG TAB PO SCH (23:59)
[2019-09-29] MEDS: Magnesium Oxide 400 MG TAB PO SCH (23:59)
[2019-09-30] MEDS ORDERED: hydrALAZINE 20 MG/ML VIAL SLOW IVP SCH (02:30)
[2019-09-30 05:10] LABS: #Eosinphils 0.1 thou/uL (0.0-0.7); #Lymphocytes 0.4 thou/uL (1.20-3.40); #Monocytes 0.4 thou/uL (0.11-0.59); %Basophils 0.4 % (0.0-1.0); %Eosinophils 2.3 % (0.0-10.0); %Lymphocytes 12.7 % (21.0-51.0); %Monocytes 13.5 % (0.0-10.0); %Neutrophils 71.1 % (42.0-75.0); Hemoglobin 6.6 g/dL (14.0-18.0); Mean Corpuscular HGB CONC 30.6 g/dL (32.0-36.0); Mean Corpuscular Hemoglobin 31.6 pg (27.0-31.0); Mean Platelet Volume 9.5 fL (7.4-10.4); Platelet Count 108 thou/uL (130-400); RBC Distribution Width 15.1 % (11.5-14.5); Red Blood Cell (RBC) Count 2.09 mill/uL (4.70-6.10); White Blood Cell (WBC) Count 2.8 thou/uL (4.8-10.8)
[2019-09-30 05:20] LABS: Albumin 3.2 g/dL (3.4-4.8); Anion Gap 11 mmol/L (10-20); BUN (Urea Nitrogen) 42 mg/dL (8.4-25.7); BUN/Creatinine Ratio 7.54; Calc. Creatinine Clearance 11 mL/min (70-130); Calcium 7.4 mg/dL (7.8-10.44); Carbon Dioxide 24 mmol/L (23-31); Chloride 110 mmol/L (98-107); Estimated GFR-MDRD 12; Glucose 74 mg/dL (83-110); Potassium 4.6 mmol/L (3.5-5.1); Sodium 140 mmol/L (136-145)
[2019-09-30] MEDS: Levothyroxine Sodium 50 MCG TAB PO SCH (07:24)
[2019-09-30] MEDS: hydrALAZINE 25 MG TAB PO SCH ×3 (08:07→20:18)
[2019-09-30] MEDS: Atenolol 50 MG TAB PO SCH (08:07)
[2019-09-30] MEDS: Cholestyramine/Aspartame 4 gm Packet PO SCH ×2 (08:08→18:01)
[2019-09-30] MEDS: Calcitriol 0.25 MCG CAP PO SCH (08:09)
[2019-09-30] MEDS: Enoxaparin Sodium 30 MG/0.3 ML SYRINGE SC SCH (08:09)
[2019-09-30] MEDS: Famotidine 20 MG TAB PO SCH (08:09)
[2019-09-30] MEDS: Cyanocobalamin (Vitamin B-12) 1,000 MCG TAB PO SCH (08:09)
[2019-09-30] MEDS: Cinacalcet HCl 30 MG TAB PO SCH ×3 (08:09→20:18)
[2019-09-30] MEDS: Magnesium Oxide 400 MG TAB PO SCH ×2 (08:09→20:18)
[2019-09-30] MEDS: predniSONE 5 MG TAB PO SCH (08:11)
[2019-09-30] MEDS: azaTHIOprine 50 MG TAB PO SCH (08:11)
[2019-09-30] MEDS: Tacrolimus 1 MG CAP PO SCH ×2 (08:11→20:19)
[2019-09-30] MEDS: Sodium Bicarbonate Tab 325 MG TAB PO SCH ×3 (08:12→20:18)
[2019-09-30] MEDS ORDERED: Amlodipine 5 MG TAB PO SCH ×3 (09:00)
--- NOTE | 2019-09-30 10:35 | PRG ---
DATE OF SERVICE: 09/30/2019 SERVICE: Nephrology. SUBJECTIVE: A 73-year-old male with end-stage renal disease, status post renal transplant, who is seen in followup for end-stage renal disease due to chronic allograft nephropathy associated with hyperkalemia. The patient was initiated on hemodialysis yesterday. Denied nausea, vomiting, abdominal pain, or leg swelling. Reports feeling better. OBJECTIVE: VITAL SIGNS: Temperature 97.8, pulse 72, respiratory rate 16, SpO2 of 98% on room air, blood pressure is 184/81. GENERAL: Comfortable male, in no distress. Afebrile. Anicteric. Acyanotic. HEENT: Normocephalic, atraumatic. Oral mucosa is moist. CARDIOVASCULAR: Regular rhythm and rate with normal heart sounds. Systolic murmur noted. GI: Full, soft, nontender, nondistended with normal bowel sounds. EXTREMITIES: Grossly normal looking atraumatic with no obvious edema or erythema. DIAGNOSTIC DATA: CBC showed WBC count of 2.8, hemoglobin of 6.6, MCV of 103, platelet of 108. Renal function panel showed sodium 140, potassium 4.6, chloride 110, CO2 of 24, BUN 42, creatinine 5.57, glucose 74, calcium 7.4, phosphorus 3.0, albumin 3.2. ASSESSMENT: 1. Acute on chronic allograft nephropathy, now end-stage on and initiated on hemodialysis. 2. Anemia in chronic kidney disease. Hemoglobin went down to 6.6 from 7.2. The patient has chronic anemia of chronic kidney disease. 3. Uncontrolled hypertension with systolic blood pressure ranging from 180 to 200. 4. Metabolic acidosis: Improved with dialysis initiation. 5. Hyperkalemia. Improved with dialysis. 6. Status post renal transplant, on immunosuppressive therapy. PLAN: 1. We will plan on dialyzing the patient for 3 hours today. 2. We will increase amlodipine to 10 mg p.o. daily. 3. We will get iron chemistry and start the patient on IV iron as well as erythrocyte stimulating agent if indicated. 4. Esophagogastroduodenoscopy planned for evaluation of anemia. 5. Further treatment to follow depending on hospital course. We will follow along with you. Job ID: [id number]
[2019-09-30] MEDS: Patiromer Calcium Sorbitex [Veltassa] 8.4 GM PO SCH (11:03)
[2019-09-30 11:12] LABS: Iron 47 ug/dL (65-175); Iron Binding Capacity, Total 154 mcg/dL (261-462)
[2019-09-30] MEDS ORDERED: PROPOFOL 200 MG/20 ML VIAL ONE (12:31)
[2019-09-30] MEDS ORDERED: Promethazine HCl 25 MG/ML VIAL IM PRN (13:10)
[2019-09-30] MEDS ORDERED: Promethazine HCl 25 MG/ML VIAL SLOW IVP PRN (13:10)
[2019-09-30] MEDS ORDERED: Ondansetron HCl/PF 4 MG/2 ML Vial IVP PRN (13:10)
--- NOTE | 2019-09-30 14:51 | PDOC.HOSPP ---
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 EGD performed today for anemia workup with results pending. - Objective Vital Signs & Weight: Vital Signs (12 hours) Temp Pulse Resp BP Pulse Ox 09/30/19 11:24 98.0 F 18 98 09/30/19 10:26 73 171/81 H 09/30/19 07:22 97.8 F 72 16 184/81 H 98 09/30/19 04:07 98.1 F 68 16 161/77 H 100 Weight Weight 147 lb 1.6 oz I&O: 09/29/19 09/30/19 10/01/19 06:59 06:59 06:59 Intake Total 1120 Balance 1120 Result Diagrams: 09/30/19 04:42 09/30/19 04:42 Additional Labs: Accuchecks 09/30/19 09/30/19 09/30/19 10:27 05:53 04:19 POC Glucose 94 77 135 H 09/29/19 20:55 POC Glucose 284 H Laboratory Tests 09/01/19 09/01/19 09/24/19 05:06 12:21 08:17 WBC 2.4 L 2.7 L Hgb 7.8 L 7.7 L 7.6 L Phosphorus Iron TIBC Ferritin Albumin 09/29/19 09/30/19 09/30/19 08:34 04:42 10:36 WBC 3.7 L Hgb 7.3 L Phosphorus 3.0 Iron 47 L TIBC 154 L Ferritin Albumin 3.2 L 09/30/19 10:36 WBC Hgb Phosphorus Iron TIBC Ferritin 899.70 H Albumin Radiology Reviewed by me: Yes (EGD - mild gastritis) EKG Reviewed by me: Yes (Tele - SR) Hospitalist ROS - Medication Medications: Active Medications Generic Name Dose Route Start Last Admin Trade Name Freq PRN Reason Stop Dose Admin Atenolol 100 mg 09/30/19 09:00 09/30/19 08:07 Tenormin PO 100 mg DAILY [place] Administration Azathioprine 50 mg 09/30/19 09:00 09/30/19 08:11 Imuran PO 50 mg DAILY [place] Administration Calcitriol 0.25 mcg 09/30/19 09:00 09/30/19 08:09 Rocaltrol PO Not Given DAILY [facility] Cholestyramine Resin 4 gm 09/30/19 08:00 09/30/19 08:08 Questran Light PO Not Given BID[facility] Cinacalcet 30 mg 09/29/19 21:00 09/30/19 08:09 Sensipar PO Not Given BID [facility] Cyanocobalamin 1,000 mcg 09/30/19 09:00 09/30/19 08:09 Vitamin B-12 PO Not Given DAILY [facility] Dronabinol 5 mg 09/29/19 21:00 09/30/19 00:00 Marinol PO 5 mg HS [facility] Administration Enoxaparin Sodium 30 mg 09/30/19 09:00 09/30/19 08:09 Lovenox SC Not Given 0900 [facility] Famotidine 20 mg 09/30/19 09:00 09/30/19 08:09 Pepcid PO Not Given DAILY [facility] Hydralazine HCl 50 mg 09/29/19 21:00 09/30/19 08:07 Apresoline PO 50 mg TID [facility] Administration Levothyroxine Sodium 50 mcg 09/30/19 06:00 09/30/19 07:24 Synthroid PO Not Given 0600 [facility] Magnesium Oxide 400 mg 09/29/19 21:00 09/30/19 08:09 Magnesium Oxide PO Not Given BID [facility] Patiromer Calcium 0 each 09/30/19 09:00 09/30/19 11:03 Sorbitex [Veltassa] PO Not Given 8.4 Gm DAILY [facility] Prednisone 5 mg 09/30/19 09:00 09/30/19 08:11 Prednisone PO 5 mg DAILY [facility] Administration Sodium Bicarbonate 650 mg 09/29/19 21:00 09/30/19 08:12 Bicarbonate, Sodium PO Not Given TID [facility] Sodium Chloride 10 ml 09/30/19 09:00 09/30/19 08:57 Flush - Normal Saline IVF Not Given Q12HR [facility] Tacrolimus 3 mg 09/29/19 21:00 09/30/19 08:11 Prograf PO 3 mg BID [facility] Administration - Exam General Appearance: NAD, awake alert Eye: PERRL, anicteric sclera ENT: normocephalic atraumatic, no oropharyngeal lesions Neck: supple, symmetric, no JVD, no thyromegaly Heart: RRR, no gallops, no rubs, normal peripheral pulses Respiratory: CTAB, no wheezes, no rales, no ronchi, normal chest expansion Gastrointestinal: soft, non-tender, non-distended, normal bowel sounds, no palpable masses, no hepatomegaly Extremities: no cyanosis, no clubbing, no edema Skin: normal turgor, no lesions Neurological: cranial nerve grossly intact, no new deficit Musculoskeletal: generalized weakness Psychiatric: normal affect, A&O x 3 Hosp A/P (1) ESRD (end stage renal disease) on dialysis Code(s): N18.6 - END STAGE RENAL DISEASE; Z99.2 - DEPENDENCE ON RENAL DIALYSIS Status: Chronic Plan: HD initiated this hospital stay, continue HD per Renal service, CM for outpt coordination (2) Hyperkalemia Code(s): E87.5 - HYPERKALEMIA Status: Acute Plan: Resolved with initiation of HD, serial monitoring (3) Anemia in chronic kidney disease Code(s): N18.9 - CHRONIC KIDNEY DISEASE, UNSPECIFIED; D63.1 - ANEMIA IN CHRONIC KIDNEY DISEASE Status: Chronic Qualifiers: Chronic kidney disease stage: stage 4 (severe) Qualified Code(s): N18.4 - Chronic kidney disease, stage 4 (severe); D63.1 - Anemia in chronic kidney disease Plan: EGD for workup, continue Iron supplementation, Epogen, serial H/H monitoring (4) CAD (coronary artery disease) Code(s): I25.10 - ATHSCL HEART DISEASE OF [place] CORONARY ARTERY W/O ANG PCTRS Status: Chronic Qualifiers: Coronary Disease-Associated Artery/Lesion type: [place] artery [place] vs. 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
--- NOTE | 2019-09-30 17:13 | OP ---
DATE OF PROCEDURE: 09/30/2019 PROCEDURE PERFORMED: Esophagogastroduodenoscopy with biopsy. PREOPERATIVE DIAGNOSES: Abdominal pain, recurrent dry heaving, nausea, and poor appetite. POSTOPERATIVE DIAGNOSES: 1. Normal esophageal mucosa. 2. Small hiatus hernia. 3. Occasional discrete erythematous patches in the body and gastric antrum, most likely gastritis. 4. Normal duodenal bulb, descending duodenum shows darkly pigmented mucosa. This was biopsied. DESCRIPTION OF PROCEDURE: The patient was placed on his left lateral position and was given sedation by Anesthesia Department. A [employer] video gastroscope under direct vision passed down the oropharynx, past the GE junction into the stomach and subsequently into the descending duodenum. The esophageal mucosa appeared normal. The GE junction, no pathology. A small hiatal hernia. Retroflexion failed to show any pathology in fundus or cardia. The gastric body and antrum showed occasional discrete erythematous spots. The incisura angularis, no lesion seen. The pyloric channel, no pathology. The duodenal bulb, no pathology. The descending duodenum shows darkly pigmented spots throughout . Biopsy was obtained of the area. The stomach decompressed, and the scope removed. RECOMMENDATIONS: 1. Diet as tolerated. 2. Continue dialysis schedule. Job ID: [id number]
[2019-09-30] MEDS: Dronabinol 2.5 MG CAP PO SCH ×2 (20:18)
[2019-10-01 04:41] LABS: Hemoglobin 7.4 g/dL (14.0-18.0); Platelet Count 135 thou/uL (130-400)
[2019-10-01 04:57] LABS: Anion Gap 12 mmol/L (10-20); BUN (Urea Nitrogen) 24 mg/dL (8.4-25.7); Calc. Creatinine Clearance 15 mL/min (70-130); Calcium 7.5 mg/dL (7.8-10.44); Carbon Dioxide 28 mmol/L (23-31); Chloride 103 mmol/L (98-107); Estimated GFR-MDRD 16; Glucose 99 mg/dL (83-110); Sodium 139 mmol/L (136-145)
[2019-10-01] MEDS: Levothyroxine Sodium 50 MCG TAB PO SCH (05:23)
[2019-10-01 05:25] VITALS: BMI 20.7
[2019-10-01] MEDS ORDERED: Iron, Sodium Ferric Gluconate 250 MG in Sodium Chloride 0.9% 100 ML IVPB SCH (08:00)
[2019-10-01] MEDS: Tacrolimus 1 MG CAP PO SCH (08:42)
[2019-10-01] MEDS: Magnesium Oxide 400 MG TAB PO SCH (08:42)
[2019-10-01] MEDS: Famotidine 20 MG TAB PO SCH (08:42)
[2019-10-01] MEDS: predniSONE 5 MG TAB PO SCH (08:43)
[2019-10-01] MEDS: Cinacalcet HCl 30 MG TAB PO SCH (08:43)
[2019-10-01] MEDS: Cyanocobalamin (Vitamin B-12) 1,000 MCG TAB PO SCH (08:43)
[2019-10-01] MEDS: Calcitriol 0.25 MCG CAP PO SCH (08:43)
[2019-10-01] MEDS: azaTHIOprine 50 MG TAB PO SCH (08:45)
[2019-10-01] MEDS: Enoxaparin Sodium 30 MG/0.3 ML SYRINGE SC SCH (08:45)
[2019-10-01] MEDS ORDERED: Amlodipine 10 MG TAB PO SCH (09:00)
[2019-10-01] MEDS ORDERED: EPOETIN ALFA-EPBX (ESRD) 10,000 UNIT/ML VIAL SC SCH (10:18)
[2019-10-01] MEDS ORDERED: EPOETIN ALFA-EPBX (ESRD) 3,000 UNIT/ML VIAL SC SCH (11:00)
[2019-10-01] MEDS ORDERED: EPOETIN ALFA-EPBX (ESRD) 2,000 UNIT/ML VIAL SC SCH (11:00)
--- NOTE | 2019-10-01 11:40 | PRG ---
DATE OF SERVICE: 10/01/2019 SERVICE: Nephrology. SUBJECTIVE: A 73-year-old male seen and managed in followup for management of chronic allograft nephropathy. 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 Reports feeling a lot better with improved appetite. Denied nausea, vomiting, or abdominal pain. He also denied leg edema. OBJECTIVE: VITAL SIGNS: Temperature 98.1, pulse 65, respiratory rate 16, SpO2 of 100% on room air, blood pressure is 160/74. GENERAL: Male patient, in no obvious distress. Afebrile. Anicteric. Acyanotic. HEENT: Normocephalic, atraumatic. Oral mucosa is moist. NECK: Supple, nontender, with no JVD. CARDIOVASCULAR: Regular rhythm and rate. Normal heart sounds 1 and 2. Systolic murmur noted. RESPIRATORY: Good air entry bilaterally with no crackle or rhonchi or use of accessory muscles. GI: Full, soft, nontender, nondistended with normal bowel sounds. EXTREMITIES: Grossly normal looking atraumatic with no edema or erythema. Diffuse muscular atrophy noted. [place] [place] [employer]: Conscious and alert and oriented x3 with appropriate mental status. DIAGNOSTIC DATA: Hemoglobin today is 7.4, up from 6.6 yesterday. Platelet is 135. Renal BMP showed sodium 139, potassium 4.0, chloride 103, CO2 of 28, BUN 24, creatinine 4.32, glucose 99, calcium 7.5. ASSESSMENT: 1. 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 The patient was initiated on hemodialysis due to persistent uremic symptoms. 2. End-stage renal disease, status post renal transplant. 3. Status post renal transplant, on immunosuppressive therapy. 4. Anemia in chronic kidney disease. 5. Hypertension: Control is better but still suboptimal. 6. Possible GI bleeding. EGD, however, was nondiagnostic. PLAN: 1. We will dialyze the patient for 3-1/2 hours today. We will also start IV iron therapy with Procrit for anemia in CKD. 2. We will adjust antihypertensives to get adequate BP control. 3. We will continue immunosuppressive therapies for now. We will repeat CBC tomorrow. If WBC is still low, we will consider discontinuing azathioprine given that the patient is now on hemodialysis. 4. Oral intake as tolerated. 5. We will also start Nepro, that is oral dietary supplementation for protein calorie malnutrition. 6. Other treatment to follow depending on hospital course. Job ID: [id number]
[2019-10-01] MEDS: hydrALAZINE 25 MG TAB PO SCH ×2 (13:51→16:38)
[2019-10-01] MEDS: Atenolol 50 MG TAB PO SCH (13:52)
[2019-10-01] MEDS: Patiromer Calcium Sorbitex [Veltassa] 8.4 GM PO SCH (13:57)
[2019-10-01] MEDS: Cholestyramine/Aspartame 4 gm Packet PO SCH ×2 (13:58→17:35)
[2019-10-01 15:36] VITALS: BP 132/61; TEMP 97.6
--- NOTE | 2019-10-02 13:07 | DIS ---
DATE OF ADMISSION: 09/30/2019 DATE OF DISCHARGE: 10/01/2019 HOSPITAL COURSE: Mr. Marsh is a 73-year-old male with a medical history of end-stage renal disease status post renal transplant, complicated with chronic allograft nephropathy, who was admitted due to worsening nausea, vomiting, and poor appetite. He was diagnosed with uremic encephalopathy and dialysis was initiated. The patient had improved as his blood BUN decreased during dialysis. Other problems that also were resolved after dialysis for hyperkalemia and metabolic acidosis. The patient was discharged home hemodynamically stable after outpatient hemodialysis was established. PHYSICAL EXAMINATION: VITAL SIGNS: On the day of discharge, vitals were unremarkable. GENERAL: On exam, he was alert, oriented, in no apparent distress. HEENT: He had right IJ access that appeared clean and noninfected. CARDIAC: Regular rate and rhythm. No murmurs or gallops. LUNGS: Clear to auscultation bilaterally. No rales, wheezing, or rhonchi. EXTREMITIES: No edema. PSYCHIATRIC: Proper mood and affect. Alert and oriented x3. ASSESSMENT AND PLAN: Mr. Marsh is a 73-year-old male with medical history of end-stage renal disease with allograft nephropathy and failure of renal transplant, who presented with uremic encephalopathy and improved after initiation of dialysis. 1. End-stage renal disease, on hemodialysis. The patient presented with elevated BUN and potassium levels. After initiation of dialysis, the patient's symptoms have improved. He was discharged home with followup appointments with Nephrology and establishment of hemodialysis centre. 2. Hyperkalemia, resolved after initiation of hemodialysis and remained stable until discharge. 3. Anemia of chronic kidney disease. The patient underwent an EGD for workup because anemia was acute on chronic. EGD findings were unremarkable. The patient was started on Epogen and his blood levels remained within goal on the day of discharge. He will be followed by his service dispatcher and primary care physician. In addition to that, the patient was started on IV iron. Job ID: [id number] [facility]
[2019-10-09] MEDS ORDERED: EPOETIN ALFA-EPBX (ESRD) 10,000 UNIT/ML VIAL SC SCH (09:00)
== END 2019-10-01 17:55 | disposition home or self-care (01) | DRG 698 ==
LOC: SDC 08:52 → 2SW 14:15 → OBSVTOIN 09-30 12:30 → 2NO 09-30 16:34
PROVIDERS: ADMIT Hospitalist; ATTEND Hospitalist
PROC: 0DB98ZX Excision of Duodenum, Via Natural or Artificial Opening Endoscopic, Diagnostic (ICD-10-PCS; principal; 2019-09-30)
PROC: 5A1D70Z Performance of Urinary Filtration, Intermittent, Less than 6 Hours Per Day (ICD-10-PCS; 2019-10-01)
DX: T86.12 Kidney transplant failure (principal); N18.6 End stage renal disease; E87.2 Acidosis; I12.0 Hypertensive chronic kidney disease with stage 5 chronic kidney disease or end stage renal disease; Z94.0 Kidney transplant status; E11.21 Type 2 diabetes mellitus with diabetic nephropathy; E03.9 Hypothyroidism, unspecified; Z85.038 Personal history of other malignant neoplasm of large intestine; Z85.46 Personal history of malignant neoplasm of prostate; Z85.048 Personal history of other malignant neoplasm of rectum, rectosigmoid junction, and anus; E87.5 Hyperkalemia; D63.1 Anemia in chronic kidney disease; K44.9 Diaphragmatic hernia without obstruction or gangrene; Y83.8 Other surgical procedures as the cause of abnormal reaction of the patient, or of later complication, without mention of misadventure at the time of the procedure
CPT/HCPCS: 36415; 36416; 71046; 80048; 80069; 82533; 82728; 83540; 83550; 84443; 85014; 85018; 85025; 85049; 86704; 86706; 86803; 87340; 88305; J0360; J1650; J2704; J2916; J3490; J7500; J7507; J7512; Q0167; Q5105

== ENCOUNTER 2022-06-04 15:17 | Outpatient (CLI) | payer MEDICARE | END 2022-06-04 15:18 | disposition home or self-care (01) | LOC: BICRAD 15:17 | PROVIDERS: ATTEND Nurse Practitioner Family | DX: I10 Essential (primary) hypertension (principal); Z99.2 Dependence on renal dialysis | CPT/HCPCS: 71046 ==

== ENCOUNTER 2022-08-05 07:32 | Inpatient (IN) | payer MEDICARE ==
[2022-08-05 08:35] LABS: #Eosinphils 0.4 thou/uL (0.0-0.7); #Lymphocytes 1.2 thou/uL (1.20-3.40); #Monocytes 0.9 thou/uL (0.11-0.59); #Neutrophils 5.1 thou/uL (1.40-6.50); %Basophils 0.1 % (0.0-1.0); %Eosinophils 5.1 % (0.0-10.0); %Lymphocytes 15.7 % (21.0-51.0); %Monocytes 12.4 % (0.0-10.0); %Neutrophils 66.7 % (42.0-75.0); Hemoglobin 10.4 g/dL (14.0-18.0); Mean Corpuscular HGB CONC 29.4 g/dL (32.0-36.0); Mean Corpuscular Hemoglobin 29.1 pg (27.0-31.0); Mean Corpuscular Volume 98.9 fl (78.0-98.0); Mean Platelet Volume 9.5 fL (7.4-10.4); Platelet Count 114 10x3/uL (130-400); RBC Distribution Width 18.8 % (11.5-14.5); Red Blood Cell (RBC) Count 3.57 mill/uL (4.70-6.10); White Blood Cell (WBC) Count 7.6 10x3/uL (4.8-10.8)
[2022-08-05 08:42] LABS: ALT (SGPT) 7 U/L (8-55); AST (SGOT) 11 U/L (5-34); Alkaline Phosphatase 91 U/L (40-110); Anion Gap 16 mmol/L (10-20); BUN (Urea Nitrogen) 37 mg/dL (8.4-25.7); Bilirubin, Total 0.8 mg/dL (0.2-1.2); Calc. Creatinine Clearance 0 mL/min (70-130); Calcium 8.9 mg/dL (7.8-10.44); Carbon Dioxide 21 mmol/L (23-31); Chloride 103 mmol/L (98-107); Estimated GFR 4; Globulin 2.9 g/dL (2.4-3.5); Glucose 80 mg/dL (83-110); Protein, Total 6.9 g/dL (5.8-8.1); Sodium 135 mmol/L (136-145)
[2022-08-05 09:03] LABS: CKMB 0.9 ng/mL (0-6.6)
[2022-08-05] MEDS ORDERED: Ondansetron ODT 4 MG TAB PO PRN (10:03)
[2022-08-05] MEDS ORDERED: Ondansetron PF 4 MG/2 ML Vial IVP PRN (10:03)
[2022-08-05] MEDS ORDERED: HumaLOG 300 UNITS/3 ML VIAL SC PRN ×2 (10:36)
[2022-08-05] MEDS ORDERED: Dextrose 50% Abboject 50 ML SYRINGE SLOW IVP PRN (10:36)
[2022-08-05] MEDS ORDERED: Dextrose 5% in Water 1,000 ML IV PRN (10:36)
[2022-08-05 11:48] LABS: Troponin I 0.033 ng/mL (< 0.028)
[2022-08-05 12:10] LABS: Magnesium 1.9 mg/dL (1.6-2.6)
[2022-08-05] MEDS ORDERED: Iopamidol-370 76% 500 ML 1 ML ONE (13:45)
[2022-08-05 14:32] LABS: Troponin I 0.028 ng/mL (< 0.028)
[2022-08-05] MEDS ORDERED: Acetaminophen 325 MG TAB ONE (14:38)
[2022-08-05] MEDS ORDERED: Nitroglycerin 0.4 MG TAB (25 Tab Bottle) SL PRN (15:28)
[2022-08-05 18:41] LABS: SARS-CoV-2 NAA Rapid Test Not Detected (NotDetected)
[2022-08-05 22:22] VITALS: BMI 22.6
[2022-08-05] MEDS: Carvedilol 6.25 MG TAB PO SCH (22:37)
[2022-08-05] MEDS: Sevelamer Carbonate 800 MG TAB PO SCH (22:37)
[2022-08-05] MEDS: Atorvastatin Calcium 40 MG TAB PO SCH (22:40)
[2022-08-05] MEDS: Losartan 25 MG TAB PO SCH (22:40)
[2022-08-05] MEDS: Cholestyramine/Aspartame 4 gm Packet PO SCH (23:31)
[2022-08-06] MEDS: Levothyroxine Sodium 50 MCG TAB PO SCH (05:30)
[2022-08-06 05:45] LABS: Anion Gap 18 mmol/L (10-20); BUN (Urea Nitrogen) 51 mg/dL (8.4-25.7); Calc. Creatinine Clearance 5 mL/min (70-130); Calcium 9.1 mg/dL (7.8-10.44); Carbon Dioxide 22 mmol/L (23-31); Cardiac Risk 2.3 (Less than 4.5); Chloride 101 mmol/L (98-107); Cholesterol 77 mg/dl (< 200 Desired); Estimated GFR 3; Glucose 77 mg/dL (83-110); HDL Cholesterol 34 mg/dL (>60 Neg Risk); LDL Cholesterol, Calculated 32 mg/dL; Potassium 5.9 mmol/L (3.5-5.1); Sodium 135 mmol/L (136-145); Triglycerides 53 mg/dL (Less than 150)
[2022-08-06 05:53] LABS: #Eosinphils 0.3 thou/uL (0.0-0.7); #Lymphocytes 1.2 thou/uL (1.20-3.40); #Monocytes 0.8 thou/uL (0.11-0.59); #Neutrophils 4.3 thou/uL (1.40-6.50); %Basophils 0.2 % (0.0-1.0); %Eosinophils 4.8 % (0.0-10.0); %Lymphocytes 18.3 % (21.0-51.0); %Monocytes 11.2 % (0.0-10.0); %Neutrophils 65.4 % (42.0-75.0); Hemoglobin 10.3 g/dL (14.0-18.0); Mean Corpuscular HGB CONC 29.1 g/dL (32.0-36.0); Mean Corpuscular Hemoglobin 28.6 pg (27.0-31.0); Mean Corpuscular Volume 98.4 fl (78.0-98.0); Mean Platelet Volume 9.8 fL (7.4-10.4); Platelet Count 111 10x3/uL (130-400); RBC Distribution Width 18.6 % (11.5-14.5); White Blood Cell (WBC) Count 6.6 10x3/uL (4.8-10.8)
[2022-08-06] MEDS ORDERED: Dextrose 50% Abboject 50 ML SYRINGE SLOW IVP SCH (06:45)
[2022-08-06] MEDS ORDERED: Insulin Regular 300 UNITS/3 ML VIAL IVP SCH (06:45)
[2022-08-06] MEDS: Sevelamer Carbonate 800 MG TAB PO SCH ×3 (08:20→16:57)
[2022-08-06] MEDS ORDERED: Aspirin Chewable 81 MG TAB PO SCH (09:00)
[2022-08-06] MEDS: Aspirin Chewable 81 MG TAB PO SCH (14:23)
[2022-08-06] MEDS: Clopidogrel Bisulfate 75 MG TAB PO SCH (14:23)
[2022-08-06] MEDS: Cholecalciferol 1,000 UNITS (25 MCG) TAB PO SCH (14:23)
[2022-08-06] MEDS: Cyanocobalamin (Vitamin B-12) 1,000 MCG TAB PO SCH (14:24)
[2022-08-06] MEDS: Folic Acid 1 MG TAB PO SCH (14:24)
[2022-08-06] MEDS: Losartan 25 MG TAB PO SCH ×2 (14:25→22:18)
[2022-08-06] MEDS: Magnesium Oxide 400 MG TAB PO SCH (14:25)
[2022-08-06] MEDS: predniSONE 5 MG TAB PO SCH (14:25)
[2022-08-06] MEDS: Carvedilol 6.25 MG TAB PO SCH ×2 (14:25→22:18)
[2022-08-06] MEDS: Ascorbic Acid 500 mg Chewable Tablet PO SCH (14:25)
[2022-08-06] MEDS: Cinacalcet HCl 30 MG TAB PO SCH (14:29)
[2022-08-06] MEDS: Cholestyramine/Aspartame 4 gm Packet PO SCH ×2 (14:35→22:18)
[2022-08-06] MEDS: Acetaminophen 325 MG TAB PO PRN (14:38)
[2022-08-06 15:42] LABS: HBSAB Concentration Less than 8.00 mIU/mL; HBSAg Index 0.37 S/CO (0-0.99); Hep B Surf AB Non-Reactive (NonReactive); Hep B Surf Ag Non-Reactive S/CO (NonReactive)
[2022-08-06] MEDS: Atorvastatin Calcium 40 MG TAB PO SCH (22:19)
[2022-08-07 05:24] LABS: #Eosinphils 0.3 thou/uL (0.0-0.7); #Lymphocytes 1.2 thou/uL (1.20-3.40); #Monocytes 0.7 thou/uL (0.11-0.59); #Neutrophils 3.8 thou/uL (1.40-6.50); %Basophils 0.4 % (0.0-1.0); %Eosinophils 4.2 % (0.0-10.0); %Lymphocytes 19.8 % (21.0-51.0); %Monocytes 11.9 % (0.0-10.0); %Neutrophils 63.7 % (42.0-75.0); Hemoglobin 10.9 g/dL (14.0-18.0); Mean Corpuscular HGB CONC 30.4 g/dL (32.0-36.0); Mean Corpuscular Hemoglobin 29.9 pg (27.0-31.0); Mean Corpuscular Volume 98.4 fl (78.0-98.0); Mean Platelet Volume 9.9 fL (7.4-10.4); Platelet Count 117 10x3/uL (130-400); RBC Distribution Width 18.8 % (11.5-14.5); Red Blood Cell (RBC) Count 3.65 mill/uL (4.70-6.10)
[2022-08-07 05:43] LABS: Anion Gap 18 mmol/L (10-20); BUN (Urea Nitrogen) 24 mg/dL (8.4-25.7); Calc. Creatinine Clearance 8 mL/min (70-130); Calcium 9.2 mg/dL (7.8-10.44); Carbon Dioxide 25 mmol/L (23-31); Chloride 98 mmol/L (98-107); Estimated GFR 6; Glucose 79 mg/dL (83-110); Potassium 4.6 mmol/L (3.5-5.1); Sodium 136 mmol/L (136-145)
[2022-08-07] MEDS: Levothyroxine Sodium 50 MCG TAB PO SCH (06:20)
[2022-08-07] MEDS ORDERED: ADENOSINE 60 MG/20 ML VIAL ONE (10:51)
[2022-08-07] MEDS: Sevelamer Carbonate 800 MG TAB PO SCH ×3 (11:18→16:58)
[2022-08-07] MEDS: Cinacalcet HCl 30 MG TAB PO SCH (11:18)
[2022-08-07] MEDS: Cholestyramine/Aspartame 4 gm Packet PO SCH ×2 (11:18→21:58)
[2022-08-07] MEDS: Ascorbic Acid 500 mg Chewable Tablet PO SCH (11:19)
[2022-08-07] MEDS: Aspirin Chewable 81 MG TAB PO SCH (11:19)
[2022-08-07] MEDS: Cholecalciferol 1,000 UNITS (25 MCG) TAB PO SCH (11:20)
[2022-08-07] MEDS: Cyanocobalamin (Vitamin B-12) 1,000 MCG TAB PO SCH (11:20)
[2022-08-07] MEDS: Losartan 25 MG TAB PO SCH ×2 (11:20→21:58)
[2022-08-07] MEDS: Folic Acid 1 MG TAB PO SCH (11:20)
[2022-08-07] MEDS: Clopidogrel Bisulfate 75 MG TAB PO SCH (11:20)
[2022-08-07] MEDS: Carvedilol 6.25 MG TAB PO SCH ×2 (11:21→21:58)
[2022-08-07] MEDS: Magnesium Oxide 400 MG TAB PO SCH (11:21)
[2022-08-07] MEDS: predniSONE 5 MG TAB PO SCH (11:21)
[2022-08-07] MEDS ORDERED: Iopamidol-370 76% 500 ML 1 ML ONE (11:24)
[2022-08-07] MEDS: Atorvastatin Calcium 40 MG TAB PO SCH (21:58)
[2022-08-08] MEDS ORDERED: cloNIDine 0.1 MG TAB PO SCH (04:15)
[2022-08-08] MEDS: Acetaminophen 325 MG TAB PO PRN (04:28)
[2022-08-08 05:48] LABS: #Eosinphils 0.2 thou/uL (0.0-0.7); #Lymphocytes 1.3 thou/uL (1.20-3.40); #Monocytes 0.6 thou/uL (0.11-0.59); #Neutrophils 3.1 thou/uL (1.40-6.50); %Basophils 0.3 % (0.0-1.0); %Eosinophils 4.2 % (0.0-10.0); %Lymphocytes 25.7 % (21.0-51.0); %Monocytes 10.7 % (0.0-10.0); Hemoglobin 10.2 g/dL (14.0-18.0); Mean Corpuscular HGB CONC 30.6 g/dL (32.0-36.0); Mean Corpuscular Hemoglobin 29.4 pg (27.0-31.0); Mean Corpuscular Volume 96.1 fl (78.0-98.0); Mean Platelet Volume 9.4 fL (7.4-10.4); Platelet Count 115 10x3/uL (130-400); Red Blood Cell (RBC) Count 3.46 mill/uL (4.70-6.10); White Blood Cell (WBC) Count 5.2 10x3/uL (4.8-10.8)
[2022-08-08] MEDS: Levothyroxine Sodium 50 MCG TAB PO SCH (05:57)
[2022-08-08 05:59] LABS: Anion Gap 18 mmol/L (10-20); BUN (Urea Nitrogen) 34 mg/dL (8.4-25.7); Calc. Creatinine Clearance 6 mL/min (70-130); Calcium 8.8 mg/dL (7.8-10.44); Carbon Dioxide 22 mmol/L (23-31); Chloride 97 mmol/L (98-107); Estimated GFR 5; Glucose 72 mg/dL (83-110); Sodium 132 mmol/L (136-145)
[2022-08-08] MEDS: Ascorbic Acid 500 mg Chewable Tablet PO SCH (08:36)
[2022-08-08] MEDS: Aspirin Chewable 81 MG TAB PO SCH (08:36)
[2022-08-08] MEDS: Sevelamer Carbonate 800 MG TAB PO SCH ×2 (08:36→14:29)
[2022-08-08] MEDS: Carvedilol 6.25 MG TAB PO SCH (08:37)
[2022-08-08] MEDS: Cholecalciferol 1,000 UNITS (25 MCG) TAB PO SCH (08:37)
[2022-08-08] MEDS: Cyanocobalamin (Vitamin B-12) 1,000 MCG TAB PO SCH (08:38)
[2022-08-08] MEDS: Folic Acid 1 MG TAB PO SCH (08:38)
[2022-08-08] MEDS: Clopidogrel Bisulfate 75 MG TAB PO SCH (08:38)
[2022-08-08] MEDS: Magnesium Oxide 400 MG TAB PO SCH (08:39)
[2022-08-08] MEDS: Losartan 25 MG TAB PO SCH (08:39)
[2022-08-08] MEDS: predniSONE 5 MG TAB PO SCH (08:40)
[2022-08-08 14:12] VITALS: BP 158/72; TEMP 98
[2022-08-08] MEDS: Cholestyramine/Aspartame 4 gm Packet PO SCH (14:30)
[2022-08-08] MEDS: Cinacalcet HCl 30 MG TAB PO SCH (14:30)
== END 2022-08-08 15:10 | disposition home or self-care (01) | DRG 313 ==
LOC: ERS 07:32 → ERHOLD 10:03 → 2SW 18:16 → OBSVTOIN 08-07 09:43
PROVIDERS: ADMIT Internal Medicine; ATTEND Internal Medicine
PROC: 5A1D70Z Performance of Urinary Filtration, Intermittent, Less than 6 Hours Per Day (ICD-10-PCS; principal; 2022-08-06)
DX: R07.89 Other chest pain (principal); Z20.822 Contact with and (suspected) exposure to COVID-19; N18.6 End stage renal disease; E87.1 Hypo-osmolality and hyponatremia; T86.19 Other complication of kidney transplant; N25.81 Secondary hyperparathyroidism of renal origin; I13.2 Hypertensive heart and chronic kidney disease with heart failure and with stage 5 chronic kidney disease, or end stage renal disease; F17.210 Nicotine dependence, cigarettes, uncomplicated; I25.10 Atherosclerotic heart disease of native coronary artery without angina pectoris; I50.9 Heart failure, unspecified; K52.9 Noninfective gastroenteritis and colitis, unspecified; Y83.0 Surgical operation with transplant of whole organ as the cause of abnormal reaction of the patient, or of later complication, without mention of misadventure at the time of the procedure; E87.5 Hyperkalemia; D63.1 Anemia in chronic kidney disease; E11.22 Type 2 diabetes mellitus with diabetic chronic kidney disease; Z88.1 Allergy status to other antibiotic agents; Z95.0 Presence of cardiac pacemaker; Z95.5 Presence of coronary angioplasty implant and graft; Z85.46 Personal history of malignant neoplasm of prostate; Z85.038 Personal history of other malignant neoplasm of large intestine; Z85.528 Personal history of other malignant neoplasm of kidney; Z90.5 Acquired absence of kidney; Z79.899 Other long term (current) drug therapy; Z79.890 Hormone replacement therapy; Z79.51 Long term (current) use of inhaled steroids; Z90.49 Acquired absence of other specified parts of digestive tract; Z99.2 Dependence on renal dialysis
CPT/HCPCS: 36415; 36416; 71045; 71275; 74174; 78452; 80048; 80053; 80061; 82553; 83735; 83880; 84443; 84484; 85025; 85379; 86706; 87340; 90935; 93005; 93017; 93306; 96374; A9500; G0257; G0378; J0153; J1815; J7512; J7999; Q9967; U0002

== ENCOUNTER 2022-08-27 05:32 | Emergency (ER) | payer MEDICARE ==
[2022-08-27 06:21] LABS: #Eosinphils 0.4 thou/uL (0.0-0.7); #Lymphocytes 1.1 thou/uL (1.20-3.40); #Monocytes 0.8 thou/uL (0.11-0.59); #Neutrophils 4.1 thou/uL (1.40-6.50); %Basophils 0.2 % (0.0-1.0); %Eosinophils 5.6 % (0.0-10.0); %Lymphocytes 17.7 % (21.0-51.0); %Monocytes 12.8 % (0.0-10.0); %Neutrophils 63.7 % (42.0-75.0); Hemoglobin 8.5 g/dL (14.0-18.0); Mean Corpuscular HGB CONC 31.1 g/dL (32.0-36.0); Mean Corpuscular Hemoglobin 30.2 pg (27.0-31.0); Mean Corpuscular Volume 96.9 fl (78.0-98.0); Platelet Count 189 10x3/uL (130-400); RBC Distribution Width 18.2 % (11.5-14.5); Red Blood Cell (RBC) Count 2.81 mill/uL (4.70-6.10); White Blood Cell (WBC) Count 6.4 10x3/uL (4.8-10.8)
[2022-08-27 06:41] LABS: ALT (SGPT) Less than 7 U/L (8-55); AST (SGOT) 10 U/L (5-34); Alkaline Phosphatase 106 U/L (40-110); Anion Gap 18 mmol/L (10-20); BUN (Urea Nitrogen) 26 mg/dL (8.4-25.7); Bilirubin, Total 0.8 mg/dL (0.2-1.2); Calc. Creatinine Clearance 0 mL/min (70-130); Calcium 9.7 mg/dL (7.8-10.44); Carbon Dioxide 22 mmol/L (23-31); Chloride 102 mmol/L (98-107); Estimated GFR 4; Globulin 3.1 g/dL (2.4-3.5); Glucose 90 mg/dL (83-110); Potassium 4.5 mmol/L (3.5-5.1); Protein, Total 7.1 g/dL (5.8-8.1); Sodium 137 mmol/L (136-145)
[2022-08-27] MEDS ORDERED: Iopamidol-370 76% 500 ML 1 ML ONE (15:24)
== END 2022-08-27 09:40 | disposition home or self-care (01) ==
LOC: ERS 05:32
DX: R19.7 Diarrhea, unspecified (principal); I10 Essential (primary) hypertension; E11.9 Type 2 diabetes mellitus without complications; Z87.891 Personal history of nicotine dependence
CPT/HCPCS: 36415; 74177; 80053; 83690; 85025; Q9967

== ENCOUNTER 2022-08-30 09:11 | Outpatient (CLI) | payer MEDICARE | END 2022-08-30 09:12 | disposition home or self-care (01) | LOC: NM 09:11 | PROVIDERS: ATTEND Internal Medicine Hematology & Oncology | DX: C18.9 Malignant neoplasm of colon, unspecified (principal); M89.8X8 Other specified disorders of bone, other site | CPT/HCPCS: 78306; A9503 ==

== ENCOUNTER 2022-09-18 15:57 | Outpatient (CLI) | payer MEDICARE | END 2022-09-18 15:58 | disposition home or self-care (01) | LOC: BICRAD 15:57 | PROVIDERS: ATTEND Nurse Practitioner Family | DX: R07.9 Chest pain, unspecified (principal) | CPT/HCPCS: 71046 ==

== ENCOUNTER 2022-09-18 19:45 | Inpatient (IN) | payer MEDICARE ==
[2022-09-18 20:22] LABS: #Eosinphils 0.2 thou/uL (0.0-0.7); #Monocytes 0.6 thou/uL (0.11-0.59); #Neutrophils 3.2 thou/uL (1.40-6.50); %Basophils 0.8 % (0.0-1.0); %Eosinophils 3.9 % (0.0-10.0); %Lymphocytes 19.4 % (21.0-51.0); %Monocytes 11.3 % (0.0-10.0); %Neutrophils 64.6 % (42.0-75.0); Hemoglobin 9.5 g/dL (14.0-18.0); Mean Corpuscular HGB CONC 31.1 g/dL (32.0-36.0); Mean Corpuscular Hemoglobin 28.6 pg (27.0-31.0); Mean Corpuscular Volume 92.1 fl (78.0-98.0); Mean Platelet Volume 9.1 fL (7.4-10.4); Platelet Count 141 10x3/uL (130-400); RBC Distribution Width 17.2 % (11.5-14.5); Red Blood Cell (RBC) Count 3.33 mill/uL (4.70-6.10)
[2022-09-18 20:40] LABS: ALT (SGPT) Less than 7 U/L (8-55); AST (SGOT) 8 U/L (5-34); Albumin 4.1 g/dL (3.4-4.8); Alkaline Phosphatase 89 U/L (40-110); Anion Gap 16 mmol/L (10-20); BUN (Urea Nitrogen) 29 mg/dL (8.4-25.7); Bilirubin, Total 0.7 mg/dL (0.2-1.2); Calc. Creatinine Clearance 0 mL/min (70-130); Calcium 9.3 mg/dL (7.8-10.44); Carbon Dioxide 29 mmol/L (23-31); Chloride 100 mmol/L (98-107); Estimated GFR 5; Globulin 3.2 g/dL (2.4-3.5); Glucose 102 mg/dL (83-110); Potassium 4.8 mmol/L (3.5-5.1); Protein, Total 7.3 g/dL (5.8-8.1); Sodium 140 mmol/L (136-145)
[2022-09-18] MEDS ORDERED: Aspirin 325 MG TAB ONE (20:42)
[2022-09-18 21:02] LABS: CKMB 1.1 ng/mL (0-6.6)
[2022-09-18] MEDS ORDERED: Nitroglycerin 0.4 MG TAB 1 EACH ONE (22:33)
[2022-09-19] MEDS ORDERED: Acetaminophen 325 MG TAB PO PRN (00:03)
[2022-09-19] MEDS ORDERED: Insulin Regular 300 UNITS/3 ML VIAL SC PRN ×2 (00:03)
[2022-09-19] MEDS ORDERED: Dextrose 5% in Water 1,000 ML IV PRN (00:03)
[2022-09-19] MEDS ORDERED: Dextrose 50% Abboject 50 ML SYRINGE SLOW IVP PRN (00:03)
[2022-09-19] MEDS ORDERED: Ondansetron PF 4 MG/2 ML Vial IVP PRN (00:03)
[2022-09-19] MEDS ORDERED: Ondansetron ODT 4 MG TAB PO PRN (00:03)
[2022-09-19] MEDS ORDERED: hydrALAZINE 25 MG TAB PO SCH (00:30)
[2022-09-19] MEDS ORDERED: Ipratropium/Albuterol 3 ML NEB NEB SCH (00:30)
[2022-09-19 00:47] LABS: Troponin I 0.057 ng/mL (< 0.028)
[2022-09-19 00:50] LABS: Magnesium 2.1 mg/dL (1.6-2.6)
[2022-09-19 02:25] LABS: SARS-CoV-2 NAA Rapid Test Not Detected (NotDetected)
[2022-09-19 05:12] LABS: #Eosinphils 0.2 thou/uL (0.0-0.7); #Monocytes 0.5 thou/uL (0.11-0.59); #Neutrophils 3.2 thou/uL (1.40-6.50); %Basophils 0.3 % (0.0-1.0); %Eosinophils 4.6 % (0.0-10.0); %Lymphocytes 20.7 % (21.0-51.0); %Monocytes 10.9 % (0.0-10.0); %Neutrophils 63.5 % (42.0-75.0); Mean Corpuscular HGB CONC 29.7 g/dL (32.0-36.0); Mean Corpuscular Hemoglobin 27.9 pg (27.0-31.0); Mean Platelet Volume 9.5 fL (7.4-10.4); Platelet Count 127 10x3/uL (130-400); RBC Distribution Width 17.2 % (11.5-14.5); Red Blood Cell (RBC) Count 3.24 mill/uL (4.70-6.10)
[2022-09-19 05:23] LABS: Anion Gap 18 mmol/L (10-20); BUN (Urea Nitrogen) 32 mg/dL (8.4-25.7); Calc. Creatinine Clearance 0 mL/min (70-130); Calcium 8.7 mg/dL (7.8-10.44); Carbon Dioxide 24 mmol/L (23-31); Chloride 102 mmol/L (98-107); Estimated GFR 5; Glucose 64 mg/dL (83-110); Potassium 4.9 mmol/L (3.5-5.1); Sodium 139 mmol/L (136-145); Troponin I 0.055 ng/mL (< 0.028)
[2022-09-19] MEDS ORDERED: Nitroglycerin 0.4 MG TAB (25 Tab Bottle) SL PRN (07:42)
[2022-09-19] MEDS ORDERED: Morphine 2 MG/ML VIAL SLOW IVP PRN (07:46)
[2022-09-19] MEDS ORDERED: Nitroglycerin 0.4 MG TAB 1 EACH ONE (07:50)
[2022-09-19 08:40] LABS: Troponin I 0.054 ng/mL (< 0.028)
[2022-09-19 08:43] LABS: HBSAB Concentration Less than 8.00 mIU/mL; HBSAg Index 0.28 S/CO (0-0.99); Hep B Core Total Ab Non-Reactive (NonReactive); Hep B Core Total Index 0.09 S/CO (0-0.79); Hep B Surf AB Non-Reactive (NonReactive); Hep B Surf Ag Non-Reactive S/CO (NonReactive); Hep C IgG Ab Non-Reactive (NonReactive); Hep C Index 0.09 S/CO (0-0.79)
[2022-09-19 14:25] VITALS: BMI 21.5
[2022-09-19] MEDS: Carvedilol 6.25 MG TAB PO SCH ×2 (14:39→19:18)
[2022-09-19] MEDS: Aspirin Chewable 81 MG TAB PO SCH (14:43)
[2022-09-19] MEDS: Clopidogrel Bisulfate 75 MG TAB PO SCH (14:43)
[2022-09-19] MEDS: Losartan 25 MG TAB PO SCH ×2 (14:43→20:16)
[2022-09-20] MEDS ORDERED: Levothyroxine Sodium 50 MCG TAB PO SCH (08:00)
[2022-09-20] MEDS ORDERED: Losartan 25 MG TAB PO SCH ×3 (09:00→10:30)
[2022-09-20] MEDS: Sevelamer Carbonate 800 MG TAB PO SCH ×3 (09:10→17:43)
[2022-09-20] MEDS: predniSONE 5 MG TAB PO SCH (09:11)
[2022-09-20] MEDS: Aspirin Chewable 81 MG TAB PO SCH (09:11)
[2022-09-20] MEDS: Carvedilol 6.25 MG TAB PO SCH ×3 (09:11→20:35)
[2022-09-20] MEDS: Folic Acid 1 MG TAB PO SCH (09:12)
[2022-09-20] MEDS: Clopidogrel Bisulfate 75 MG TAB PO SCH (09:19)
[2022-09-20] MEDS ORDERED: Communication Order-Pharmacy FS SCH (09:45)
[2022-09-20] MEDS ORDERED: Epoetin (ESRD) 10,000 UNITS/ML VIAL SC SCH (12:15)
[2022-09-20] MEDS ORDERED: Nitroglycerin 0.4 MG TAB (25 Tab Bottle) SL PRN (12:22)
[2022-09-20] MEDS: Cholestyramine/Aspartame 4 gm Packet PO SCH (15:19)
[2022-09-20] MEDS: Atorvastatin Calcium 40 MG TAB PO SCH (20:34)
[2022-09-20] MEDS: Losartan 25 MG TAB PO SCH (20:35)
[2022-09-21 05:18] LABS: #Basophils 0.1 thou/uL (0.0-0.2); #Eosinphils 0.2 thou/uL (0.0-0.7); #Lymphocytes 0.9 thou/uL (1.20-3.40); #Monocytes 0.5 thou/uL (0.11-0.59); #Neutrophils 2.9 thou/uL (1.40-6.50); %Basophils 1.8 % (0.0-1.0); %Eosinophils 3.7 % (0.0-10.0); %Lymphocytes 20.4 % (21.0-51.0); %Monocytes 11.5 % (0.0-10.0); %Neutrophils 62.6 % (42.0-75.0); Hemoglobin 8.7 g/dL (14.0-18.0); Mean Corpuscular HGB CONC 29.6 g/dL (32.0-36.0); Mean Corpuscular Hemoglobin 27.5 pg (27.0-31.0); Mean Corpuscular Volume 92.9 fl (78.0-98.0); Mean Platelet Volume 9.5 fL (7.4-10.4); Platelet Count 138 10x3/uL (130-400); RBC Distribution Width 17.7 % (11.5-14.5); Red Blood Cell (RBC) Count 3.16 mill/uL (4.70-6.10); White Blood Cell (WBC) Count 4.6 10x3/uL (4.8-10.8)
[2022-09-21] MEDS: Carvedilol 6.25 MG TAB PO SCH ×2 (05:20→20:36)
[2022-09-21] MEDS: Levothyroxine Sodium 50 MCG TAB PO SCH (05:21)
[2022-09-21 05:25] LABS: Hemoglobin A1c 3.9 % (4.0-6.0)
[2022-09-21] MEDS: Ascorbic Acid 500 mg Chewable Tablet PO SCH (05:40)
[2022-09-21] MEDS: Cholecalciferol 1,000 UNITS (25 MCG) TAB PO SCH (05:40)
[2022-09-21] MEDS: Aspirin Chewable 81 MG TAB PO SCH (05:41)
[2022-09-21] MEDS: Clopidogrel Bisulfate 75 MG TAB PO SCH (05:41)
[2022-09-21 05:42] LABS: Anion Gap 16 mmol/L (10-20); BUN (Urea Nitrogen) 32 mg/dL (8.4-25.7); Calc. Creatinine Clearance 7 mL/min (70-130); Calcium 9.6 mg/dL (7.8-10.44); Carbon Dioxide 25 mmol/L (23-31); Chloride 103 mmol/L (98-107); Estimated GFR 5; Glucose 84 mg/dL (83-110); Potassium 4.6 mmol/L (3.5-5.1); Sodium 139 mmol/L (136-145)
[2022-09-21] MEDS: Cyanocobalamin (Vitamin B-12) 1,000 MCG TAB PO SCH (05:42)
[2022-09-21] MEDS: Folic Acid 1 MG TAB PO SCH (05:42)
[2022-09-21] MEDS: Magnesium Oxide 400 MG TAB PO SCH (05:42)
[2022-09-21] MEDS: Cinacalcet HCl 30 MG TAB PO SCH (05:43)
[2022-09-21] MEDS: Losartan 25 MG TAB PO SCH ×2 (05:44→20:37)
[2022-09-21] MEDS: predniSONE 5 MG TAB PO SCH (05:47)
[2022-09-21] MEDS ORDERED: Sodium Chloride 0.9% 1,000 ML IV SCH (06:00)
[2022-09-21] MEDS ORDERED: Midazolam HCl 2 mg/2 ml Vial ONE ×4 (06:59→09:57)
[2022-09-21] MEDS ORDERED: Nitroglycerin 100MG/250ML BOT 0 ML ONE (07:00)
[2022-09-21] MEDS ORDERED: Lidocaine 1% (PF) 30 ML VIAL ONE (07:00)
[2022-09-21] MEDS ORDERED: FENTANYL 50 MCG/ML 1 ML VIAL ONE ×2 (07:00→08:33)
[2022-09-21] MEDS ORDERED: Heparin 10,000 UNITS/ 10 ML VIAL ONE (07:00)
[2022-09-21] MEDS ORDERED: Metoprolol Tartrate 5 MG/5 ML VIAL ONE ×3 (08:08→08:50)
[2022-09-21] MEDS ORDERED: hydrALAZINE 20 MG/ML VIAL ONE ×2 (08:32→09:01)
[2022-09-21] MEDS ORDERED: Nitroglycerin 2% Ointment 1 INCH/1 GM Packet ONE (08:38)
[2022-09-21] MEDS ORDERED: Sodium Chloride 0.9% 200 ML IV PRN (08:59)
[2022-09-21] MEDS ORDERED: Acetaminophen/Codeine 30-300mg Tablet PO PRN ×2 (08:59)
[2022-09-21] MEDS ORDERED: Nitroglycerin 0.4 MG TAB (25 Tab Bottle) SL PRN (08:59)
[2022-09-21] MEDS ORDERED: Iopamidol 370 76% 100 ML VIAL ONE (09:10)
[2022-09-21] MEDS ORDERED: Carvedilol 6.25 MG TAB PO SCH (11:45)
[2022-09-21] MEDS: Cholestyramine/Aspartame 4 gm Packet PO SCH ×2 (11:46→23:06)
[2022-09-21] MEDS: Sevelamer Carbonate 800 MG TAB PO SCH ×3 (11:46→18:41)
[2022-09-21] MEDS: hydrALAZINE 25 MG TAB PO SCH ×2 (15:29→20:37)
[2022-09-21] MEDS: Atorvastatin Calcium 40 MG TAB PO SCH (20:36)
[2022-09-22] MEDS: Levothyroxine Sodium 50 MCG TAB PO SCH (05:24)
[2022-09-22 05:36] LABS: #Eosinphils 0.2 thou/uL (0.0-0.7); #Monocytes 0.5 thou/uL (0.11-0.59); #Neutrophils 3.1 thou/uL (1.40-6.50); %Basophils 0.8 % (0.0-1.0); %Eosinophils 3.9 % (0.0-10.0); %Lymphocytes 20.9 % (21.0-51.0); %Monocytes 11.2 % (0.0-10.0); %Neutrophils 63.2 % (42.0-75.0); Hemoglobin 9.1 g/dL (14.0-18.0); Mean Corpuscular HGB CONC 30.8 g/dL (32.0-36.0); Mean Corpuscular Hemoglobin 28.4 pg (27.0-31.0); Mean Corpuscular Volume 92.2 fl (78.0-98.0); Mean Platelet Volume 9.6 fL (7.4-10.4); Platelet Count 155 10x3/uL (130-400); Red Blood Cell (RBC) Count 3.19 mill/uL (4.70-6.10); White Blood Cell (WBC) Count 4.9 10x3/uL (4.8-10.8)
[2022-09-22 05:57] LABS: Anion Gap 15 mmol/L (10-20); BUN (Urea Nitrogen) 18 mg/dL (8.4-25.7); Calc. Creatinine Clearance 9 mL/min (70-130); Calcium 9.3 mg/dL (7.8-10.44); Carbon Dioxide 28 mmol/L (23-31); Chloride 98 mmol/L (98-107); Estimated GFR 8; Glucose 71 mg/dL (83-110); Magnesium 1.9 mg/dL (1.6-2.6); Phosphorus 3.4 mg/dL (2.3-4.7); Potassium 3.7 mmol/L (3.5-5.1); Sodium 137 mmol/L (136-145)
[2022-09-22] MEDS ORDERED: Amlodipine 5 MG TAB PO SCH (09:00)
[2022-09-22] MEDS: Sevelamer Carbonate 800 MG TAB PO SCH ×3 (09:03→17:09)
[2022-09-22] MEDS: Aspirin Chewable 81 MG TAB PO SCH (09:52)
[2022-09-22] MEDS: Cinacalcet HCl 30 MG TAB PO SCH (09:52)
[2022-09-22] MEDS: Cholecalciferol 1,000 UNITS (25 MCG) TAB PO SCH (09:52)
[2022-09-22] MEDS: Ascorbic Acid 500 mg Chewable Tablet PO SCH (09:53)
[2022-09-22] MEDS: Clopidogrel Bisulfate 75 MG TAB PO SCH (09:53)
[2022-09-22] MEDS: Losartan 25 MG TAB PO SCH ×2 (09:53→20:41)
[2022-09-22] MEDS: Folic Acid 1 MG TAB PO SCH (09:54)
[2022-09-22] MEDS: predniSONE 5 MG TAB PO SCH (09:54)
[2022-09-22] MEDS: Carvedilol 6.25 MG TAB PO SCH (09:54)
[2022-09-22] MEDS: Cyanocobalamin (Vitamin B-12) 1,000 MCG TAB PO SCH (09:54)
[2022-09-22] MEDS: Magnesium Oxide 400 MG TAB PO SCH (09:55)
[2022-09-22] MEDS: Cholestyramine/Aspartame 4 gm Packet PO SCH ×2 (11:12→23:13)
[2022-09-22] MEDS: hydrALAZINE 25 MG TAB PO SCH ×2 (14:58→20:40)
[2022-09-22] MEDS: Carvedilol 25 MG TAB PO SCH (20:40)
[2022-09-22] MEDS: Atorvastatin Calcium 40 MG TAB PO SCH (20:40)
[2022-09-23 05:13] LABS: #Eosinphils 0.2 thou/uL (0.0-0.7); #Lymphocytes 1.2 thou/uL (1.20-3.40); #Monocytes 0.6 thou/uL (0.11-0.59); #Neutrophils 3.5 thou/uL (1.40-6.50); %Eosinophils 4.4 % (0.0-10.0); %Monocytes 10.4 % (0.0-10.0); %Neutrophils 63.2 % (42.0-75.0); Hemoglobin 8.4 g/dL (14.0-18.0); Mean Corpuscular HGB CONC 30.3 g/dL (32.0-36.0); Mean Corpuscular Volume 92.3 fl (78.0-98.0); Mean Platelet Volume 9.1 fL (7.4-10.4); Platelet Count 149 10x3/uL (130-400); RBC Distribution Width 18.2 % (11.5-14.5); Red Blood Cell (RBC) Count 3.01 mill/uL (4.70-6.10); White Blood Cell (WBC) Count 5.5 10x3/uL (4.8-10.8)
[2022-09-23 05:43] LABS: ALT (SGPT) Less than 7 U/L (8-55); AST (SGOT) 7 U/L (5-34); Albumin 3.7 g/dL (3.4-4.8); Alkaline Phosphatase 86 U/L (40-110); Anion Gap 15 mmol/L (10-20); BUN (Urea Nitrogen) 29 mg/dL (8.4-25.7); Bilirubin, Total 0.8 mg/dL (0.2-1.2); Calc. Creatinine Clearance 6 mL/min (70-130); Calcium 9.1 mg/dL (7.8-10.44); Carbon Dioxide 26 mmol/L (23-31); Chloride 98 mmol/L (98-107); Estimated GFR 5; Globulin 2.7 g/dL (2.4-3.5); Glucose 84 mg/dL (83-110); Phosphorus 3.4 mg/dL (2.3-4.7); Potassium 4.2 mmol/L (3.5-5.1); Protein, Total 6.4 g/dL (5.8-8.1); Sodium 135 mmol/L (136-145)
[2022-09-23] MEDS: Levothyroxine Sodium 50 MCG TAB PO SCH (06:12)
[2022-09-23] MEDS: Sevelamer Carbonate 800 MG TAB PO SCH ×2 (08:33→12:06)
[2022-09-23] MEDS ORDERED: hydrALAZINE 25 MG TAB PO SCH (09:00)
[2022-09-23] MEDS: Losartan 25 MG TAB PO SCH (09:31)
[2022-09-23] MEDS: Cholecalciferol 1,000 UNITS (25 MCG) TAB PO SCH (09:31)
[2022-09-23] MEDS: Aspirin Chewable 81 MG TAB PO SCH (09:31)
[2022-09-23] MEDS: Ascorbic Acid 500 mg Chewable Tablet PO SCH (09:31)
[2022-09-23] MEDS: predniSONE 5 MG TAB PO SCH (09:32)
[2022-09-23] MEDS: Cyanocobalamin (Vitamin B-12) 1,000 MCG TAB PO SCH (09:32)
[2022-09-23] MEDS: Carvedilol 25 MG TAB PO SCH (09:32)
[2022-09-23] MEDS: Clopidogrel Bisulfate 75 MG TAB PO SCH (09:33)
[2022-09-23] MEDS: Magnesium Oxide 400 MG TAB PO SCH (09:33)
[2022-09-23] MEDS: Cinacalcet HCl 30 MG TAB PO SCH (09:33)
[2022-09-23] MEDS: Folic Acid 1 MG TAB PO SCH (09:33)
[2022-09-23] MEDS: hydrALAZINE 25 MG TAB PO SCH (09:38)
[2022-09-23] MEDS: Cholestyramine/Aspartame 4 gm Packet PO SCH (11:25)
[2022-09-23 12:38] VITALS: BP 136/62; TEMP 98
== END 2022-09-23 12:46 | disposition home or self-care (01) | DRG 286 ==
LOC: ERS 19:45 → ERHOLD 22:13 → 2SW 09-19 11:54 → OBSVTOIN 09-20 10:16
PROVIDERS: ADMIT Internal Medicine; ATTEND Internal Medicine
PROC: 4A023N7 Measurement of Cardiac Sampling and Pressure, Left Heart, Percutaneous Approach (ICD-10-PCS; principal; 2022-09-21)
PROC: B2111ZZ Fluoroscopy of Multiple Coronary Arteries using Low Osmolar Contrast (ICD-10-PCS; 2022-09-21)
PROC: B2151ZZ Fluoroscopy of Left Heart using Low Osmolar Contrast (ICD-10-PCS; 2022-09-21)
PROC: 5A1D70Z Performance of Urinary Filtration, Intermittent, Less than 6 Hours Per Day (ICD-10-PCS; 2022-09-21)
DX: I13.2 Hypertensive heart and chronic kidney disease with heart failure and with stage 5 chronic kidney disease, or end stage renal disease (principal); I50.43 Acute on chronic combined systolic (congestive) and diastolic (congestive) heart failure; J96.00 Acute respiratory failure, unspecified whether with hypoxia or hypercapnia; N18.6 End stage renal disease; N25.81 Secondary hyperparathyroidism of renal origin; I25.110 Atherosclerotic heart disease of native coronary artery with unstable angina pectoris; Z20.822 Contact with and (suspected) exposure to COVID-19; E11.22 Type 2 diabetes mellitus with diabetic chronic kidney disease; D63.1 Anemia in chronic kidney disease; I25.5 Ischemic cardiomyopathy; E03.9 Hypothyroidism, unspecified; Z99.2 Dependence on renal dialysis; Z88.1 Allergy status to other antibiotic agents; Z95.5 Presence of coronary angioplasty implant and graft; Z79.890 Hormone replacement therapy; Z79.52 Long term (current) use of systemic steroids; Z79.899 Other long term (current) drug therapy; Z90.49 Acquired absence of other specified parts of digestive tract; R07.9 Chest pain, unspecified
CPT/HCPCS: 36415; 36416; 71045; 71046; 80048; 80053; 82553; 83036; 83735; 83880; 84100; 84484; 85025; 86704; 86850; 86900; 86901; 93005; 93010; 93458; 99152; 99153; C1769; G0378; J0360; J1644; J2001; J2250; J3010; J7050; J7512; Q4081

== ENCOUNTER 2022-10-11 08:11 | Day surgery (SDC) | payer MEDICARE, OTHER ==
[2022-10-04 13:08] VITALS: BMI 22.8
[2022-10-11 08:39] LABS: PTT 30.4 sec (22.9-36.1); Prothrombin Time 13.9 sec (12.0-14.7)
[2022-10-11 09:00] LABS: #Eosinphils 0.1 thou/uL (0.0-0.7); #Lymphocytes 1.4 thou/uL (1.20-3.40); #Monocytes 0.7 thou/uL (0.11-0.59); #Neutrophils 3.8 thou/uL (1.40-6.50); %Basophils 0.5 % (0.0-1.0); %Eosinophils 1.6 % (0.0-10.0); %Lymphocytes 23.2 % (21.0-51.0); %Monocytes 10.8 % (0.0-10.0); Hemoglobin 11.3 g/dL (14.0-18.0); Mean Corpuscular HGB CONC 29.7 g/dL (32.0-36.0); Mean Corpuscular Volume 97.7 fl (78.0-98.0); Mean Platelet Volume 9.3 fL (7.4-10.4); Platelet Count 161 10x3/uL (130-400); RBC Distribution Width 19.5 % (11.5-14.5); Red Blood Cell (RBC) Count 3.91 mill/uL (4.70-6.10)
[2022-10-11 10:21] LABS: Hypochromia SLIGHT = 6-15 cells (100X) (0-5/hpf); MDiff Complete? YES; Platelet Morphology Comment Appears Adequate; Polychromasia SLIGHT = 2-3 cells (100X) (0-2/hpf)
[2022-10-11 10:53] VITALS: BP 171/77; TEMP 98.3
== END 2022-10-11 11:15 | disposition home or self-care (01) ==
LOC: CT 08:11
PROVIDERS: ATTEND Internal Medicine Hematology & Oncology
PROC: 07DR3ZX Extraction of Iliac Bone Marrow, Percutaneous Approach, Diagnostic (ICD-10-PCS; principal; 2022-10-11)
DX: C79.51 Secondary malignant neoplasm of bone (principal); C61 Malignant neoplasm of prostate; I12.0 Hypertensive chronic kidney disease with stage 5 chronic kidney disease or end stage renal disease; E11.22 Type 2 diabetes mellitus with diabetic chronic kidney disease; N18.6 End stage renal disease; Z85.038 Personal history of other malignant neoplasm of large intestine; Z85.528 Personal history of other malignant neoplasm of kidney; Z87.891 Personal history of nicotine dependence; Z79.02 Long term (current) use of antithrombotics/antiplatelets; Z79.52 Long term (current) use of systemic steroids; Z79.82 Long term (current) use of aspirin; Z79.84 Long term (current) use of oral hypoglycemic drugs; Z79.890 Hormone replacement therapy; Z79.899 Other long term (current) drug therapy; Z88.1 Allergy status to other antibiotic agents; Z90.49 Acquired absence of other specified parts of digestive tract; Z90.5 Acquired absence of kidney; Z95.0 Presence of cardiac pacemaker; Z99.2 Dependence on renal dialysis
CPT/HCPCS: 20225; 77012; 85025; 85610; 85730; 88307; 88341; 88342

== ENCOUNTER 2022-10-24 19:30 | Outpatient (CLI) | payer MEDICARE | END 2022-10-24 19:31 | disposition home or self-care (01) | LOC: SLEEPLAB 19:30 | PROVIDERS: ATTEND Nurse Practitioner Family | DX: G47.33 Obstructive sleep apnea (adult) (pediatric) (principal); R06.83 Snoring; R53.83 Other fatigue; R09.89 Other specified symptoms and signs involving the circulatory and respiratory systems; E11.9 Type 2 diabetes mellitus without complications; K21.9 Gastro-esophageal reflux disease without esophagitis; I11.0 Hypertensive heart disease with heart failure; I50.9 Heart failure, unspecified; I25.10 Atherosclerotic heart disease of native coronary artery without angina pectoris | CPT/HCPCS: 95811 ==

== ENCOUNTER 2022-12-09 23:38 | Inpatient (IN) | payer MEDICARE ==
[2022-12-10 00:31] LABS: #Eosinphils 0.2 thou/uL (0.0-0.7); #Lymphocytes 0.8 thou/uL (1.20-3.40); #Monocytes 0.5 thou/uL (0.11-0.59); #Neutrophils 3.2 thou/uL (1.40-6.50); %Eosinophils 3.5 % (0.0-10.0); %Lymphocytes 16.9 % (21.0-51.0); %Monocytes 9.8 % (0.0-10.0); %Neutrophils 69.7 % (42.0-75.0); Hemoglobin 12.3 g/dL (14.0-18.0); Mean Corpuscular HGB CONC 30.9 g/dL (32.0-36.0); Mean Corpuscular Hemoglobin 29.4 pg (27.0-31.0); Mean Corpuscular Volume 95.2 fl (78.0-98.0); Mean Platelet Volume 10.2 fL (7.4-10.4); Platelet Count 129 10x3/uL (130-400); RBC Distribution Width 19.2 % (11.5-14.5); Red Blood Cell (RBC) Count 4.18 mill/uL (4.70-6.10); White Blood Cell (WBC) Count 4.6 10x3/uL (4.8-10.8)
[2022-12-10 00:55] LABS: ALT (SGPT) 8 U/L (8-55); AST (SGOT) 14 U/L (5-34); Albumin 4.2 g/dL (3.4-4.8); Alkaline Phosphatase 97 U/L (40-110); Anion Gap 19 mmol/L (10-20); BUN (Urea Nitrogen) 44 mg/dL (8.4-25.7); Bilirubin, Total 0.9 mg/dL (0.2-1.2); Calc. Creatinine Clearance 0 mL/min (70-130); Carbon Dioxide 24 mmol/L (23-31); Chloride 104 mmol/L (98-107); Estimated GFR 5; Glucose 119 mg/dL (83-110); Lipase 23 U/L (8-78); Magnesium 2.1 mg/dL (1.6-2.6); Potassium 4.9 mmol/L (3.5-5.1); Protein, Total 7.2 g/dL (5.8-8.1); Sodium 142 mmol/L (136-145)
[2022-12-10] MEDS ORDERED: Ondansetron PF 4 MG/2 ML Vial ONE (01:00)
[2022-12-10] MEDS ORDERED: HYDROmorphone 0.5 MG/0.5 ML SYRINGE ONE (01:03)
[2022-12-10 01:16] LABS: CKMB 1.3 ng/mL (0-6.6)
[2022-12-10] MEDS ORDERED: Nitroglycerin 50 MG/250 ML BOT 250 ML ONE (04:12)
[2022-12-10] MEDS ORDERED: Ondansetron ODT 4 MG TAB PO PRN (04:55)
[2022-12-10] MEDS ORDERED: Acetaminophen 325 MG TAB PO PRN (04:55)
[2022-12-10] MEDS ORDERED: Acetaminophen 650 MG Suppository PR PRN (04:55)
[2022-12-10] MEDS ORDERED: Ondansetron PF 4 MG/2 ML Vial IVP PRN (04:55)
[2022-12-10] MEDS ORDERED: Dextrose 5% in Water 1,000 ML IV PRN (05:22)
[2022-12-10] MEDS ORDERED: HumaLOG 300 UNITS/3 ML VIAL SC PRN ×2 (05:22)
[2022-12-10] MEDS ORDERED: Dextrose 50% Abboject 50 ML SYRINGE SLOW IVP PRN (05:22)
[2022-12-10] MEDS ORDERED: Nitroglycerin 50 MG/250 ML BOT 250 ML IVPB SCH (05:30)
[2022-12-10 05:36] LABS: Troponin I 0.113 ng/mL (< 0.028)
[2022-12-10 05:50] LABS: Hep B Core Total Ab Non-Reactive (NonReactive); Hep B Core Total Index 0.09 S/CO (0-0.79)
[2022-12-10 05:51] LABS: Hep B Surf Ag Non-Reactive S/CO (NonReactive)
[2022-12-10 05:55] LABS: HBSAB Concentration 136.31 mIU/mL; Hep B Surf AB Reactive (NonReactive)
[2022-12-10 06:27] VITALS: BMI 22.7
[2022-12-10] MEDS: Heparin 5,000 UNITS/ML VIAL SC SCH ×3 (08:11→20:22)
[2022-12-10] MEDS ORDERED: hydrALAZINE 20 MG/ML VIAL SLOW IVP PRN (08:46)
[2022-12-10] MEDS ORDERED: Heparin 10,000 UNITS/ 10 ML VIAL ONE (08:49)
[2022-12-10] MEDS ORDERED: Pantoprazole 40 MG VIAL IVP SCH (09:00)
[2022-12-10] MEDS ORDERED: Losartan 25 MG TAB PO SCH (09:00)
[2022-12-10] MEDS ORDERED: Iopamidol-370 76% 500 ML MDV (1 ML CHARGE) ONE (09:00)
[2022-12-10] MEDS: Losartan 25 MG TAB PO SCH ×2 (09:25→20:22)
[2022-12-10 09:47] LABS: Troponin I 0.226 ng/mL (< 0.028)
[2022-12-10] MEDS: Carvedilol 6.25 MG TAB PO SCH ×2 (10:37→20:23)
[2022-12-10] MEDS: hydrALAZINE 25 MG TAB PO SCH (20:22)
[2022-12-10] MEDS: ERLEADA 60 MG PO SCH (20:24)
[2022-12-11 04:24] LABS: Anion Gap 12 mmol/L (10-20); BUN (Urea Nitrogen) 32 mg/dL (8.4-25.7); Calc. Creatinine Clearance 10 mL/min (70-130); Calcium 9.7 mg/dL (7.8-10.44); Carbon Dioxide 28 mmol/L (23-31); Chloride 101 mmol/L (98-107); Estimated GFR 8; Glucose 97 mg/dL (83-110); Sodium 137 mmol/L (136-145)
[2022-12-11 04:39] LABS: Band 3 % (5-11); Hemoglobin 10.8 g/dL (14.0-18.0); Hypochromia SLIGHT = 6-15 cells (100X) (0-5/hpf); Lymphocytes 34 % (21-51); MDiff Complete? YES; Mean Corpuscular HGB CONC 29.7 g/dL (32.0-36.0); Mean Corpuscular Volume 94.4 fl (78.0-98.0); Mean Platelet Volume 10.6 fL (7.4-10.4); Monocytes 4 % (0-10); Neutrophil 55 % (42-75); Platelet Count 118 10x3/uL (130-400); Platelet Morphology Comment Appears Decreased; RBC Distribution Width 19.1 % (11.5-14.5); Reactive Lymphocytes 4 % (0-10); Red Blood Cell (RBC) Count 3.87 mill/uL (4.70-6.10); White Blood Cell (WBC) Count 4.2 10x3/uL (4.8-10.8)
[2022-12-11] MEDS: Losartan 25 MG TAB PO SCH ×2 (08:45→20:47)
[2022-12-11] MEDS: Carvedilol 6.25 MG TAB PO SCH ×2 (08:45→20:47)
[2022-12-11] MEDS: Heparin 5,000 UNITS/ML VIAL SC SCH ×3 (08:46→20:48)
[2022-12-11] MEDS: hydrALAZINE 25 MG TAB PO SCH ×3 (09:47→20:47)
[2022-12-11 12:00] LABS: Hep C IgG Ab Non-Reactive (NonReactive)
[2022-12-11 12:04] LABS: Hep C Index 0.14 S/CO (0-0.79)
[2022-12-11 20:55] VITALS: BP 149/65
[2022-12-11] MEDS: ERLEADA 60 MG PO SCH (21:02)
[2022-12-12] MEDS ORDERED: Carvedilol 6.25 MG TAB PO SCH (08:46)
[2022-12-12] MEDS ORDERED: Heparin 10,000 UNITS/ 10 ML VIAL ONE (08:53)
[2022-12-12] MEDS: Heparin 5,000 UNITS/ML VIAL SC SCH (09:17)
[2022-12-12] MEDS: Losartan 25 MG TAB PO SCH (09:17)
[2022-12-12 10:10] VITALS: TEMP 98.5
== END 2022-12-12 16:08 | disposition home or self-care (01) | DRG 291 ==
LOC: ERS 23:38 → CCU 12-10 04:29
PROVIDERS: ADMIT Student in an Organized Health Care Education/Training Program; ATTEND Internal Medicine
PROC: 5A1D70Z Performance of Urinary Filtration, Intermittent, Less than 6 Hours Per Day (ICD-10-PCS; principal; 2022-12-10)
DX: I13.0 Hypertensive heart and chronic kidney disease with heart failure and stage 1 through stage 4 chronic kidney disease, or unspecified chronic kidney disease (principal); I50.23 Acute on chronic systolic (congestive) heart failure; N18.6 End stage renal disease; J96.00 Acute respiratory failure, unspecified whether with hypoxia or hypercapnia; I16.1 Hypertensive emergency; K80.30 Calculus of bile duct with cholangitis, unspecified, without obstruction; T86.19 Other complication of kidney transplant; I50.1 Left ventricular failure, unspecified; N25.81 Secondary hyperparathyroidism of renal origin; C79.51 Secondary malignant neoplasm of bone; C64.9 Malignant neoplasm of unspecified kidney, except renal pelvis; E11.22 Type 2 diabetes mellitus with diabetic chronic kidney disease; Y83.8 Other surgical procedures as the cause of abnormal reaction of the patient, or of later complication, without mention of misadventure at the time of the procedure; D63.1 Anemia in chronic kidney disease; I25.5 Ischemic cardiomyopathy; C61 Malignant neoplasm of prostate; I25.10 Atherosclerotic heart disease of native coronary artery without angina pectoris; Z95.5 Presence of coronary angioplasty implant and graft; Z99.2 Dependence on renal dialysis; Z85.038 Personal history of other malignant neoplasm of large intestine; Z88.1 Allergy status to other antibiotic agents; Z88.8 Allergy status to other drugs, medicaments and biological substances; Z79.890 Hormone replacement therapy; Z79.52 Long term (current) use of systemic steroids; Z79.899 Other long term (current) drug therapy; Z79.82 Long term (current) use of aspirin; Z79.02 Long term (current) use of antithrombotics/antiplatelets; Z85.528 Personal history of other malignant neoplasm of kidney; Z90.49 Acquired absence of other specified parts of digestive tract
CPT/HCPCS: 36415; 36416; 71045; 74177; 76705; 80048; 80053; 82553; 83690; 83735; 84484; 85025; 86704; 90935; 93005; 94660; 96374; 96375; C9113; G0257; J1170; J1644; J2405; Q9967

== ENCOUNTER 2023-04-25 08:38 | Outpatient (CLI) | payer MEDICARE | END 2023-04-25 08:39 | disposition home or self-care (01) | LOC: CT 08:38 | PROVIDERS: ATTEND Psychiatry & Neurology Neurology | DX: S06.9X9S Unspecified intracranial injury with loss of consciousness of unspecified duration, sequela (principal) | CPT/HCPCS: 70450 ==

== ENCOUNTER 2023-05-07 11:10 | Emergency (ER) | payer OTHER, MEDICARE ==
[2023-05-07] MEDS ORDERED: Acetaminophen 500 MG TAB ONE (12:30)
== END 2023-05-07 12:43 | disposition home or self-care (01) ==
LOC: ERS 11:10
DX: S80.01XA Contusion of right knee, initial encounter (principal); M17.11 Unilateral primary osteoarthritis, right knee; I10 Essential (primary) hypertension; E11.9 Type 2 diabetes mellitus without complications; G47.30 Sleep apnea, unspecified; W01.10XA Fall on same level from slipping, tripping and stumbling with subsequent striking against unspecified object, initial encounter; Z95.5 Presence of coronary angioplasty implant and graft; Z87.891 Personal history of nicotine dependence; Z99.2 Dependence on renal dialysis; Z79.82 Long term (current) use of aspirin; Z79.899 Other long term (current) drug therapy

== ENCOUNTER 2023-06-11 12:28 | Outpatient (CLI) | payer MEDICARE | END 2023-06-11 12:29 | disposition home or self-care (01) | LOC: EEG 12:28 | PROVIDERS: ATTEND Psychiatry & Neurology Neurology | DX: R56.9 Unspecified convulsions (principal) | CPT/HCPCS: 95816 ==

== ENCOUNTER 2023-09-10 12:16 | Emergency (ER) | payer MEDICARE ==
[~2023-09-10 12:16] MED LIST: Iopamidol-370 76% 500 ML MDV (1 ML CHARGE) ONE
[2023-09-10 13:00] LABS: #Eosinphils 0.2 thou/uL (0.0-0.7); #Monocytes 0.4 thou/uL (0.11-0.59); #Neutrophils 3.5 thou/uL (1.40-6.50); %Basophils 0.8 % (0.0-1.0); %Lymphocytes 17.5 % (21.0-51.0); %Neutrophils 70.9 % (42.0-75.0); Hematocrit 32.6 % (42.0-52.0); Hemoglobin 9.9 g/dL (14.0-18.0); Mean Corpuscular HGB CONC 30.4 g/dL (32.0-36.0); Mean Corpuscular Hemoglobin 30.7 pg (27.0-31.0); Mean Corpuscular Volume 101.2 fl (78.0-98.0); Mean Platelet Volume 10.7 fL (7.4-10.4); Red Blood Cell (RBC) Count 3.22 mill/uL (4.70-6.10)
[2023-09-10 13:22] LABS: ALT (SGPT) Less than 7 U/L (8-55); AST (SGOT) 9 U/L (5-34); Alkaline Phosphatase 134 U/L (40-110); Anion Gap 16 mmol/L (10-20); BUN (Urea Nitrogen) 52 mg/dL (8.4-25.7); Bilirubin, Total 0.7 mg/dL (0.2-1.2); Calc. Creatinine Clearance 0 mL/min (70-130); Calcium 8.9 mg/dL (7.8-10.44); Carbon Dioxide 26 mmol/L (23-31); Chloride 101 mmol/L (98-107); Estimated GFR 4; Globulin 2.9 g/dL (2.4-3.5); Glucose 103 mg/dL (83-110); Potassium 4.8 mmol/L (3.5-5.1); Protein, Total 6.9 g/dL (5.8-8.1); Sodium 138 mmol/L (136-145)
[2023-09-10 13:46] LABS: Platelet Count 127 10x3/uL (130-400)
== END 2023-09-10 15:35 | disposition home or self-care (01) ==
LOC: ERS 12:16
DX: R31.0 Gross hematuria (principal); I12.0 Hypertensive chronic kidney disease with stage 5 chronic kidney disease or end stage renal disease; E11.22 Type 2 diabetes mellitus with diabetic chronic kidney disease; N18.6 End stage renal disease; N28.1 Cyst of kidney, acquired; D73.4 Cyst of spleen; Z95.5 Presence of coronary angioplasty implant and graft; Z99.2 Dependence on renal dialysis; Z87.891 Personal history of nicotine dependence; Z79.82 Long term (current) use of aspirin; Z79.899 Other long term (current) drug therapy
CPT/HCPCS: 36415; 51701; 74177; 80053; 85025; 93005; Q9967